=== PATIENT | female | born 1970 | race Caucasian/White ===

== ENCOUNTER 2019-07-29 10:07 | Emergency (ER) | payer SELFPAY ==
[2019-07-29 10:13] VITALS: BP 176/106; PULSE 79; RESP 22; TEMP 36.3; O2SAT 100
--- NOTE | 2019-07-29 10:34 | ED.GENADUL_ITS ---
Discharge Plan Disposition Patient Disposition: HOME Condition: Stable Discharge Details Chief Complaint: Nausea/Vomit/Diar Clinical Impression: Gastroenteritis, Proctitis, Colitis Primary Care Provider: Prisca Gutierrez ED Provider: Rahel Carlisle Home Meds and New Rx's Prescriptions: New hydrochlorothiazide 12.5 mg tablet 12.5 mg PO DAILY 30 Days Qty: 30 RF: 0 ondansetron HCl [Zofran] 4 mg tablet 4 mg PO Q8H PRN (Reason: nausea and vomiting) Qty: 7 RF: 0 Discontinued chlorthalidone 25 mg Tablet 25 mg PO DAILY RF: 0 lisinopril 10 mg Tablet 10 mg PO DAILY RF: 0 Discharge Instructions Instructions: Proctitis (ED), Gastroenteritis (ED), Colitis (ED) Additional Instructions: You may have a viral gastrointestinal infection which can be self-limited and lasts for the next few days which is commonly referred to as gastroenteritis. Your CAT scan also noted inflammation in your small intestine and a sending colon which is consistent with colitis. There was also a significant amount of inflammation noted in your rectal wall which can be referred to as proctitis. You were evaluated by general surgeon Dr. Fajardo in the emergency department today. She recommends that you follow-up in the general surgery office within the next 1 to 2 weeks for reevaluation and for scheduling a colonoscopy. Take the Zofran as needed and directed for nausea and vomiting. Drink plenty of fluids. Follow a bland diet of bananas, rice, applesauce, toast. Stop taking your lisinopril and chlorthalidone. Once your current illness resolves and if your blood pressure remains high, you can start taking the hydrochlorothiazide. Follow-up with your primary care doctor within the next 2 weeks for reevaluation. Return to the emergency department if you develop any worsening or concerning symptoms such as fever, worsening pain or vomiting. Referrals: Tonja Fajardo DO [OSTEOPATHIC DOCTOR] - Discharge Data Discharge Physician: Rahel Carlisle Medical Decision Making 1020 -- 49-year-old female with history of hypertension and obesity presents with vomiting, diarrhea and abdominal pain since last night. She states she saw her PCP a few days ago for her hypertension and she started lisinopril a few days ago and chlorthalidone last night. She also states she recently changed her diet to try to lose weight due to her hypertension and that she ate a burger and lunch meat sandwich yesterday. She denies recent antibiotics or travel. She denies fever or urinary symptoms. Skin to the buttocks appears consistent with a local inflammation irritation, likely from sitting on the toilet from frequent bouts of diarrhea, versus contac t dermatitis, versus tinea corporis vs early cellulitis. Patient appears uncomfortable, mainly due to her nausea and is noted to be sitting up and belching and hyperventilating. She has tenderness to palpation across her lower abdomen, worse in right lower quadrant. Differential diagnosis includes gastroenteritis, medication reaction, food poisoning, appendicitis, colitis, UTI. Will place an IV, bolus IV fluids, screening labs, urinalysis, urine test as well as CT abdomen and pelvis. Will give a dose of Zofran and reassess. 1115 --patient reassessed -after no relief with Zofran she was given a dose of Compazine. She feels better now. 1200 --patient reassessed - c/o pain. Will give a dose of morphine. Labs reviewed. WBC 15. Lipase, electrolytes within normal limits. Urinalysis notes 3-5 WBCs but appears contaminated. 1245 --CT reviewed with radiologist and notes severe rectal wall thickening which could be consistent with a severe proctitis or possibly a rectal carcinoma and recommends colonoscopy or sigmoidoscopy. Results discussed with general surgery Dr. Fajardo who will come to evaluate patient in the ED. patient is requesting to go home as she is uncomfortable in the bed here. She states she feels better and would rather be at home. She is agreeable to stay to wait for surgery. 1400 --discussed with Dr. Fajardo -evaluated patient at bedside and recommends patient follow-up in the surgery office within the next 1 to 2 weeks for reevaluation and colonoscopy. Leukocytosis may be due to gastroenteritis at this time. Patient feels much better and appears much more comfortable. We will send with Zofran and she is advised to drink plenty of fluids and a bland diet. Also discussed with Dr. Gutierrez patient's primary care doctor regarding patient's hypertension and agrees with stopping the lisinopril and chlorthalidone at this time. Will start hydrochlorothiazide once current illness resolves. Patient advised to follow-up with the primary care doctor and surgery and to return here with any concerns. Medical Records Medical records reviewed: Yes I reviewed the patient's medical records. Imaging Data Radiologic Study: Radiologist's impression: CT ABDOMEN PELVIS W CLINICAL HISTORY: lower abd pain, worse RLQ, r/o appendicitis TECHNIQUE: CT examination of the abdomen and pelvis was performed with bolus infusion of 100 cc of Omnipaque 350. COMPARISON: RENAL COLIC WO CONTRAST from 05/17/2017 UPPER ABD WITH CONTRAST (P) from 01/08/2018 FINDINGS: Images obtained through the lung bases are unremarkable. Liver, spleen and pancreas appear normal. Gallbladder and bile ducts are CT normal. 23 millimeter left adrenal mass again noted, grossly unchanged in comparison with prior CT of 05/17/2017. Adrenals and kidneys are otherwise unremarkable. No significant abdominal wall hernia seen. No significant abdominal or pelvic adenopathy. Abdominal aorta is of normal diameter and no major vascular abnormality is seen. Appendix appears normal. Colon and most of the small bowel is collapsed which makes evaluation of wall thickness uncertain but there is a question of wall thickening of the terminal ileum and ascending colon. There is marked wall thickening and apparent edema of the rectum and the distal sigmoid with very prominent increased attenuation in the perirectal fat as well as some free fluid. The increased attenuation in perirectal fat has a somewhat nodular appearance. No gross free air identified. [place] structures appear intact. IMPRESSION: Very abnormal appearance of the rectum, severe acute inflammatory or infectious process is probably most likely but the possibility of neoplastic disease would have to be raised. Correlation with colonoscopy recommended. Additionally there is questionable wall thickening of terminal ileum and ascending colon raising the possibility of colitis. Apparently stable left adrenal lesion, 23 millimeters. Lab Data Lab results reviewed: Yes I reviewed the patient's lab results. Labs: Laboratory Tests Range/Units 07/29/19 07/29/19 07/29/19 10:20 10:20 11:05 WBC (4.4-10.8) k/cumm 15.52 H RBC (4.00-5.20) m/cumm 5.26 H Hgb (12.0-15.5) g/dL 15.6 H Hct (36.0-46.0) % 47.6 H MCV (80-95) fL 90.5 MCH (27.0-33.0) pg 29.7 MCHC (32.0-36.0) g/dL 32.8 RDW (11.7-14.6) % 13.3 Plt Count (130-400) x1000/uL 575 H MPV (8.0-11.0) fL 9.5 Immature Gran % 0.2 Neutrophils % 88.1 Lymphocytes % 8.4 Monocytes % 3.1 Eosinophils % 0.1 Basophils % 0.1 Absolute Neutrophils (1.2-6.7) k/cumm 13.67 H Absolute Lymphocytes (1.2-3.4) k/cumm 1.30 Absolute Monocytes (0.11-0.7) k/cumm 0.48 Absolute Eosinophils (0.0-0.7) k/cumm 0.02 Absolute Basophils (0.0-0.2) k/cumm 0.02 Sodium (136-145) mmol/L 134 L Potassium (3.5-5.1) mmol/L 4.2 Chloride (98-107) mmol/L 98 Carbon Dioxide (21.0-32.0) mmol/L 21.4 Anion Gap (3-11) mmol/L 14.6 H BUN (7-18) mg/dL 14 Creatinine (0.55-1.02) mg/dL 1.10 H Estimated GFR/1.73 m2 (mL/min/1.73m2) 53.01 Glucose (70-100) mg/dL 163 H Calcium (8.5-10.1) mg/dL 9.4 Total Bilirubin (0.2-1.0) mg/dL 0.9 AST (15-37) U/L 21 ALT (14-59) U/L 39 Alkaline Phosphatase (46-116) U/L 113 Total Protein (6.4-8.2) g/dL 8.7 H Albumin (3.4-5.0) g/dL 3.9 Lipase (73-393) U/L 90 Urine Color (Yellow) Sofi Urine Clarity (Clear) Cloudy Urine pH (5-8) 6.0 Ur Specific [place] (1.005-1.025) 1.025 Urine Protein (Negative) mg/dL 100 H Urine Ketones (Negative) mg/dL 80 H Urine Blood (Negative) Trace-lysed H Urine Nitrite (Negative) Negative Urine Bilirubin (Negative) Small H Urine Urobilinogen (Up TO 0.2) EU/dL 0.2 Ur Leukocyte Esterase (Negative) Negative Urine RBC (0-2) 0-2 Urine WBC (0-5) HPF 3-5 Ur Epithelial Cells (Negative) HPF Many Urine Crystals (Negative) HPF Negative Urine Bacteria (Negative) HPF Many Urine Casts (Negative) LPF Negative Urine Mucus (Negative) Heavy Urine Other (Negative) Few yeast Ur Culture Indicated? No/sq. contamination Urine Glucose (Negative) mg/dL Negative HPI General Mode of arrival: ambulatory . Date/Time Provider Initiated Documentation: 07/29/19 10:07 . Limitations to Documentation: no limitations . Information obtained by: patient . History of Present Illness described as moderate, with intensity rated at 5. Quality is described as aching, and is localized to the abdomen. Patient reports no radiation. Patient started experiencing this day(s) and it has been constant. other things that improve symptom(s), (nausea improved with belching) Movement worsens symptoms (nausea worse with movement/supine) . Patient notes nausea/vomiting (5 episodes, mainly bile ) and other (5+ episodes of diarrhea, small formed mixed with water, brown, no blood); denies confusion, chest pain, cough, diaphoresis, fever/chills, headaches, loss of appetite, malaise, rash, seizure, shortness of breath, syncope and weakness. Patient did receive the following treatments prior to arrival, none Related Data Home Medications Medication Instructions Recorded Confirmed hydrochlorothiazide 12.5 mg PO DAILY 30 Days #30 tab 07/29/19 ondansetron HCl [Zofran] 4 mg PO Q8H PRN #7 tab 07/29/19 Previous Rx's Medication Instructions Recorded hydrochlorothiazide 12.5 mg PO DAILY 30 Days #30 tab 07/29/19 ondansetron HCl [Zofran] 4 mg PO Q8H PRN #7 tab 07/29/19 Allergies Allergy/AdvReac Type Severity Reaction Status Date / Time Penicillins Allergy Mild Skin Rash Unverified 07/29/19 10:19 lisinopril AdvReac Unverified 07/29/19 10:19 General Stated Complaint: Nausea/Vomit/Diar PHUONG: 3 Review of Systems All systems reviewed & are unremarkable except as noted in HPI and below Constitutional Constitutional: Reports as per HPI, Denies chills and Denies fever(s) Eyes Eyes: Denies blurry vision ENT Ears, Nose, Mouth, and Throat: Denies dizziness, Denies sore throat and Denies throat swelling Cardiovascular Cardiovascular: Denies chest pain and Denies dyspnea Respiratory Respiratory: Denies cough and Denies dyspnea Gastrointestinal Gastrointestinal: Reports abdominal pain, Reports diarrhea and Reports vomiting Genitourinary Genitourinary: Denies hematuria and Denies dysuria Musculoskeletal Musculoskeletal: Denies back pain and Denies numbness Integumentary/Breasts Skin/Breast: Denies lesions and Denies rash Neurologic Neurologic: Denies dizziness, Denies focal weakness and Denies numbness Allergic/Immunologic Allergic/Immunologic: Denies throat swelling [facility] Medical History History of cervical dysplasia HTN (hypertension) Impaired fasting glucose Lumbar back pain Obesity Sciatica of right side Situational, disturbance, acute Tobacco abuse Surgical History Melanoma (Acute) Family History Mother Breast cancer Other Asthma Social History Smoking/Tobacco Use Status: Current every day Alcohol Intake: current Alcohol Intake frequency: a few times a month Drug use: Never Substance use type: does not use Do you feel safe at home: Yes Do you feel safe in your relationship?: Yes Exam Const General: cooperative, uncomfortable and no acute distress Orientation: alert and awake HENMT Head: normal to inspection Face and sinus: normal facial exam Eyes General: appearance normal, both eyes and all related structures EOM: EOM intact bilaterally Neck Neck: normal visual inspection and No submandibular swelling Lymphatic: no lymphadenopathy noted Chest Chest: normal inspection of the chest and no tenderness Resp Effort & Inspection: normal respiratory effort and able to speak in complete sentences Auscultation: clear to auscultation bilaterally Cardio Rate: regular rate Rhythm: regular rhythm GI Inspection: normal to inspection Palpation: soft, not firm, not rigid and tender (across lower abdomen, worse in RLQ) Auscultation: normal bowel sounds Back/Spine/Pelvis Back/spine/pelvis image: 1. Erythematous tender blanching erythema with intermittent small papules with some areas of central clearing and slight hyperpigmentation of border. Skin General skin exam: no rashes or lesions noted Neuro General: alert, awake and oriented x3 Cognition: normal cognition Speech: speech normal Motor: muscle tone normal throughout Sensory Exam: no sensory deficits noted Extrem General: normal to inspection, full ROM, normal capillary refill, no calf t enderness bilaterally and no edema Psych Appearance: grossly normal Mental Status: mental status grossly normal Speech and Movement: speech and movement normal Affect: normal affect Course Vital Signs Vital signs: Vital Signs Temperature 97.3 F L 07/29/19 10:13 Pulse 79 07/29/19 10:13 Respiratory Rate 22 07/29/19 10:13 Blood Pressure 176/106 H 07/29/19 10:13 Pulse Oximetry 100 07/29/19 10:13 Temperature 97.3 F L 07/29/19 10:13 Pulse 79 07/29/19 10:13 Respiratory Rate 22 07/29/19 10:13 Respiratory Effort Non-Labored 07/29/19 10:17 Blood Pressure 176/106 H 07/29/19 10:13 Blood Pressure Position Sitting 07/29/19 10:13 Pulse Oximetry 100 07/29/19 10:13 Oxygen Delivery Method Room Air 07/29/19 10:13 Oxygen Flow Rate 0 07/29/19 10:13 Pain Level 8 07/29/19 10:13
[2019-07-29] MEDS: Normal Saline 1,000 ML 1000 ML IV ×2 (10:35→12:20)
--- NOTE | 2019-07-29 10:35 | DI.CT_ITS ---
EXAM: CT ABDOMEN PELVIS W CLINICAL HISTORY: lower abd pain, worse RLQ, r/o appendicitis TECHNIQUE: CT examination of the abdomen and pelvis was performed with bolus infusion of 100 cc of O mnipaque 350. COMPARISON: RENAL COLIC WO CONTRAST from 05/17/2017 UPPER ABD WITH CONTRAST (P) from 01/08/2018 FINDINGS: Images obtained through the lung bases are unremarkable. Liver, spleen and pancreas appear normal. Gallbladder and bile ducts are CT normal. 23 millimeter left adrenal mass again noted, grossly unch anged in comparison with prior CT of 05/17/2017. Adrenals and kidneys are otherwise unremarkable. No significant abdominal wall hernia seen. No significant abdominal or pelvic adenopathy. Abdominal aorta is of normal diameter and no major vascular abnormality is seen. Appendix appears normal. Colon and most of the small bowel is collapsed which makes evaluation of wa ll thickness uncertain but there is a question of wall thickening of the terminal ileum and ascending colon. There is marked wall thickening and apparent edema of the rectum and the distal sigmoid with very prominent increased attenuation in the perirectal fat as well as some free fluid. The increase d attenuation in perirectal fat has a somewhat nodular appearance. No gross free air identified. Gy n structures appear intact. IMPRESSION: Very abnormal appearance of the rectum, severe acute inflammatory or infectious process is probably m ost likely but the possibility of neoplastic disease would have to be raised. Correlation with colon oscopy recommended. Additionally there is questionable wall thickening of terminal ileum and ascending colon raising the possibility of colitis. Apparently stable left adrenal lesion, 23 millimeters.
[2019-07-29] MEDS: Ondansetron 4 MG/2 ML VIAL IVP (10:45)
[2019-07-29 10:49] LABS: Abs Immature Grans 0.03 k/cumm (0.0-0.09); Absolute Basophil Count 0.02 k/cumm (0.0-0.2); Absolute Eosinophil Count 0.02 k/cumm (0.0-0.7); Absolute Monocyte Count 0.48 k/cumm (0.11-0.7); Absolute Neutrophil Count 13.67 k/cumm (1.2-6.7); Basophils % 0.1; Eosinophils % 0.1; HCT 47.6 % (36.0-46.0); HGB 15.6 g/dL (12.0-15.5); Immature Grans % 0.2; Lymphocytes % 8.4; Mean Corp. HGB Concentration 32.8 g/dL (32.0-36.0); Mean Corpuscular Hemoglobin 29.7 pg (27.0-33.0); Mean Corpuscular Volume 90.5 fL (80-95); Mean Platelet Volume 9.5 fL (8.0-11.0); Monocytes % 3.1; Neutrophils % 88.1; Platelet Count 575 x1000/uL (130-400); RBC 5.26 m/cumm (4.00-5.20); RBC Distribution Width 13.3 % (11.7-14.6); White Blood Cell Count 15.52 k/cumm (4.4-10.8)
[2019-07-29 10:59] LABS: ALT 39 U/L (14-59); AST 21 U/L (15-37); Albumin 3.9 g/dL (3.4-5.0); Alkaline Phosphatase 113 U/L (46-116); Anion Gap 14.6 mmol/L (3-11); BUN 14 mg/dL (7-18); Bilirubin, Total 0.9 mg/dL (0.2-1.0); CO2 21.4 mmol/L (21.0-32.0); Calcium 9.4 mg/dL (8.5-10.1); Chloride 98 mmol/L (98-107); Estimated GFR 53.01 (mL/min/1.73m2); Glucose 163 mg/dL (70-100); Lipase 90 U/L (73-393); Potassium 4.2 mmol/L (3.5-5.1); Sodium 134 mmol/L (136-145); Total Protein 8.7 g/dL (6.4-8.2)
[2019-07-29] MEDS: Prochlorperazine 10 MG/2 ML VIAL (11:04)
[2019-07-29] MEDS: Normal Saline Flush 10 ML SYR IVP (11:13)
[2019-07-29 11:20] LABS: Bilirubin Small (Negative); Blood Trace-lysed (Negative); Clarity Cloudy (Clear); Glucose Negative (Negative); Ketones 80 mg/dL (Negative); Leukocyte Esterase Negative (Negative); Nitrite Negative (Negative); Specific Gravity 1.025 (1.005-1.025); Urobilinogen 0.2 EU/dL (Up TO 0.2)
[2019-07-29 11:37] LABS: Bacteria Many HPF (Negative); C & S Indicated? No/Sq. Contamination; Casts Negative LPF (Negative); Crystals Negative HPF (Negative); Epithelial Cells Many HPF (Negative); Mucus Heavy (Negative); Other Cells Few Yeast (Negative); RBC 0-2 (0-2)
[2019-07-29 11:42] VITALS: BP 119/63; PULSE 86; O2SAT 96
[2019-07-29] MEDS: Omnipaque 350 MG/ML 100 ML BTL IV (12:11)
[2019-07-29] MEDS: LORazepam 2 MG/ML VIAL (13:13)
[2019-07-29 13:42] VITALS: BP 181/81; PULSE 97; O2SAT 96
--- NOTE | 2019-07-29 13:46 | SCONE_ITS ---
Assessment and Plan Assessment and plan (1) Diarrhea: Status: Acute Assessment and plan: favor viral G-E vs food poisoning and supportive care From her history- this does not sound like an acute episode of IBD that would require steriods. She has no recent abx use or hospital exposure and C. diff is low. She should f/u in 2-4 wks and schedule for CE given the signif findings on CT scan (2) Abnormal CT scan, colon: Status: Acute History of Present Illness History of Present Illness Chief Complaint: p Narrative: pt has badominal pain in the lower segments and in rectal area. Started last pm. Recently started taking the HCTZ. started about 4-6 hrs after she took. Might have eaten some bad food. + vomting. pain was first. than fecal urgency adn diarrhea and than vomting. +chills. no prior hx. no one else at home is sick. no new pets. no camping or travel out of the state. Swelling showed up w/ taking new medication. no family hx of IBD. GPa had MM. no new rashes or joint pain. Review of Systems All systems reviewed & are unremarkable except as noted in HPI and below [facility] Medical History (Updated 08/03/19 @ 16:08 by Tonja Fajardo DO) Abnormal CT scan, colon (Acute) Diarrhea (Acute) History of cervical dysplasia HTN (hypertension) Impaired fasting glucose Lumbar back pain Obesity Sciatica of right side Situational, disturbance, acute Tobacco abuse Surgical History Melanoma (Acute) Family History Mother Breast cancer Other Asthma Social History Smoking/Tobacco Use Status: Current every day Alcohol Intake: current Alcohol Intake frequency: a few times a month Drug use: Never Substance use type: does not use Do you feel safe at home: Yes Do you feel safe in your relationship?: Yes Exam Const General: cooperative, healthy appearing, comfortable, no acute distress, well developed and well groomed Nutritional Appearance: average body habitus and well nourished Orientation: alert, awake and oriented x3 HENMT Head: normal to inspection, normocephalic and atraumatic Ears: hearing grossly normal bilaterally and external ears normal General nose exam: external nose normal Face and sinus: normal facial exam and sinuses nontender Mouth: oral mucosae normal, lip normal, tongue normal and moist mucous membranes Teeth and gingiva: dentition normal Eyes General: appearance normal, both eyes and all related structures Conjunctivae: conjunctivae normal Sclera: sclerae normal Pupils: PERRL Neck Neck: normal visual inspection and full ROM Chest Chest: normal inspection of the chest Resp Effort & Inspection: normal respiratory effort, able to speak in complete sentences, no cough, no nasal flaring, not tachypneic and no use of accessory muscles Auscultation: clear to auscultation bilaterally, no rales, no rhonchi and no wheezes Cardio Jugular venous pressure: no JVD Rate: regular rate Rhythm: regular rhythm GI Inspection: normal to inspection, no edema and non-distended Palpation: soft, no masses, nontender and No ascites Auscultation: normal bowel sounds Skin General skin exam: no rashes or lesions noted Trauma: no lacerations or abrasions Other: skin on buttocks is nl. Qi-anal area shows mild excoriation from wiping. no bleeding. no masses Neuro General: alert, oriented x3, oriented, gait normal, moves all extremities, no focal motor deficits and CN's II-XI intact bilaterally Cognition: normal cognition Speech: speech normal Gait: normal gait Motor: muscle tone normal throughout Extrem General: normal to inspection, full ROM and no clubbing, cyanosis or edema Psych Appearance: grossly normal and well kempt Mental Status: mental status grossly normal Speech and Movement: speech and movement normal Affect: normal affect Results Last Vital Signs Temp 36.3 C L 07/29/19 10:13 Pulse 97 H 07/29/19 13:42 Resp 22 07/29/19 10:13 BP 181/81 H 07/29/19 13:42 Pulse Ox 96 07/29/19 13:42 Labs Result diagrams: 07/29/19 10:20 07/29/19 10:20 Labs: Laboratory Results - last 24 hr 07/29/19 07/29/19 07/29/19 10:20 10:20 11:05 WBC 15.52 H RBC 5.26 H Hgb 15.6 H Hct 47.6 H MCV 90.5 MCH 29.7 MCHC 32.8 RDW 13.3 Plt Count 575 H MPV 9.5 Immature Gran % 0.2 Neutrophils % 88.1 Lymphocytes % 8.4 Monocytes % 3.1 Eosinophils % 0.1 Basophils % 0.1 Absolute Neutrophils 13.67 H Absolute Lymphocytes 1.30 Absolute Monocytes 0.48 Absolute Eosinophils 0.02 Absolute Basophils 0.02 Sodium 134 L Potassium 4.2 Chloride 98 Carbon Dioxide 21.4 Anion Gap 14.6 H BUN 14 Creatinine 1.10 H Estimated GFR/1.73 m2 53.01 Glucose 163 H Calcium 9.4 Total Bilirubin 0.9 AST 21 ALT 39 Alkaline Phosphatase 113 Total Protein 8.7 H Albumin 3.9 Lipase 90 Urine Color Sofi Urine Clarity Cloudy Urine pH 6.0 Ur Specific [place] 1.025 Urine Protein 100 H Urine Ketones 80 H Urine Blood Trace-lysed H Urine Nitrite Negative Urine Bilirubin Small H Urine Urobilinogen 0.2 Ur Leukocyte Esterase Negative Urine RBC 0-2 Urine WBC 3-5 Ur Epithelial Cells Many Urine Crystals Negative Urine Bacteria Many Urine Casts Negative Urine Mucus Heavy Urine Other Few yeast Ur Culture Indicated? No/sq. contamination Urine Glucose Negative
[2019-07-29] MEDS: Ondansetron O.D.T. 4 MG TABEF, 3 TABS/BTL PO (14:25)
[2019-08-04 23:10] LABS: Saccharomyces cerevisiae IgA 10.2 U; Saccharomyces cervisiae IgG 14.1 U
== END 2019-07-29 14:20 | disposition home or self-care (01) ==
PROVIDERS: Surgery; Emergency Provider Physician Assistant; PCP Family Medicine
DX: K52.9 Noninfective gastroenteritis and colitis, unspecified (principal); K62.89 Other specified diseases of anus and rectum; I10 Essential (primary) hypertension
CPT/HCPCS: 36415; 80053; 83690; 96361; 96374; 99252; 99285; 74177; 81003; 81015; 85025; 86255; 86671; 99284; J0780; J2060; J2405; J3490

== ENCOUNTER 2019-08-28 07:06 | Emergency (ER) | payer SELFPAY ==
[2019-08-28 07:09] VITALS: BP 139/95; PULSE 80; RESP 18; TEMP 36.4; O2SAT 97
[2019-08-28] MEDS: Clindamycin 300 MG CAP 600 MG PO (08:23)
--- NOTE | 2019-08-28 08:23 | W.ED.GENAD ---
Discharge Plan Disposition Patient Disposition: HOME Condition: Good Discharge Details Chief Complaint: DentalOral Clinical Impression: Contusion of face, Lip injury Primary Care Provider: Prisca Gutierrez ED Provider: Marleni Sanz Home Meds and New Rx's Prescriptions: New clindamycin HCl 300 mg capsule 300 mg PO TID Qty: 30 RF: 0 No Action ondansetron HCl [Zofran] 4 mg tablet 4 mg PO Q8H PRN (Reason: nausea and vomiting) Qty: 7 RF: 0 hydrochlorothiazide 25 mg Tablet 25 mg PO DAILY RF: 0 Discharge Instructions Instructions: Contusion in Adults (ED) Additional Instructions: Ice to area of swelling. Keep head of bed elevated. Use antibiotic as prescribed. Observe for any increased swelling, pain or discomfort. Return for any worsening, concerns or alarming symptoms sooner if needed. Recheck with primary care doctor if not improving the next 3 to 5 days. Return if needed. Medical Decision Making 49-year-old very pleasant woman presents to the emergency room after being struck in the face with an electrical cord yesterday. Patient presents due to persistent and increasing swelling to her upper lip and cheeks. Patient is concerned with persistent discomfort and swelling. Patient denies dental injury or obvious trauma. No shifting of teeth or dental pain. Patient is concerned with the possibility of infection. We did discuss conservative treatments including icing anti-inflammatory and elevating head which she has reportedly done in the last 24 hours. Discussed antibiotic treatment versus close observation. Patient's preference is antibiotic treatment at this time. Patient is noted to have a penicillin allergy therefore clindamycin will be prescribed. Ice, anti-inflammatory and elevation of head were re-encouraged. Patient reports her understanding. Alarming symptoms for which she should have return were encouraged. The patient was stable and requested discharge. Prior to discharge, my usual and customary return precautions were reviewed with the patient - this included follow-up instructions and reasons to return to the Emergency Department if conditions worsens, does not improve as expected, or other new concerns arise. HPI General Date/Time Provider Initiated Documentation: 08/28/19 08:07. HPI Narrative: Is a very pleasant 49-year-old man who presents to the emergency room after facial trauma. Patient reports she was at work yesterday pulling along extension cord and it snapped back striking her in the upper lip of the face. Patient reports persistent and increasing swelling of her lip and face. Patient has tried icing as well as anti-inflammatory and elevating her head without relief. Patient is concerned with the persistence of swelling. Swelling now extending toward the cheeks. Patient denies dental pain. Denies any obvious shifting of her teeth. No loose teeth. Patient denies any vision changes. No nasal involvement. No other concerns or complaints at this time. Eating and drinking without difficulty. Related Data Home Medications Medication Instructions Recorded Confirmed ondansetron HCl [Zofran] 4 mg PO Q8H PRN #7 tab 07/29/19 clindamycin HCl 300 mg PO TID #30 cap 08/28/19 hydrochlorothiazide 25 mg PO DAILY 08/28/19 08/28/19 Previous Rx's Medication Instructions Recorded ondansetron HCl [Zofran] 4 mg PO Q8H PRN #7 tab 07/29/19 clindamycin HCl 300 mg PO TID #30 cap 08/28/19 Allergies Allergy/AdvReac Type Severity Reaction Status Date / Time Penicillins Allergy Mild Skin Rash Unverified 08/28/19 07:13 lisinopril AdvReac Unverified 08/28/19 07:13 General Stated Complaint: DentalOral PHUONG: 4 Review of Systems All systems reviewed & are unremarkable except as noted in HPI and below Constitutional Constitutional: Denies chills, Denies fever(s) and Denies headache(s) ENT Ears, Nose, Mouth, and Throat: Denies bleeding gums, Denies dental pain and Denies headache(s) Integumentary/Breasts Skin/Breast: Reports skin swelling Neurologic Neurologic: Denies headache(s) [facility] Medical History Abnormal CT scan, colon (Acute) Diarrhea (Acute) History of cervical dysplasia HTN (hypertension) Impaired fasting glucose Lumbar back pain Obesity Sciatica of right side Situational, disturbance, acute Tobacco abuse Surgical History Melanoma (Acute) Social History Smoking/Tobacco Use Status: Current every day Alcohol Intake: current Alcohol Intake frequency: a few times a month Drug use: Never Substance use type: does not use Do you feel safe at home: Yes Do you feel safe in your relationship?: Yes Exam Narrative Exam Narrative: CONST: Healthy appearing patient, in no acute distress. Well hydrated. Alert and alert. HENMT: Head nomocephalic, normal to inspection. Atraumatic. Hearing grossly normal. Patient with obvious upper lip swelling which is approximately double the size of her lower lip, cheeks bilaterally with mild edema. Obvious area of ecchymosis noted to the upper right side of the lip. No obvious loose teeth. No dental tenderness with palpation. TMs appear normal bilaterally. Pharynx is mildly erythematous without exudate EYES: General normal appearance. Alignment normal. Eyelids normal. Conjunctiva normal. NECK: Normal visual inspection. FROM. Trachea midline. No Midline tenderness. CHEST: Normal insepection of the chest. RESP: Normal respiratory effort. Speaking full sentences. No cough. No audible wheezing. No retractions. CARDIO: No JVD. SKIN: Normal. Dry. No rashes. Course Vital Signs Vital signs: Vital Signs Temperature 36.4 C L 08/28/19 07:09 Pulse 80 08/28/19 07:09 Respiratory Rate 18 08/28/19 07:09 Blood Pressure 139/95 H 08/28/19 07:09 Pulse Oximetry 97 08/28/19 07:09 Temperature 36.4 C L 08/28/19 07:09 Temperature Source Skin 08/28/19 07:09 Pulse 80 08/28/19 07:09 Respiratory Rate 18 08/28/19 07:09 Respiratory Effort 08/28/19 07:14 Blood Pressure 139/95 H 08/28/19 07:09 Blood Pressure Position Sitting 08/28/19 07:09 Pulse Oximetry 97 08/28/19 07:09 Oxygen Delivery Method Room Air 08/28/19 07:09 Oxygen Flow Rate 0 08/28/19 07:09 Pain Level 5 08/28/19 07:09
== END 2019-08-28 08:28 | disposition home or self-care (01) ==
LOC: ER 08:32
PROVIDERS: Emergency Provider Physician Assistant; PCP Family Medicine
DX: S09.93XA Unspecified injury of face, initial encounter (principal); S00.83XA Contusion of other part of head, initial encounter; R22.0 Localized swelling, mass and lump, head; W20.8XXA Other cause of strike by thrown, projected or falling object, initial encounter; Y99.0 Civilian activity done for income or pay; I10 Essential (primary) hypertension
CPT/HCPCS: 99283

== ENCOUNTER 2020-01-29 13:00 | Outpatient (REF) | payer BC, SELFPAY ==
[2020-02-01 15:51] LABS: COVID-19 RT-PCR UVMMC Result Negative (Negative)
== END 2020-01-29 13:20 ==
LOC: NCHCN 13:00
PROVIDERS: PCP Family Medicine; Visit Provider Family Medicine
DX: J02.9 Acute pharyngitis, unspecified (principal); Z03.818 Encounter for observation for suspected exposure to other biological agents ruled out
CPT/HCPCS: U0003

== ENCOUNTER 2020-05-06 02:21 | Outpatient (CLI) | payer BC, SELFPAY ==
--- NOTE | 2020-05-06 | DI.MAMMO_ITS ---
EXAM: MG MAMMO SCREENING CLINICAL HISTORY: SCREENING, [facility],Z00.00 TECHNIQUE: Bilateral full field digital CC and MLO mammographic images were obtained with 3D tomosyn thesis and utilizing computer aided detection (CAD). COMPARISON: Available for comparison. FINDINGS: Masses/Architectural Distortion: There is increased prominence of a focal asymmetric area in the medi al right breast on the craniocaudad view. Microcalcifications: No suspicious pleomorphic-type are seen. Skin Thickening/Nipple Retraction: None. IMPRESSION: 1. Increased prominence of a focal asymmetric density in the medial right breast on the craniocaudad view. 2. Spot CC view and ultrasound are requested for further evaluation. BI-RADS Category 0 - Assessment Incomplete: Need additional imaging evaluation Breast Density - Category B - Scattered areas of fibroglandular density A negative radiographic report should not delay biopsy if a dominant or clinically suspicious mass is present. Up to ten percent of cancers are not identified on mammography. A negative report may reinforce clinical impression. Adenosis and dense breasts may obscure an underlying neoplasm. False positive reports average 6 to 10%. Patient will receive a letter notifying them of these results.
== END 2020-05-06 02:41 ==
PROVIDERS: PCP Family Medicine; Visit Provider Family Medicine
DX: Z12.31 Encounter for screening mammogram for malignant neoplasm of breast (principal)
CPT/HCPCS: 77063; 77067

== ENCOUNTER 2020-05-11 01:41 | Outpatient (CLI) | payer BC, SELFPAY ==
--- NOTE | 2020-05-11 | DI.US_ITS ---
EXAM: MG MAMMO SCREEN CALL BACK UNI CLINICAL HISTORY: F/U MAMMO, INCREASED ASYMMETRIC DENSITY ON CC VIEWE TECHNIQUE: Spot compression views including C- View and tomographic imaging were performed. COMPARISON: 06 May 2020 and exams from 2011 and 2016. FINDINGS: Cc and MLO spot compression views were performed of the medial and central right breast. There is a small area persistent nodularity. Right breast ultrasound shows an ovoid fluid collection in the upper inner quadrant 6 centimeters fro m the nipple measuring 9 x 5 x 5 millimeters. There is a small central hilum, likely representing a lymph node. In the upper outer quadrant, 7 cm from the nipple there is a normal appearing lymph node which is also seen on mammograms. A 4 millimeters cyst is seen in the 12 o'clock position 2 cm from the nipple. An 11 millimeter cyst is seen in the 11 o'clock position, 1 cm from the nipple. IMPRESSION: Right breast: BI-RADS Category 3 - 6 month - Probably Benign Finding: Recommend follow-up mammography in 6 months. Recommend follow-up ultrasound in 6 months. Breast Density Category B, scattered fibroglandular densities.
== END 2020-05-11 02:01 ==
PROVIDERS: PCP Family Medicine; Visit Provider Family Medicine
DX: Z12.39 Encounter for other screening for malignant neoplasm of breast (principal); R92.8 Other abnormal and inconclusive findings on diagnostic imaging of breast; R92.2 Inconclusive mammogram
CPT/HCPCS: 76642; 77063; 77067

== ENCOUNTER → 2020-10-06 03:26 | Outpatient (CLI) | payer BC, SELFPAY ==
[2020-10-06 08:33] LABS: HCT 46.1 % (36.0-46.0); HGB 15.2 g/dL (11.2-15.7); MCH 30.6 pg (27.0-33.0); MCV 92.8 fL (80-95); MPV 9.2 fL (8.0-11.0); Platelet Count 428 10^3/uL (130-400); RBC 4.97 10^6/uL (3.93-5.22); RDW 12.8 % (11.7-14.6); RDW-SD 44.1 fL; WBC 11.08 10^3/uL (4.4-10.8)
[2020-10-06 08:44] LABS: Hemoglobin A1C 6.1 % (<5.7)
[2020-10-06 09:34] LABS: Anion Gap 10.7 mmol/L (3-11); BUN 12 mg/dL (7-18); CO2 26.3 mmol/L (21.0-32.0); CREATININE 0.82 mg/dL (0.55-1.02); Calcium 8.9 mg/dL (8.5-10.1); Calculated LDL 118 mg/dL (<100); Chloride 101 mmol/L (98-107); Cholesterol 199 mg/dL (<200); Glucose 135 mg/dL (74-106); HDL Cholesterol 43 mg/dL (40-60); Potassium 4.2 mmol/L (3.5-5.1); Sodium 138 mmol/L (136-145); TSH (W/Ref FT4) 3.93 uIU/mL (0.36-3.74); Triglyceride 190 mg/dL (<150)
[2020-10-11 14:19] LABS: Renin Activity, Plasma 4.1 ng/mL/h
== END ==
PROVIDERS: PCP Family Medicine; Visit Provider Family Medicine
DX: I10 Essential (primary) hypertension (principal); R73.03 Prediabetes; E27.9 Disorder of adrenal gland, unspecified
CPT/HCPCS: 36415; 80048; 80061; 85027; 82088; 83036; 84244; 84439; 84443

== ENCOUNTER 2021-02-07 03:17 | Outpatient (CLI) | payer BC, SELFPAY ==
[2021-02-07 09:37] LABS: Abs Immature Grans 0.06 10^3/uL (0.0-0.06); Absolute Basophil Count 0.11 10^3/uL (0.0-0.2); Absolute Eosinophil Count 0.27 10^3/uL (0.0-0.7); Absolute Lymphocyte Count 2.05 10^3/uL (1.2-3.4); Absolute Monocyte Count 0.83 10^3/uL (0.1-0.8); Basophils % 0.9; Eosinophils % 2.2; HCT 47.1 % (36.0-46.0); HGB 15.4 g/dL (11.2-15.7); Immature Grans % 0.5; MCH 30.5 pg (27.0-33.0); MCHC 32.7 % (32.0-36.0); MCV 93.3 fL (80-95); MPV 9.3 fL (8.0-11.0); Monocytes % 6.9; Neutrophils % 72.5; Nucleated RBC 0 %; Platelet Count 394 10^3/uL (130-400); RBC 5.05 10^6/uL (3.93-5.22); RDW 13.2 % (11.7-14.6); RDW-SD 44.9 fL; WBC 12.05 10^3/uL (4.4-10.8)
[2021-02-07 09:40] LABS: Absolute Neutrophil Count 8.74 10^3/uL (1.2-6.7)
[2021-02-08 15:53] LABS: Erythropoietin 6.5 mIU/mL (2.6 - 18.5)
[2021-02-14 13:46] LABS: JAK2 Sequencing Result see interpretation
[2021-02-16 14:50] LABS: Indication for Study See Comments; Specimen Type Peripheral blood
[2021-02-16 14:51] LABS: BCR-ABL1 p210 FusionTranscript See Comments
[2021-02-16 14:52] LABS: BCR-ABL1 Interpretation See Comments; Limitations and Disclaimers See Comments
== END 2021-02-07 03:18 | disposition home or self-care (01) ==
LOC: LBO 03:17
PROVIDERS: PCP Family Medicine; Visit Provider Internal Medicine Hematology & Oncology
DX: D72.9 Disorder of white blood cells, unspecified (principal)
CPT/HCPCS: 0027U; 36415; 81206; 82668; 85025

== ENCOUNTER 2021-02-14 01:42 | Outpatient (CLI) | payer BC, SELFPAY ==
--- NOTE | 2021-02-14 14:35 | DI.MAMMO_ITS ---
Exam(s) MG MAMMO DIAGNOSTIC BI EXAM: MG MAMMO DIAGNOSTIC BI CLINICAL HISTORY: [facility] MAMMO F/U R92.8 TECHNIQUE: Mammograms were interpreted according to the usual protocol including computer analysis w ith CAD system, tomosynthesis and C-view imaging. Additional CC and MLO spot-compression views were performed of the medial and central portions of the right breast. COMPARISON: MG SCREENING JARRET MAMMO W/CAD DIGI from 10/25/2011 MG SCREENING JARRET MAMMO W/CAD DIGI from 10/25/2011 MG Screening Bilat Mammo from 07/10/2017 MG MG MAMMO SCREENING from 05/06/2020 MG MG MAMMO SCREENING from 05/06/2020 MG MG MAMMO SCREEN CALL BACK UNI from 05/11/2020 FINDINGS: The breasts are composed of scattered fibroglandular densities, Breast Density category B. The exam is is a six-month follow-up of the right breast and annual follow-up of the left breast. The previously questioned asymmetric density medially in the right breast is no longer present. Lymp h node is again noted in the upper outer quadrant. No suspicious masses or suspicious microcalcifica tions are seen in either breast.. No skin thickening or abnormal axillary lymph nodes are seen. IMPRESSION: BI-RADS Category 1, Negative mammogram Yearly screening mammography is recommended. Breast Density - Category B, scattered fibroglandular densities. A negative radiographic report should not delay biopsy if a dominant or clinically suspicious mass is present. Up to ten percent of cancers are not identified on mammography. A negative report may reinforce clinical impression. Adenosis and dense breasts may obscure an underlying neoplasm. False positive reports average 6 to 10%. Patient will receive a letter notifying them of these results.
== END 2021-02-14 02:02 ==
PROVIDERS: PCP Family Medicine; Visit Provider Family Medicine
DX: Z12.31 Encounter for screening mammogram for malignant neoplasm of breast (principal); R92.8 Other abnormal and inconclusive findings on diagnostic imaging of breast; N64.59 Other signs and symptoms in breast
CPT/HCPCS: 77062; 77066; G0279

== ENCOUNTER 2021-07-19 10:21 | Outpatient (REF) | payer BC, SELFPAY ==
[2021-07-19 15:00] LABS: Anion Gap 9.6 mmol/L (3-11); BUN 10 mg/dL (7-18); CO2 29.4 mmol/L (21.0-32.0); CREATININE 0.7 mg/dL (0.55-1.02); Calcium 9.6 mg/dL (8.5-10.1); Chloride 99 mmol/L (98-107); Glucose 115 mg/dL (74-106); Potassium 4.1 mmol/L (3.5-5.1); Sodium 138 mmol/L (136-145)
[2021-07-19 15:09] LABS: Hemoglobin A1C 6.2 % (<5.7)
== END 2021-07-19 10:22 | disposition home or self-care (01) ==
LOC: NCHCN 10:21
PROVIDERS: PCP Family Medicine; Visit Provider Family Medicine
DX: I10 Essential (primary) hypertension (principal); R73.03 Prediabetes
CPT/HCPCS: 80048; 83036

== ENCOUNTER 2021-10-12 05:07 | Emergency (ER) | payer BC, SELFPAY ==
[2021-10-12] VITALS (17 sets, daily range): BP systolic 133–143; BP diastolic 79–93; PULSE 73–86; RESP 13–20; TEMP 36.4; O2SAT 94–98
--- NOTE | 2021-10-12 05:09 | ED.GENADUL_ITS ---
Discharge Plan Disposition Patient Disposition: HOME Condition: Improving Discharge Details Clinical Impression: Angioedema Primary Care Provider: Prisca Gutierrez ED Provider: Storm Navarro Harpster Meds and New Rx's Prescriptions: New prednisone 20 mg tablet 40 mg PO HS Qty: 8 RF: 0 Continued hydrochlorothiazide 25 mg Tablet 25 mg PO DAILY RF: 0 amlodipine 10 mg tablet 10 mg PO DAILY RF: 0 Discharge Instructions Instructions: Angioedema (ED) Additional Instructions: Please take Benadryl 50 mg every 6-8 hours for the next couple of days. Start prednisone tonight and take as directed. Follow-up with primary care next week as scheduled. Return to the ED if increasing swelling, difficulty breathing, difficulty swallowing, fever. Referrals: Prisac Gutierrez MD [Primary Care Provider] - Medical Decision Making Patient presents with angioedema which she has had a couple of times previously but very mild. This has developed over a few hours. In the past responded to Benadryl so seems likely that this is histamine related or idiopathic and not bradykinin related. She is not on MAURICE inhibitor. She has had no new medications or exposures. Airway at this time is protected. I do not think this is infection related. She is not febrile and feels well otherwise. No pruritis or rash, no wheezing. Will place IV, check labs, give IV Benadryl and Solu-Medrol and reevaluate. Patient with fairly rapid and marked improvement with IV Benadryl and Solu- Medrol. At time of discharge still some mild tongue edema present but much much improved. We will continue Benadryl and prednisone orally at home. C4 comp lement lab pending but other laboratory studies unremarkable. She has an appointment with primary care next week already scheduled. Return to ED if increased swelling, difficulty breathing, difficulty swallowing, fever. Medical Records Medical records reviewed: Yes I reviewed the patient's medical records. Lab Data Lab results reviewed: Yes I reviewed the patient's lab results. HPI General Mode of arrival: ambulatory . Date/Time Provider Initiated Documentation: 10/12/21 05:09 . Limitations to Documentation: no limitations . Information obtained by: patient, RN notes reviewed and old records reviewed . HPI Narrative: Patient presents to ED with tongue swelling, difficulty swallowing, difficulty speaking. She has some pain and discomfort associated with. She went to bed last night feeling fine. She has not been ill. Woke up around midnight and noticed some mild swelling for which she took Benadryl. She was able to fall back asleep and woke up. This morning with more swelling. She took another Benadryl and then presented to the ED. She reports that this has happened once or twice in the past but did not to this extent. It responded to Benadryl. She has no new medications. She has allergy listed of lisinopril the patient does not aware of what the reaction was. She denies any pruritus or rash. She denies difficulty breathing. She denies any abdominal pain or vomiting. Related Data Home Medications Medication Instructions Recorded Confirmed hydrochlorothiazide 25 mg PO DAILY 08/28/19 10/12/21 amlodipine 10 mg PO DAILY 10/12/21 10/12/21 prednisone 40 mg PO HS #8 tab 10/12/21 Previous Rx's Medication Instructions Recorded prednisone 40 mg PO HS #8 tab 10/12/21 Allergies Allergy/AdvReac Type Severity Reaction Status Date / Time Penicillins Allergy Mild Skin Rash Unverified 10/12/21 05:35 lisinopril AdvReac Unverified 10/12/21 05:35 General PHUONG: 4 Review of Systems Narrative: 07/06 Review of Systems completed and is negative except as stated above in HPI (Systems reviewed: Const, Eyes, ENT, Resp, CV, GI, , MSK, Skin, Neuro) PFSH All Active Problems (Updated 10/12/21 @ 06:51 by Storm Navarro MD) Angioedema (Acute) Abnormal CT scan, colon (Acute) Diarrhea (Acute) Medical History History of cervical dysplasia HTN (hypertension) Impaired fasting glucose Obesity Ovarian cyst Proctitis Sacroiliac joint dysfunction Saphenous vein thrombophlebitis Sciatica Tobacco abuse Surgical History Melanoma Family History Mother Breast cancer Other Asthma Social History Smoking/Tobacco Use Status: Current every day Tobacco Type: cigarettes Smoking risk assessment performed?: Yes Alcohol Intake: current Alcohol Intake frequency: a few times a month Drug use: Never Substance use type: does not use Do you feel safe at home: Yes Do you feel safe in your relationship?: Yes Exam Narrative Exam Narrative: Const: Obese female in NAD. HEENT: NC/AT. Normal facial exam. Some mild swelling of lips but marked swelling of tongue L > R. Appears to have some edema to uvula but difficult to completely visualize. Eyes: Normal conjunctiva and sclera. Normal lids. Neck: Supple. Trachea midline. No stridor. Lungs: Normal respiratory effort. Lungs are clear. Cor: RRR without murmur/gallop. GI: Soft. NT/ND. Neuro: A+O x 3. Normal speech except for difficulty with phonation. Normal mentation, gait. Cranial nerves II - XII grossly intact. No gross motor or sensory deficit. Ext: No C/C/E. Skin: Warm and dry without rash.
[2021-10-12] MEDS: methylPREDNISolone SUCC 125 MG VIAL IVP (05:43)
[2021-10-12 05:45] LABS: Abs Immature Grans 0.03 10^3/uL (0.0-0.06); Absolute Basophil Count 0.09 10^3/uL (0.0-0.2); Absolute Eosinophil Count 0.33 10^3/uL (0.0-0.7); Absolute Lymphocyte Count 1.94 10^3/uL (1.2-3.4); Absolute Monocyte Count 0.78 10^3/uL (0.1-0.8); Absolute Neutrophil Count 7.73 10^3/uL (1.2-6.7); Basophils % 0.8; HCT 46.1 % (36.0-46.0); HGB 15.2 g/dL (11.2-15.7); Immature Grans % 0.3; Lymphocytes % 17.8; MCH 30.3 pg (27.0-33.0); Monocytes % 7.2; Neutrophils % 70.9; Nucleated RBC 0 %; Platelet Count 469 10^3/uL (130-400); RBC 5.01 10^6/uL (3.93-5.22); RDW-SD 44.4 fL
[2021-10-12] MEDS: diphenhydrAMINE 50 MG/ML VIAL IVP (05:45)
[2021-10-12 05:47] LABS: ESR 27 mm/hr (0-20)
[2021-10-12 05:58] LABS: ALT 35 U/L (14-59); AST 21 U/L (15-37); Albumin 3.5 g/dL (3.4-5.0); Alkaline Phosphatase 113 U/L (46-116); Anion Gap 7.2 mmol/L (3-11); BUN 12 mg/dL (7-18); Bilirubin, Total 0.6 mg/dL (0.2-1.0); CO2 29.8 mmol/L (21.0-32.0); CREATININE 0.8 mg/dL (0.55-1.02); Calcium 8.8 mg/dL (8.5-10.1); Chloride 101 mmol/L (98-107); Glucose 125 mg/dL (74-106); Potassium 3.1 mmol/L (3.5-5.1); Sodium 138 mmol/L (136-145)
[2021-10-12 06:07] LABS: C-Reactive Protein 0.75 mg/dL (0.0-0.3)
[2021-10-13 11:39] LABS: C4 Complement 37 mg/dL (13-39)
== END 2021-10-12 07:06 | disposition home or self-care (01) ==
PROVIDERS: Emergency Provider Emergency Medicine; PCP Family Medicine
DX: T78.3XXA Angioneurotic edema, initial encounter (principal)
CPT/HCPCS: 36415; 80053; 85652; 96374; 96375; 99284; 85025; 86140; 86160; 99283; J1200; J2930

== ENCOUNTER 2021-11-21 08:32 | Emergency (ER) | payer BC, SELFPAY ==
[2021-11-21] VITALS (12 sets, daily range): BP systolic 120–165; BP diastolic 75–108; PULSE 68–88; RESP 14–20; TEMP 37; O2SAT 96–98
--- NOTE | 2021-11-21 09:14 | ED.GENADUL_ITS ---
Discharge Plan Disposition Patient Disposition: HOME Condition: Stable Discharge Details Clinical Impression: Vomiting, Acute hypokalemia Primary Care Provider: Prisca Gutierrez ED Provider: Loan Artis Home Meds and New Rx's Prescriptions: New metoclopramide HCl [Reglan] 10 mg tablet 10 mg PO Q6H PRNQty: 10 0RF potassium chloride 20 mEq tablet extended release 20 meq PO DAILY Qty: 10 0RF Continued hydrochlorothiazide 25 mg Tablet 25 mg PO DAILY 0RF amlodipine 10 mg tablet 10 mg PO DAILY 0RF Label Comments: Take 1 tablet by mouth once a day Discharge Instructions Instructions: Hypokalemia (ED) Additional Instructions: Please follow-up with your primary care physician and have your potassium rechecked, get 1 to 2 days of your hydrochlorothiazide Take the potassium as prescribed Clear liquid diet as tolerated followed by bland diet Reglan as needed for nausea and vomiting Please return immediately should you have new or worsening complaints including persistent vomiting, weakness, dizziness Referrals: Prisca Gutierrez MD [Primary Care Provider] - Medical Decision Making Patient appears well She is feeling symptomatically improved and able to tolerate p.o. Her potassium was supplemented and she was discharged with outpatient p.o. potassium. She feels comfortable taking She will get 2 doses of her hydrochlorothiazide and reassess this medication with her PCP She is otherwise stable at time of discharge home and able to tolerate p.o. Given the threshold to return should she have new or worsening complaints home She has a nontender abdominal exam and no indication for CT imaging at the time of my Repeat potassium in 48 hours p.o. recommended HPI General Date/Time Provider Initiated Documentation: 11/21/21 08:47 . HPI Narrative: This 51-year-old female presents with report of nausea, vomiting, abdominal cramping. Denies any fever or diarrhea. No chest pain or shortness of breath. States she feels lightheaded. Denies any weakness. Denies any rashes or lesions. Patient states that she ate possible spoiled food approximately 6 to 7 hours prior to onset of symptoms. She denies any blood in vomitus. Related Data Home Medications Medication Instructions Recorded Confirmed hydrochlorothiazide 25 mg tablet 25 mg PO DAILY 08/28/19 11/21/21 amlodipine 10 mg tablet 10 mg PO DAILY 10/12/21 11/21/21 metoclopramide HCl 10 mg tablet 10 mg PO Q6H PRN #10 tab 11/21/21 (Reglan) potassium chloride 20 mEq 20 meq PO DAILY #10 tab 11/21/21 tablet,extended release Previous Rx's Medication Instructions Recorded metoclopramide HCl 10 mg tablet 10 mg PO Q6H PRN #10 tab 11/21/21 (Reglan) potassium chloride 20 mEq 20 meq PO DAILY #10 tab 11/21/21 tablet,extended release Allergies Allergy/AdvReac Type Severity Reaction Status Date / Time Penicillins Allergy Mild Skin Rash Unverified 11/21/21 08:45 lisinopril AdvReac Unverified 11/21/21 08:45 General Stated Complaint: Nausea/Vomit/Diar PHUONG: 2 Review of Systems All systems reviewed & are unremarkable except as noted in HPI and below PFSH All Active Problems (Updated 11/21/21 @ 11:31 by MIESHA Crain) Vomiting (Acute) Acute hypokalemia (Acute) Abnormal CT scan, colon (Acute) Diarrhea (Acute) Medical History History of cervical dysplasia HTN (hypertension) Impaired fasting glucose Obesity Ovarian cyst Proctitis Sacroiliac joint dysfunction Saphenous vein thrombophlebitis Sciatica Tobacco abuse Surgical History Melanoma Family History Mother Breast cancer Other Asthma Social History Smoking/Tobacco Use Status: Current every day Tobacco Type: cigarettes Smoking risk assessment performed?: Yes Alcohol Intake: current Alcohol Intake frequency: a few times a month Drug use: Never Substance use type: does not use Do you feel safe at home: Yes Do you feel safe in your relationship?: Yes Exam Const General: cooperative, comfortable and no acute distress HENMT Other: Moist mucous membranes Eyes Pupils: PERRL Resp Effort & Inspection: normal respiratory effort Auscultation: clear to auscultation bilaterally Cardio Rate: regular rate Rhythm: regular rhythm GI Inspection: normal to inspection Auscultation: normal bowel sounds Other: Nontender abdominal Skin General skin exam: no rashes or lesions noted Neuro General: patient alert and patient oriented x3 Course Vital Signs Vital signs: Vital Signs Temperature 37 C 11/21/21 08:41 Pulse 88 11/21/21 08:41 Respiratory Rate 16 11/21/21 08:41 Blood Pressure 144/93 H 11/21/21 08:41 Pulse Oximetry 98 11/21/21 08:41 Temperature 37 C 11/21/21 08:41 Temperature Source Skin 11/21/21 08:41 Pulse 88 11/21/21 08:41 Respiratory Rate 16 11/21/21 08:41 Respiratory Effort 11/21/21 08:41 Blood Pressure 144/93 H 11/21/21 08:41 Blood Pressure Position Sitting 11/21/21 08:41 Pulse Oximetry 98 11/21/21 08:41 Oxygen Delivery Method Room Air 11/21/21 08:41 Oxygen Flow Rate 0 11/21/21 08:41 Pain Level 5 11/21/21 08:41 Critical Care Time Critical Care Time Attestation: 40 min secondary to EKG, telemetry monitoring, IV potassium, p.o. potassium administration, fluid resuscitation
[2021-11-21 09:43] LABS: Abs Immature Grans 0.05 10^3/uL (0.0-0.06); Absolute Basophil Count 0.04 10^3/uL (0.0-0.2); Absolute Neutrophil Count 9.63 10^3/uL (1.2-6.7); Basophils % 0.3; Eosinophils % 0.2; HCT 45.9 % (36.0-46.0); HGB 15.4 g/dL (11.2-15.7); Immature Grans % 0.4; Lymphocytes % 15.7; MCH 29.7 pg (27.0-33.0); MCHC 33.6 % (32.0-36.0); MCV 88.6 fL (80-95); MPV 9.3 fL (8.0-11.0); Monocytes % 7.8; Neutrophils % 75.6; Nucleated RBC 0 %; Platelet Count 479 10^3/uL (130-400); RBC 5.18 10^6/uL (3.93-5.22); RDW 12.8 % (11.7-14.6); WBC 12.74 10^3/uL (4.4-10.8)
[2021-11-21 09:45] LABS: Absolute Eosinophil Count 0.03 10^3/uL (0.0-0.7); Absolute Monocyte Count 0.99 10^3/uL (0.1-0.8)
[2021-11-21] MEDS: Ondansetron 4 MG/2 ML VIAL IVP (09:48)
[2021-11-21] MEDS: Lactated Ringers 1,000 ML 1000 ML IV (09:48)
[2021-11-21 09:53] LABS: Bilirubin Negative (Negative); Blood Trace-intact (Negative); Clarity Sl Cloudy (Clear); Glucose Negative (Negative); Ketones Negative (Negative); Leukocyte Esterase Negative (Negative); Nitrite Negative (Negative); Specific Gravity 1.015 (1.005-1.025); Urobilinogen 0.2 EU/dL (Up TO 0.2)
[2021-11-21 09:57] LABS: ALT 20 U/L (14-59); AST 19 U/L (15-37); Albumin 3.8 g/dL (3.4-5.0); Alkaline Phosphatase 100 U/L (46-116); Anion Gap 9.4 mmol/L (3-11); BUN 8 mg/dL (7-18); Bilirubin, Total 0.7 mg/dL (0.2-1.0); CO2 29.6 mmol/L (21.0-32.0); CREATININE 0.7 mg/dL (0.55-1.02); Calcium 9.4 mg/dL (8.5-10.1); Chloride 97 mmol/L (98-107); Glucose 142 mg/dL (74-106); Lipase 118 U/L (73-393); Magnesium 2.2 mg/dL (1.8-2.4); Sodium 136 mmol/L (136-145); Total Protein 8.4 g/dL (6.4-8.2)
[2021-11-21 10:00] LABS: Potassium 2.7 mmol/L (3.5-5.1)
--- NOTE | 2021-11-21 10:00 | RT.EKG_ITS ---
APPROVED REPORT Exam: Resting ECG Reason for Exam: hypokalemia Patient Location: E HR:72 bpm ECG Measurements Heart Rate 72 AXIS [place] 196 P 15 QRSd 88 QRS -13 QT 434 T 1 QTc 476 Conclusion Sinus rhythm...normal P axis, V-rate 60- 99 Low voltage, precordial leads...precordial leads <1.0mV sinus rhythm, left axis, non ischemic
[2021-11-21 10:06] LABS: Bacteria Rare HPF (Negative); C & S Indicated? No; Casts Negative LPF (Negative); Crystals Negative HPF (Negative); Epithelial Cells Moderate HPF (Negative); Mucus Trace (Negative); WBC 0-2 HPF (0-5)
[2021-11-21] MEDS: Potassium Chloride 20 MEQ TABCR 40 MEQ PO (10:27)
[2021-11-21] MEDS: POTASSIUM CHLORIDE/0.9% NACL 1,000 ML 500 MEQ IV (10:28)
[2021-11-21] MEDS: Metoclopramide 10 MG/2 ML VIAL IVP (11:22)
== END 2021-11-21 12:52 | disposition home or self-care (01) ==
PROVIDERS: Emergency Provider Physician Assistant; PCP Family Medicine
DX: R11.10 Vomiting, unspecified (principal); R42 Dizziness and giddiness; E87.6 Hypokalemia
CPT/HCPCS: 36415; 80053; 81025; 83690; 93005; 96361; 96365; 96366; 96375; 99284; 81003; 81015; 83735; 85025; 93010; J2405; J2765

== ENCOUNTER 2021-11-24 12:34 | Outpatient (REF) | payer BC, SELFPAY ==
--- OUTSIDE RECORDS SUMMARY | 2021-11-24 12:36 | XMS_ITS ---
:1970 Author Care Team Providers Name Role Phone MARIBEL RAMIREZ Primary Care Provider [phone] Allergies Code Code System Name Reaction Severity Status Onset Penicillins ? ? Active ? Medications Name Status Start Date Stop Date ? ? amlodipine 10 mg tablet Active ? Not avai lable Take 2 tablets every day by oral route. hydrochlorothiazide 25 mg tablet Active ? Not available Take 1 tablet every day by oral route. nicotine 14 mg/24 hr daily transdermal patch Active ? Not available Apply 1 patch every day by transdermal route. nicotine 21 mg/24 hr daily transdermal patch Active ? Not available Apply 1 patch every day by transdermal route. nicotine 7 mg/24 hr daily transdermal patch Active ? Not available Apply 1 patch every day by transdermal route. Problems Name Status Onset Date Source ? Thrombocytosis Active 03/06/2021 ? 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 Obesity Active 03/06/2021 ? Tobacco User Active 03/06/2021 ? Reactive Depression (Situational) Active 03/06/2021 ? Hypertensive Disorder Active 03/06/2021 ? Superficial Thrombophlebitis Active 03/06/2021 ? Proctitis Active 03/06/2021 ? Psoriasis Active 03/06/2021 ? Snoring Active 03/06/2021 ? Prediabetes Active 03/06/2021 ? History of Dysplasia of Cervix Active 03/06/2021 ? Cyst of Right Ovary Active 03/06/2021 ? Procedures Date Name Performed by ? 10/31/2021 Home Sleep Study Information not avai lable Results Lab Results None recorded. Past Encounters 10/31/2021 Snoring Charlene Motta [employer]: [address] [place] [phone], Ph. Social History Tobacco Smoking Status Current Every Day Smoker Notes: 8 ciggs a day Vaccine List None recorded. Plan of Care Reminders Provider Appointments None ? ? recorded. Lab None ? ? recorded. Referral None ? ? recorded. Procedures None ? ? recorded. Surgeries None ? ? recorded. Imaging None ? ? recorded. Vitals Height Weight BMI 168.91 cm 104.33 kg 36.6 kg/m2
--- OUTSIDE RECORDS SUMMARY | 2021-11-24 12:36 | XMS_ITS | Encounter Summary ---
:1970 Author Care Team Providers Name Role Phone Prisca Gutierrez Primary Care Provider [phone] Reason for Visit Telehealth - Video/Zoom Assessment and Plan 1. Snoring Dean has snoring and nocturia as well as HTN and she may have SENAIT based on these symptoms. She was having fatigue previously when the referral was made but now is feeling better rested and park mccollum feels she sleeps well. Her Ridgeway score is only 1-2/3 because she is not sure of details about her snoring. She has HTN which may be caused or worse marilee by untreated SENAIT. I discussed the pathophysiology of SENAIT and the potential consequences of untreated SENAIT including how it relates to her symptoms and comorbid ities. I ordered a HST and discussed wha t will take place the night of the sleep study. She is made awra that if the study is inconclusive a PSG would be recommended given a HST can miss a mild case of SENAIT. She is not sure at this point if sh e would want to pursue a PSG and will make that decision when/if the time comes. I will see her back to review the results as soon as they are available. ? home sleep study Discussion Note: None recorded.Patient educational handouts: No information available. Plan of Care Reminders Provider Appointments Office 30 01/16/2022 Eddie Motta, 12:30PM [employer] [facility] Lab None ? ? recorded. Referral None ? ? recorded. Procedures None ? ? recorded. Surgeries None ? ? recorded. Imaging Home Sleep 10/31/2021 ? Study Medications Name Start Date ? ? amlodipine 10 mg tablet ? Take 2 tablets every day by oral route. hydrochlorothiazide 25 mg tablet ? Take 1 tablet every day by oral route. nicotine 14 mg/24 hr daily transdermal patch ? Apply 1 patch every day by transdermal route. nicotine 21 mg/24 hr daily transdermal patch ? Apply 1 patch every day by transdermal route. nicotine 7 mg/24 hr daily transdermal patch ? Apply 1 patch every day by transdermal route. Medications Administered None recorded. Vitals Height Weight BMI 5 ft 6.5 in 230 lbs 36.6 kg/m2 Results Lab Results None recorded. Allergies Code Code System Name Reaction Severity Onset Penicillins ? ? ? Problems Name Status Onset Date Source ? [...] Home Sleep Study Information not avai lable Vaccine List None recorded. Social History Tobacco Smoking Status Current Every Day Smoker Notes: 8 ciggs a day What is your level of alcohol None consumption? Live alone or with others? with others Do you or have you ever used N any other forms of tobacco or nicotine? What is your level of caffeine Occasional Notes: 1-2 c coffee a consumption? day no coffee on the weekend Are you currently employed? Y Do you use any illicit or N recreational drugs? Functional Status Unknown. Past Encounters 10/31/2021 Snoring Charlene Motta TOBACCO WETTER: [address] [place] [phone], Ph. History of Present Illness Note: <div>Dean Velázqueznzel has a Zoom consultation at the request of Prisca Gutierrez MD for evaluationof snoring and fatigue. She has given consent to have a telehealth visit. Patient is at home, provider is in the office.</div><div>
</div><div>Dean has a medical history to include adrenal mass, HTN, obesity, prediabetes, psoriasis, depression, superficial thombophlebi tis, and nicotine dependence.</div><div>
</div><div>{{Patient Dean#}} feels {{his her*}} biggest problem with sleep is {{snoring* waking up a lot not feeling rested}}.{{He She*}} typically goes to bed at {{9 8-9#}}pm. It takes {{5 5-10#}} minutes to fall asleep. {{He She*}} wakes up {{1 2 3 1-2#}} times a night to {{unknown reason pain bathroom to urinate#}} and it takes {{ a few#}} minutes to get back to sleep. {{He She*}} gets up at {{5 6* 7 8}}am to start {{his her*}} day. {{He She*}} does not take naps. {{He She*}} has occasional disturbances to {{his her*}} sleep to include having {{TV lights noise children pets*}} in the bedroom at night. {{He She*}} has nev er had a sleep study. {{He She*}} sleeps {{alone with someone*}} in a bed.</div><div>
</div><div>SLEEP QUALITY: Feels quality of sleep most nights is {{good* okay poor}}.</div><div>
</div><div>
</div><div>DAYTIME MARANDA RTNESS: Reports level of alertness most days to be {{alert low energy sleepy very sleepy alert to low energy#}}.</div><div>
</div><div>
</div><div>PSYCH SYMPTOMS: {{Has Has not*}} noted worsening memory {{and or*}} concentration. {{Does have Denies current problems with*}} irritability, depression, {{and or*}} anxiety. {{Has Has not*}} noted difficulty with calculations.</div><div>
</div><div>INSOMNIA SYMPTOMS: {{Does have Does not have*}} an active mind at night when trying to sleep. {{Does have Does not have*}}stressful thoughts interfering with sleep. {{Does Does not*}} watch the clock throughout the night. {{Does Does not*}} worry about getting a good night's sleep. </div><div>
</div><div>BREATHING SYMPTOMS: {{Does have* Does not have}} snoring. {{Does have Does not have*}} witnessed apnea. {{Does have Does not have*}} nocturnal choking/gasping/dyspnea.{{Does have Does not have might be a #}} mouth breathing. {{Does have Does not have*}} nasal congestion at night.</div><div>
</div><div>
</div><div>MOVEMENT SYMPTOMS: {{Does have Does not have*}} tossing & turning. {{Does have Does not have*}} messy sheets in the morning. {{Does have Does not have*}} leg or arm jerks, kicks or twitches in sleep or prior to falling asleep. {{Does Does not*}} have an aching, restless or crawling feeling in legs at night. {{Does Does not*}} have a hard time keeping legs still when trying to sleep. {{Does Does not*}} hav e muscle cramps or Angel horses. {{Does Does not*}} have sleep walking or talking.</div><div>
</div><div>
</div><div>DREAM SYMPTOMS: {{Does have Does not have*}} nightmares often that affect ability to sleep. {{Does have Does not have*}} dreams of suffocating/drowning. {{Does Does not*}} dream shortly after falling asleep. {{Does Does not*}} see dreams in the room even when awake.{{Does Does not*}} see or hear things in the room when falling asleep that aren't really there. {{Does Does not*}} see things in the road when driving that aren't really there. {{Has Has not*}} had someone see then act our their dreams. {{Has Has not*}} accidentally injured themselves while sleeping due to own movements/behaviors.</div><div>
</div><div>CATAPLEXY SYMPTOMS: {{Does have Does not have*}} feel limp, lose strength, or fall asleep when very angry, surprised or laughing. {{Does have Doesnot have*}} leg, arm or face weakness when upset. {{Has Has not*}} had episodes of being unable to move when waking up which is often frightening.</div><div>
</div><div>DRIVING: {{Has Has not*}} fallen asleep or nearly fallen asleep driving. {{Has had Has not had*}} an accident related to drowsy driving or not paying attention. {{Does Does not*}} forget the last few miles or minutes while driving. {{Has Has not*}} driven out of [place] and crossed center line or gone onto shoulder when driving. {{Has Has not*}} had a passenger tell them they look sleepy when driving.&lt ;/div><div>
</div><div>ESS today 11/16</div><div>Ridgeway Questionnaire Score 1- 2/3 (she is not sure how loud or often she snores)</div><div>
</div><div>This visit was performed virtually using synchronous audio-visual connection via Zoom. As such, the physical examination is necessarily limited. The risks and benefits of the useof this alternative platform were discussed with the patient and or guardian and verbal consent was obtained. My assessment and plans are based on such examination. Further evaluation, including in-person examination, may be needed depending on the response to management or today's recommendation. </div><div>
</div><div>The patient has been positively identified and has consented to a video visit.</div>Review of Systems: ROS as noted in the HPI Review of Systems ? Notes: <div>wakes with dry lips, no cturia 1-2/night, </div><div>She denies having any night sweats, nocturnal hear tburn, and morning headaches. </div> Physical Exam ? Notes: <div>N/A</div>
[2021-11-24 16:37] LABS: Anion Gap 9.5 mmol/L (3-11); BUN 13 mg/dL (7-18); CO2 28.5 mmol/L (21.0-32.0); CREATININE 0.8 mg/dL (0.55-1.02); Calcium 9.5 mg/dL (8.5-10.1); Chloride 98 mmol/L (98-107); Glucose 111 mg/dL (74-106); Potassium 3.3 mmol/L (3.5-5.1); Sodium 136 mmol/L (136-145)
== END 2021-11-24 12:35 | disposition home or self-care (01) ==
LOC: NCHCN 12:34
PROVIDERS: PCP Family Medicine; Visit Provider Family Medicine
DX: E87.6 Hypokalemia (principal)
CPT/HCPCS: 80048

== ENCOUNTER 2021-12-06 16:34 | Outpatient (REF) | payer BC, SELFPAY ==
[2021-12-06 14:54] LABS: Anion Gap 7.2 mmol/L (3-11); BUN 14 mg/dL (7-18); CO2 25.8 mmol/L (21.0-32.0); CREATININE 0.7 mg/dL (0.55-1.02); Calcium 9.6 mg/dL (8.5-10.1); Chloride 107 mmol/L (98-107); Glucose 110 mg/dL (74-106); Potassium 4.5 mmol/L (3.5-5.1); Sodium 140 mmol/L (136-145)
[2021-12-06 15:49] LABS: Hemoglobin A1C 6.3 % (<5.7)
[2021-12-07 09:42] LABS: Hepatitis C Ab w Rflx HCV PCR Negative (Negative)
[2021-12-07 09:55] LABS: HIV-1/2 Ag & Ab Screen Negative (Negative)
== END 2021-12-06 16:35 | disposition home or self-care (01) ==
LOC: NCHCN 16:34
PROVIDERS: PCP Family Medicine; Visit Provider Family Medicine
DX: I10 Essential (primary) hypertension (principal); R73.03 Prediabetes; Z00.00 Encounter for general adult medical examination without abnormal findings; Z11.4 Encounter for screening for human immunodeficiency virus [HIV]; Z11.59 Encounter for screening for other viral diseases
CPT/HCPCS: 80048; 86803; 87389; 83036

== ENCOUNTER 2021-12-31 02:47 | Emergency (ER) | payer BC, SELFPAY ==
[2021-12-31] VITALS (53 sets, daily range): BP systolic 121–141; BP diastolic 63–90; PULSE 79–98; RESP 12–27; TEMP 36.2–36.8; O2SAT 89–100
[2021-12-31] MEDS: methylPREDNISolone SUCC 125 MG VIAL IVP (03:07)
[2021-12-31] MEDS: EPINEPHrine 0.3 MG KIT 0.5 MG IM (03:08)
--- NOTE | 2021-12-31 03:09 | ED.GENADUL_ITS ---
Discharge Plan Disposition Patient Disposition: HOME Condition: Good Discharge Details Clinical Impression: Angioedema Primary Care Provider: Prisca Gutierrez ED Provider: Александр Tovar Home Meds and New Rx's Prescriptions: New epinephrine [EpiPen 2-Jose] 0.3 MG/0.3 ML auto-injector 0.3 mg IJ PRN PRNQty: 2 5RF prednisone 50 MG tablet 50 mg PO DAILY Qty: 5 0RF Continued hydrochlorothiazide 25 mg Tablet 25 mg PO DAILY 0RF amlodipine 10 mg tablet 10 mg PO DAILY 0RF Label Comments: Take 1 tablet by mouth once a day metoclopramide HCl [Reglan] 10 mg tablet 10 mg PO Q6H PRNQty: 10 0RF potassium chloride 20 mEq tablet extended release 20 meq PO DAILY Qty: 10 0RF Discharge Instructions Instructions: Angioedema (ED) Additional Instructions: At this time your angioedema has resolved. While I do not think the EpiPen is a solution if this recurs, it may slightly temporize your symptoms until you come into the ER for reassessment. If you have any return of swelling for your tongue, or throat return immediately for reassessment and reevaluation. Please follow-up closely with your primary care provider for allergy and antigen testing. Please take the steroid as directed. You can take 10 mg of loratadine every 24 hours. This is an [id number] medication. If you does not have loratadine you can take 25 mg of Benadryl every 6 hours. Please do this for the next 2 to 3 days. If you notice any worsening of your symptoms, or any new symptoms such as vomiting, diarrhea, fever, chills, shortness of breath, chest pain, numbness, weakness, or fainting , please return immediately to the emergency department for reevaluation. Please follow up with your primary care provider as soon as possible for reassessment and reevaluation. As always, it was a pleasure participating in your medical care today. Referrals: Prisca Gutierrez MD [Primary Care Provider] - Medical Decision Making 51-year-old female with a past medical history of hypertension, not on an MAURICE or an ARB, as well as a past medical history of mild angioedema in the past, presents today for swelling of the tongue and throat and neck. Patient states that this evening at around 8 PM she noticed swelling of her tongue and neck, from 8 PM until now which was 7 hours she has taken 12 tablets of 25 mg Benadryl. In spite of this she has had no improvement of her symptoms. She ate at [employer] for lunch, and had pulled pork for dinner, all of which were not new occurrences. She states that the angioedema that she has had in the past always responded quickly to Benadryl. She denies any other allergies or family history of allergies. She denies ever having throat swelling or neck swelling like this before. She denies any other complaints at this time. No chest pain, no shortness of breath. No vomiting or diarrhea. She does admit to difficulty controlling her swallowing, but denies any fever chills or dental pain. No new medications. Physical exam demonstrate swollen neck, but no stridor. Notably swollen tongue, I am unable to see the posterior oropharynx. Lips are normal. Patient is able to control her secretions though. Diagnosis is certainly concerning for angioedema, in the past she is notably responded to Benadryl, including on her last visit here, however clearly not the case today as she has taken a notable amount of Benadryl at home already. With the lack of response to Benadryl, I do feel that her differential does need to be broadened. Due to the notable nature of her swelling we will prepare for potential intubation, we will give TXA, FFP 2 units, steroids, and 0.5 mg subcutaneous epinephrine. Will monitor closely prepare for potential intubation and reassess. 3:31 AM Patient has been reassessed. She is certainly not worse. Infection does appear slightly improved. Swelling in her neck is improved, and the tongue seems to have diminished in size by about 10 to 15%. Medication has been administered so far is IM epinephrine, steroids, TXA. At this time we willhold off on intubation for the time being, but respiratory therapy is available still at bedside. We will continue to monitor closely and frequently reassess. 4 AM On reassessment patient now appears to have improved by about 20% for her tongue size. She still feels subjectively improved. We will continue to monitor closely. We will hold off on intubation. 4:41 AM Patient's EKG demonstrates normal intervals. Otherwise unremarkable and stable. Even though the patient did have a notable amount of Benadryl over the last few hours, there is no signs of toxic effect of Benadryl. QRS is normal. On reassessment patient is doing much better, she has had a 45% improvement in her symptomatology. We will continue to monitor. 8 AM On reassessment the patient has complete resolution of her angioedema. Her tongue is normal size, lips are normal, neck is normal. Patient feels well and would like to go home. She does not want to be admitted at this time. She has complete resolution of her symptoms. With the total resolution of her sy mptomatology, I do feel this is reasonable, however we have had a long discussion about reasons for which to immediately return. We will give steroids for home use, as well as recommendations for loratadine or Benadryl at home. Will recommend outpatient testing for potential allergy agents. I have extensively reviewed the treatment plan and discharge instructions with the patient. I have addressed all patient concerns at this time. The patient was made aware of what symptoms to monitor for that would warrant a return to the emergency department. Discussed the plan with the patient, they demonstrate verbal understanding and agreement with our assessment and plan at this time. The documentation in this chart was dictated using [employer] dictation software. Please excuse any dictation errors. HPI General Date/Time Provider Initiated Documentation: 12/31/21 02:55 . HPI Narrative: 51-year-old female with a past medical history of hypertension, not on an MAURICE or an ARB, as well as a past medical history of mild angioedema in the past, presents today for swelling of the tongue and throat and neck. Patient states that this evening at around 8 PM she noticed swelling of her tongue and neck, from 8 PM until now which was 7 hours she has taken 12 tablets of 25 mg Benadryl. In spite of this she has had no improvement of her symptoms. She ate at [employer] for lunch, and had pulled pork for dinner, all of which were not new occurrences. She states that the angioedema that she has had in the past always responded quickly to Benadryl. She denies any other allergies or family history of allergies. She denies ever having throat swelling or neck swelling like this before. She denies any other complaints at this time. No chest pain, no shortness of breath. No vomiting or diarrhea. She does admit to difficulty controlling her swallowing, but denies any fever chills or dental pain. No new medications. Related Data Home Medications Medication Instructions Recorded Confirmed hydrochlorothiazide 25 mg tablet 25 mg PO DAILY 08/28/19 11/21/21 amlodipine 10 mg tablet 10 mg PO DAILY 10/12/21 12/31/21 metoclopramide HCl 10 mg tablet 10 mg PO Q6H PRN #10 tab 11/21/21 (Reglan) potassium chloride 20 mEq 20 meq PO DAILY #10 tab 11/21/21 tablet,extended release epinephrine 0.3 mg/0.3 mL 0.3 mg (0.3 mL) IJ PRN PRN #2 ea 12/31/21 injection, auto-injector (EpiPen 2-Jose) prednisone 50 mg tablet 50 mg PO DAILY #5 tab 12/31/21 Previous Rx's Medication Instructions Recorded metoclopramide HCl 10 mg tablet 10 mg PO Q6H PRN #10 tab 11/21/21 (Reglan) potassium chloride 20 mEq 20 meq PO DAILY #10 tab 11/21/21 tablet,extended release epinephrine 0.3 mg/0.3 mL 0.3 mg (0.3 mL) IJ PRN PRN #2 ea 12/31/21 injection, auto-injector (EpiPen 2-Jose) prednisone 50 mg tablet 50 mg PO DAILY #5 tab 12/31/21 Allergies Allergy/AdvReac Type Severity Reaction Status Date / Time Penicillins Allergy Mild Skin Rash Unverified 12/31/21 02:56 lisinopril AdvReac Unverified 12/31/21 02:56 General Stated Complaint: Allergic PHUONG: 2 Review of Systems All systems reviewed & are unremarkable except as noted in HPI and below PFSH All Active Problems (Updated 12/31/21 @ 04:46 by Александр Tovar DO) Angioedema (Acute) Abnormal CT scan, colon (Acute) Diarrhea (Acute) Medical History History of cervical dysplasia HTN (hypertension) Impaired fasting glucose Obesity Ovarian cyst Proctitis Sacroiliac joint dysfunction Saphenous vein thrombophlebitis Sciatica Tobacco abuse Surgical History Melanoma Family History Mother Breast cancer Other Asthma Social History Smoking/Tobacco Use Status: Former Tobacco Use Quit Date: 10/24/21 Smoking risk assessment performed?: Yes Alcohol Intake: current Alcohol Intake frequency: a few times a month Drug use: Never Substance use type: does not use Do you feel safe at home: Yes Do you feel safe in your relationship?: Yes Exam Narrative Exam Narrative: 1.Const: Well-nourished, Well-developed, appearing stated age 2.Eyes: PERRL, no conjunctival injection, and symmetrical lids. 3.ENT: Atraumatic external nose and ears. Moist MM. Neck: Symmetric, neck is enlarged. Notable edema of the neck. Tongue is notably enlarged, lips are normal in size. Patient does have minimal increase in secretions, but she is able to swallow. No stridor. No evidence of periapical abscess or dental infection. 4.CVS: +S1/S2, No murmurs or gallops. Peripheral pulses 2+ and equal in all extremities. Brisk capillary refill in all extremities. 5.RESP: Unlabored respiratory effort. Clear to auscultation bilaterally. No whe ezes rales or rhonchi 6.GI: Soft, Nontender/Nondistended, No hepatosplenomegaly. No guarding or rebound. 7.MSK: Normocephalic/Atraumatic, Extremities w/o deformity or ttp No cyanosis or clubbing, Normal movement of all extremities 8.Skin: Warm, Dry. No rashes or lesions. 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 Sensation grossly intact, no focal neurologic deficits. 10.Psych: (AAO) x3. Appropriate mood and affect Course Vital Signs Vital signs: Vital Signs Temperature 36.8 C 12/31/21 02:51 Pulse 88 12/31/21 02:51 Respiratory Rate 19 12/31/21 02:51 Blood Pressure 133/87 12/31/21 02:51 Temperature 36.8 C 12/31/21 02:51 Pulse 88 12/31/21 02:51 Respiratory Rate 19 12/31/21 02:51 Respiratory Effort Short of Breath 12/31/21 02:57 Respiratory Pattern Normal 12/31/21 02:57 Blood Pressure 133/87 12/31/21 02:51 Pain Level 2 12/31/21 02:51 Critical Care Time Critical Care Time Critical Care Time: Yes Total Critical Care Time: 45 Attestation: Upon my evaluation, this patient had a high probability of imminent or life- threatening deterioration, which required my direct attention, intervention, and personal management. I have personally provided 45 minutes of critical care time exclusive of time spent on separately billable procedures. Time includes review of laboratory data, radiology results, discussion with consultants, and monitoring for potential decompensation. Interventions were performed as documented.
[2021-12-31 03:12] LABS: Abs Immature Grans 0.02 10^3/uL (0.0-0.06); Absolute Basophil Count 0.05 10^3/uL (0.0-0.2); Absolute Eosinophil Count 0.23 10^3/uL (0.0-0.7); Absolute Lymphocyte Count 1.96 10^3/uL (1.2-3.4); Absolute Monocyte Count 1.07 10^3/uL (0.1-0.8); Absolute Neutrophil Count 7.95 10^3/uL (1.2-6.7); Basophils % 0.4; HCT 41.9 % (36.0-46.0); HGB 13.6 g/dL (11.2-15.7); Immature Grans % 0.2; Lymphocytes % 17.4; MCH 29.9 pg (27.0-33.0); MCHC 32.5 % (32.0-36.0); MCV 92.1 fL (80-95); MPV 9.4 fL (8.0-11.0); Monocytes % 9.5; Neutrophils % 70.5; Nucleated RBC 0 %; Platelet Count 428 10^3/uL (130-400); RBC 4.55 10^6/uL (3.93-5.22); RDW 12.2 % (11.7-14.6); RDW-SD 41.7 fL; WBC 11.28 10^3/uL (4.4-10.8)
[2021-12-31] MEDS: Normal Saline 100 ML (03:26)
[2021-12-31 03:29] LABS: ALT 25 U/L (14-59); AST 15 U/L (15-37); Albumin 3.5 g/dL (3.4-5.0); Alkaline Phosphatase 113 U/L (46-116); Anion Gap 6.7 mmol/L (3-11); BUN 14 mg/dL (7-18); Bilirubin, Total 0.4 mg/dL (0.2-1.0); CO2 26.3 mmol/L (21.0-32.0); CREATININE 0.8 mg/dL (0.55-1.02); Chloride 104 mmol/L (98-107); Glucose 126 mg/dL (74-106); Potassium 4.3 mmol/L (3.5-5.1); Sodium 137 mmol/L (136-145); Total Protein 7.5 g/dL (6.4-8.2)
--- NOTE | 2021-12-31 03:45 | RT.EKG_ITS ---
APPROVED REPORT Exam: Resting ECG Reason for Exam: benadryl use Patient Location: E HR:89 bpm ECG Measurements Heart Rate 89 AXIS DE 209 P 33 QRSd 86 QRS -10 QT 392 T 0 QTc 478 Conclusion Sinus rhythm...normal P axis, V-rate 60- 99 Borderline prolonged DE interval...DE >202, V-rate 50- 90 Low voltage, precordial leads...precordial leads <1.0mV Consider anterior infarct...Q >30mS in V2-V5 Physician: inverted t wve in lead 3v unchanged, intervals unremarkable
--- NOTE | 2021-12-31 03:48 | NUR.NOTE ---
Nursing Note: 1st unit FFP initiated; [id number]; unit verified by this RN and Lenka Wyatt Consent obtained from pt
[2021-12-31 03:55] LABS: PTT Activated 25.7 sec (21.0-27.5); Prothrombin Time 10.1 sec (9.3-11.0)
--- NOTE | 2021-12-31 07:44 | RESPIRATORY ---
therapist assist 0300. Pt stable awake, and alert on room air (99%.)
[2021-12-31] MEDS: EPINEPHrine 0.3 MG KIT IM (08:13)
== END 2021-12-31 08:35 | disposition home or self-care (01) ==
PROVIDERS: Emergency Provider Student in an Organized Health Care Education/Training Program; PCP Family Medicine
DX: T78.3XXA Angioneurotic edema, initial encounter (principal)
CPT/HCPCS: 80053; 86850; 86900; 86901; 93005; 96365; 96366; 96372; 96375; 99291; 85025; 85610; 85730; 93010; J0171; J2930; P9059

== ENCOUNTER → 2022-02-16 00:33 | Outpatient (CLI) | payer BC, SELFPAY ==
--- OUTSIDE RECORDS SUMMARY | 2022-02-16 00:35 | XMS_ITS ---
:1970 Author Care Team Providers Name Role Phone MARIBEL RAMIREZ Primary Care Provider [phone] Allergies Code Code System Name Reaction Severity [...] recorded. Past Encounters 10/31/2021 Snoring Charlene Motta [employer] SU[employer] SPECIALIST: [address] [place] [phone], Ph. Social History Tobacco Smoking Status Current Every Day Smoker Notes: 8 c iggs a day Vaccine List None recorded. Plan of Care Reminders Provider Appointments None recorded. ? ? Lab None recorded. ? ? Referral None recorded. ? ? Procedures None recorded. ? ? Surgeries None recorded. ? ? Imaging None recorded. ? ? Vitals Height Weight BMI 168.91 cm 104.33 kg 36.6 kg/m2
--- NOTE | 2022-02-16 15:33 | DI.MAMMO_ITS ---
Exam(s) MAMMO SCREENING EXAM: MAMMO SCREENING CLINICAL HISTORY: SCREENING, Z12.31, FAMILY H/O BREAST CA, Z80.3 TECHNIQUE: Mammograms were interpreted according to the usual protocol including computer analysis w [employer] CAD system, tomosynthesis and C-view imaging. COMPARISON: 2016 through 2020 FINDINGS: The breasts are composed of scattered fibroglandular densities, Breast Density category B. No suspicious masses or suspicious microcalcifications are seen. No skin thickening or abnormal axillary lymph nodes are seen. There has been no significant change from prior exams. IMPRESSION: BI-RADS Category 1, Negative mammogram Yearly screening mammography is recommended. Breast Density - Category B, scattered fibroglandular densities. A negative radiographic report should not delay biopsy if a dominant or clinically suspicious mass is present. Up to ten percent of cancers are not identified on mammography. A negative report may reinforce clinical impression. Adenosis and dense breasts may obscure an underlying neoplasm. False positive reports average 6 to 10%. Patient will receive a letter notifying them of these results.
== END ==
PROVIDERS: PCP Family Medicine; Visit Provider Family Medicine
DX: Z12.31 Encounter for screening mammogram for malignant neoplasm of breast (principal); Z80.3 Family history of malignant neoplasm of breast
CPT/HCPCS: 77063; 77067

== ENCOUNTER 2022-11-26 07:42 | Emergency (ER) | payer BC, SELFPAY ==
[2022-11-26 07:51] VITALS: BP 143/80; PULSE 81; RESP 18; TEMP 36.7; O2SAT 99
--- NOTE | 2022-11-26 08:03 | ED.GENADUL_ITS ---
Discharge Plan Disposition Patient Disposition: Home Discharge Details Clinical Impression: Calcific tendinitis of right shoulder region Primary Care Provider: Prisca Gutierrez ED Provider: Jose Araujo Home Meds and New Rx's Prescriptions: New prednisone 50 mg tablet 50 mg PO DAILY Qty: 5 0RF Continued hydrochlorothiazide 25 mg Tablet 25 mg PO DAILY amlodipine 10 mg tablet 10 mg PO DAILY Patient Comments: Take 1 tablet by mouth once a day metoclopramide HCl [Reglan] 10 mg tablet 10 mg PO Q6H PRNQty: 10 0RF potassium chloride 20 mEq tablet extended release 20 meq PO DAILY Qty: 10 0RF epinephrine [EpiPen 2-Jose] 0.3 MG/0.3 ML auto-injector 0.3 mg IJ PRN PRNQty: 2 5RF prednisone 50 MG tablet 50 mg PO DAILY Qty: 5 0RF Discharge Instructions Instructions: Tendinitis (ED) Additional Instructions: Please read all of the information that accompanies these instructions. You were seen in the emergency department for your sore shoulder. You are diagnosed with adhesive capsulitis which is inflammation in your shoulder. Please use the stretching activities we discussed. Please schedule an appointment with your primary care provider later this week. Please return to the emergency department if if you cannot move your right hand or if you develop any fevers. Please take these steroids as directed. For your pain please take medications as follows: 1. Take acetaminophen (Tylenol), 1,000 mg (two 500 mg tabs) every 6 hours Discharge Data Discharge Date/Time-TO BE ENTERED AT DEPARTURE: 11/26/22 09:20 Medical Decision Making This is an overall very well-appearing normothermic and not tachycardic [id number] 52-year-old female with atraumatic left shoulder pain for the past 3 days. On exam she does not have signs of dislocation. Based on her lack of history of malignancy my suspicion is low for pathological fracture. No pain out of proportion to suggest necrotizing soft tissue infection. Hand is warm and well-perfused so I am not concerned for vascular injury. No skin baldwin ges to suggest cellulitis. No fluctuance to suggest abscess. It is certainly possible that the patient has ligamentous or muscular damage along her biceps. Adhesive capsulitis is most likely possibility. We will also treat with oral steroids if x-ray is unremarkable. I am not concerned for thoracic outlet syndrome given lack of known cervical rib. No history of malignancy to suggest Pancoast tumor. No chest pain suggest ACS. No cough or shortness of breath to suggest pneumonia. No warmth of shoulder to suggest septic joint. 9:05 AM Radiograph showed calcific tendinosis for which I will provide the patient with short course of oral steroids and outpatient PMD follow-up. I instructed her on pendulum stretches and avoiding immobilization. Health deputy united states marshal Yudelka will help to arrange outpatient PCP follow-up later this week and physical therapy referral. I have given patient return indications including any numbness in her right hand and any tumors or worsening pain. I sent her with a short course of oral steroids. HPI General Date/Time Provider Initiated Documentation: 11/26/22 08:03 . HPI Narrative: This is a [id number] 52-year-old female with a history of hypertension arriving to the emergency department in the setting of pain in her right shoulder and bicep for the past 3 days. 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 She says that she was picking up skis on Saturday. Saturday evening she noticed that she had pain in her right shoulder overlying her deltoid. She has been taking acetaminophen and she last took this at approximately 5 AM. She reports that she has never had any surgeries in the past to this right shoulder. She said that she has had to sleep in a recliner as she has had worsening pain at night. She denies any numbness or tingling in her hand on the right. She denies any fevers chest pain or shortness of breath. Related Data Home Medications Medication Instructions Recorded Confirmed hydrochlorothiazide 25 mg tablet 25 mg PO DAILY 08/28/19 11/21/21 amlodipine 10 mg tablet 10 mg PO DAILY 10/12/21 11/26/22 metoclopramide HCl 10 mg tablet 10 mg PO Q6H PRN #10 tabs 11/21/21 (Reglan) potassium chloride 20 mEq 20 meq PO DAILY #10 tabs 11/21/21 tablet,extended release epinephrine 0.3 mg/0.3 mL 0.3 mg (0.3 mL) IJ PRN PRN #2 ea 12/31/21 11/26/22 injection, auto-injector (EpiPen 2-Jose) prednisone 50 mg tablet 50 mg PO DAILY #5 tabs 12/31/21 prednisone 50 mg tablet 50 mg PO DAILY #5 tabs 11/26/22 Previous Rx's Medication Instructions Recorded metoclopramide HCl 10 mg tablet 10 mg PO Q6H PRN #10 tabs 11/21/21 (Reglan) potassium chloride 20 mEq 20 meq PO DAILY #10 tabs 11/21/21 tablet,extended release epinephrine 0.3 mg/0.3 mL 0.3 mg (0.3 mL) IJ PRN PRN #2 ea 12/31/21 injection, auto-injector (EpiPen 2-Jose) prednisone 50 mg tablet 50 mg PO DAILY #5 tabs 12/31/21 prednisone 50 mg tablet 50 mg PO DAILY #5 tabs 11/26/22 Allergies Allergy/AdvReac Type Severity Reaction Status Date / Time Penicillins Allergy Mild Skin Rash Unverified 11/26/22 07:53 lisinopril AdvReac Unverified 11/26/22 07:53 General Stated Complaint: Orthopedic PHUONG: 4 PFSH All Active Problems (Updated 11/26/22 @ 09:10 by Jose Araujo MD) Calcific tendinitis of right shoulder region (Acute) Abnormal CT scan, colon (Acute) Diarrhea (Acute) Medical History History of cervical dysplasia HTN (hypertension) Impaired fasting glucose Obesity Ovarian cyst Proctitis Sacroiliac joint dysfunction Saphenous vein thrombophlebitis Sciatica Tobacco abuse Surgical History Melanoma Family History Mother Breast cancer Other Asthma Social History Smoking/Tobacco Use Status: Former Tobacco Use Quit Date: 10/24/21 Smoking risk assessment performed?: Yes Alcohol Intake: current Alcohol Intake frequency: a few times a month Drug use: Never Substance use type: does not use Do you feel safe at home: Yes Do you feel safe in your relationship?: Yes Exam Narrative Exam Narrative: General: Well-appearing in no acute distress speaking in complete sentences. Head: Normocephalic, atraumatic Ear, nose, mouth, throat: Grossly normal inspection. Normal voice, handling secretions normally. Neck: Trachea midline. Cardiovascular: Well-perfused distal extremities. Respiratory: Nonlabored respiration. Gastrointestinal: Nondistended abdomen. Musculoskeletal: Right upper extremity held in full abduction at the shoulder. Patient is only able to abduct her right shoulder approximately 5 degrees. She can flex her right shoulder approximately 10 degrees. She can extend her right shoulder approximately 5 degrees. No limitations in range of motion in right elbow. Full range of motion on pronation and supination of the right forearm. Right hand warm and well-perfused with 2+ right radial pulse. Cap refill less than 2 seconds in the right hand. Sensation motor function intact in the right hand across the radial, median, and ulnar nerves. No erythema warmth to entire right arm. Patient has tenderness primarily over the lateral aspect of her distal deltoid. Skin: Normal for age and race, grossly normal temperature and turgor. No acute rash. Neurologic: Alert and appropriate, no apparent acute deficits. Psychiatric: Mood and manner are appropriate. Grooming and personal hygiene are appropriate. Course Vital Signs Vital signs: Vital Signs Temperature 36.7 C 11/26/22 07:51 Pulse 81 11/26/22 07:51 Respiratory Rate 18 11/26/22 07:51 Blood Pressure 143/80 H 11/26/22 07:51 Pulse Oximetry 99 11/26/22 07:51 Temperature 36.7 C 11/26/22 07:51 Temperature Source Oral 11/26/22 07:51 Pulse 81 11/26/22 07:51 Respiratory Rate 18 11/26/22 07:51 Respiratory Effort Normal, Non-Labored 11/26/22 07:52 Blood Pressure 143/80 H 11/26/22 07:51 Pulse Oximetry 99 11/26/22 07:51 Oxygen Delivery Method Room Air 11/26/22 07:51 Oxygen Flow Rate 0 11/26/22 07:51 POCUS Exam (ED) Limited Soft Tissue Exam DATE OF EXAM: 11/26/22 TIME OF EXAM: 08:51 IS THIS A REPEAT EXAM DURING THIS ENCOUNTER: No LOCATION OF EXAM: Upper extremity/right REASON FOR EXAM: Pain Exam Complete DIFFERENTIAL DIAGNOSES: No signs of cobblestoning nor abscess. PAWSS Have you Been Recently Intoxicated or Drunk Within the Last 30 days?: No Have you Ever Experienced Previous Episodes of Alcohol Withdrawal?: No Have you ever Experienced Withdrawal Seizures?: No Have you ever Experienced Delirium Tremens(DT)s?: No Have you ever undergone Alcohol Rehabilitation Treatment (i.e, inpt ot outpatient treatment programs)?: No Have you ever Experienced Blackouts?: No Have you ever Combined Alcohol with other Downers within the last 90 days?: No Have you ever Combined Alcohol with any other Substance of Abuse during the last 90 days?: No Positive Blood Alcohol level on Presentation? [PCS.BAL]: No Evidence of Increased Autonomic Activity (i.e. HR>120, tremor, sweating, agitation, nausea)?: No Result: 0
[2022-11-26] MEDS: diazePAM 5 MG TAB PO (08:24)
--- NOTE | 2022-11-26 08:45 | DI.RAD_ITS ---
Exam(s) XR SHOULDER RT COMPLETE 2+V EXAM: XR SHOULDER RT COMPLETE 2+V CLINICAL HISTORY: Right shoulder pain. TECHNIQUE: 2D digital imaging was performed. Five views. COMPARISON: CR CHEST 2 VIEWS PA,LAT from 12/29/2012 FINDINGS: BONES: No acute fracture is present. No bony destructive lesion is seen. JOINTS: No dislocation present. AC joint not widened. There is mild spurring at the AC joint. Dege nerative changes at the glenoid. SOFT TISSUE: Calcifications adjacent to the humeral head consistent with calcific tendinosis. IMPRESSION: Degenerative changes and calcific tendinosis. No acute abnormality. DATA REPOSITORY: RADIATION DOSE DELIVERED:
--- NOTE | 2022-11-26 09:15 | NUR.NOTE ---
Nursing Note: Referral faxed to PCP for right shoulder pain, adhesive capsulitis, PT, reassessment/ later this week.
[2022-11-26] MEDS: predniSONE 20 MG TAB 60 MG PO (09:18)
[2022-11-26 09:19] VITALS: BP 118/74; PULSE 71; RESP 18; O2SAT 97
== END 2022-11-26 09:20 | disposition home or self-care (01) ==
PROVIDERS: Emergency Provider Emergency Medicine; PCP Family Medicine
DX: M75.31 Calcific tendinitis of right shoulder (principal)
CPT/HCPCS: 76882; 99283; 99284; 73030; J7512

== ENCOUNTER 2022-11-30 15:38 | Emergency (ER) | payer BC, SELFPAY ==
[2022-11-30] VITALS (15 sets, daily range): BP systolic 161–180; BP diastolic 92–97; PULSE 73–87; RESP 13–27; TEMP 36.8; O2SAT 96
--- NOTE | 2022-11-30 15:53 | ED.GENADUL_ITS ---
Discharge Plan Disposition Patient Disposition: Home Discharge Details Clinical Impression: Nausea & vomiting Primary Care Provider: Prisca Gutierrez ED Provider: Deepa Balderrama Home Meds and New Rx's Prescriptions: New ondansetron 4 mg tablet,disintegrating 4 mg PO Q6H PRNQty: 10 0RF Continued hydrochlorothiazide 25 mg Tablet 25 mg PO DAILY Patient Comments: Pt Stated not taking this med amlodipine 10 mg tablet 10 mg PO DAILY metoclopramide HCl [Reglan] 10 mg tablet 10 mg PO Q6H PRNQty: 10 0RF Patient Comments: Pt Stated not taking this med potassium chloride 20 mEq tablet extended release 20 meq PO DAILY Qty: 10 0RF Patient Comments: Pt Stated not taking this med epinephrine [EpiPen 2-Jose] 0.3 MG/0.3 ML auto-injector 0.3 mg IJ PRN PRNQty: 2 5RF prednisone 50 MG tablet 50 mg PO DAILY Qty: 5 0RF cyclobenzaprine 10 mg Tablet 10 mg PO TID PRN Patient Comments: Pt Stated not taking this med cetirizine 10 mg Tablet 10 mg PO QDAY prednisone 50 mg tablet 50 mg PO DAILY Qty: 5 0RF Discharge Instructions Instructions: Acute Nausea and Vomiting (ED) Additional Instructions: Advance diet slowly starting with clear liquids push fluids to drink 6 to 8 glasses of water daily to stay well-hydrated Take medications as prescribed Return for worsening symptoms fever or concerns unable to take oral Your labs showed no evidence of low potassium or magnesium and no kidney injury or significant dehydration. You have been given 1 L of normal saline and should continue symptom management as needed Referrals: Prisca Gutierrez MD [Primary Care Provider] - (As needed) Medical Decision Making Patient with nausea vomiting and diarrhea since yesterday suspect viral gastroenteritis. Will establish IV give 1 L of normal saline and 4 mg of Zofran for symptom management send routine labs to evaluate kidney function and electrolytes anticipate hypokalemia hypomagnesemia. We send stool for culture. Abdominal exam is benign doubt any acute perforation diverticulitis bowel obstruction. Will hold off on imaging at this time. Labs are reviewed and no dehydration hypokalemia or hypomagnesemia evident. Physical exam remains benign vital signs stable. She is unable to produce stool. She reports her symptoms have improved since receiving the liter of fluid and the IV Zofran and she is ready for discharge to home. I have reexamined her abdomen and it is soft she reports tenderness generalized on p alpation that she reports as muscular and attributes it to retching. She has no guarding no rebound no masses and remains soft She will be discharged to home with no services with prescription for on dansetron for home use if ongoing nausea and vomiting. Lab Data Lab results reviewed: Yes I reviewed the patient's lab results. Lab results narrative: Laboratory Results - last 24 hr 11/30/22 11/30/22 11/30/22 15:50 16:15 16:15 WBC 7.97 RBC 4.88 Hgb 14.4 Hct 42.5 MCV 87 MCH 29.5 MCHC 33.9 RDW 13.2 Plt Count 464 H MPV 9.1 Immature Gran % 0.3 Neutrophils % 86.9 Lymphocytes % 8.2 Monocytes % 4.4 Eosinophils % 0.1 Basophils % 0.1 Nucleated RBC % 0.0 Absolute Neutrophils 6.93 H Absolute Lymphocytes 0.65 L Absolute Monocytes 0.35 Absolute Eosinophils 0.01 Absolute Basophils 0.01 Sodium 137 Potassium 3.5 Chloride 98 Carbon Dioxide 27.4 Anion Gap 11.6 H BUN 13 Creatinine 0.9 Est GFR (CKD-EPI 2020) 77.40 Glucose 156 H Calcium 9.5 Magnesium 2.2 Total Bilirubin 0.7 AST 16 ALT 32 Alkaline Phosphatase 100 Total Protein 8.4 H Albumin 3.8 COVID-19 Source Nasopharynx SARS-CoV-2 (PCR) Negative Influenza Type A (PCR) Negative Influenza Type B (PCR) Negative RSV (PCR) Negative HPI General Date/Time Provider Initiated Documentation: 11/30/22 15:39 . Limitations to Documentation: no limitations . Information obtained by: patient . HPI Narrative: This is a 52-year-old female patient who states she was in her usual state of health until yesterday when she developed nausea vomiting and diarrhea air. She reports generalized abdominal discomfort but no specific abdominal pain. She reports that she has retched at least 10 times. She states that she has had a similar history in the past which she states was reported to hypokalemia. She has no documented fever. She states that she has had close contact with recent sick people but unable to tell me what their illness was. She denies any bloody vomit or stool. She states she has been unable to keep any oral fluids down Related Data Home Medications Medication Instructions Recorded Confirmed hydrochlorothiazide 25 mg tablet 25 mg PO DAILY 08/28/19 11/21/21 amlodipine 10 mg tablet 10 mg PO DAILY 10/12/21 11/30/22 metoclopramide HCl 10 mg tablet 10 mg PO Q6H PRN #10 tabs 11/21/21 (Reglan) potassium chloride 20 mEq 20 meq PO DAILY #10 tabs 11/21/21 tablet,extended release epinephrine 0.3 mg/0.3 mL 0.3 mg (0.3 mL) IJ PRN PRN #2 ea 12/31/21 11/30/22 injection, auto-injector (EpiPen 2-Jose) prednisone 50 mg tablet 50 mg PO DAILY #5 tabs 12/31/21 11/30/22 prednisone 50 mg tablet 50 mg PO DAILY #5 tabs 11/26/22 11/30/22 cetirizine 10 mg tablet 10 mg PO QDAY 11/30/22 11/30/22 cyclobenzaprine 10 mg tablet 10 mg PO TID PRN 11/30/22 ondansetron 4 mg disintegrating 4 mg PO Q6H PRN #10 tabs 11/30/22 tablet Previous Rx's Medication Instructions Recorded metoclopramide HCl 10 mg tablet 10 mg PO Q6H PRN #10 tabs 11/21/21 (Reglan) potassium chloride 20 mEq 20 meq PO DAILY #10 tabs 11/21/21 tablet,extended release epinephrine 0.3 mg/0.3 mL 0.3 mg (0.3 mL) IJ PRN PRN #2 ea 12/31/21 injection, auto-injector (EpiPen 2-Jose) prednisone 50 mg tablet 50 mg PO DAILY #5 tabs 12/31/21 prednisone 50 mg tablet 50 mg PO DAILY #5 tabs 11/26/22 ondansetron 4 mg disintegrating 4 mg PO Q6H PRN #10 tabs 11/30/22 tablet Allergies Allergy/AdvReac Type Severity Reaction Status Date / Time Penicillins Allergy Mild Skin Rash Unverified 11/30/22 16:41 lisinopril AdvReac Unverified 11/30/22 16:41 General Stated Complaint: Nausea/Vomit/Diar PHUONG: 3 Review of Systems All systems reviewed & are unremarkable except as noted in HPI and below Constitutional Constitutional: Denies fever(s), Denies headache(s) and Reports malaise Eyes Eyes: Denies other visual disturbances ENT Ears, Nose, Mouth, and Throat: Denies vertigo, Denies headache(s) and Denies odynophagia Cardiovascular Cardiovascular: Denies chest pain, Denies edema and Denies dyspnea Respiratory Respiratory: Denies cough and Denies dyspnea Gastrointestinal Gastrointestinal: Reports abdominal pain, Denies hematochezia, Denies coffee ground emesis, Reports diarrhea, Reports nausea, Denies odynophagia, Reports vomiting and Denies hematemesis Genitourinary Genitourinary: Denies dysuria, Denies urinary hesitancy and Denies urinary urgency Musculoskeletal Musculoskeletal: Denies back pain and Reports myalgias Neurologic Neurologic: Denies confusion, Denies vertigo and Denies headache(s) Psychiatric Psychiatric: Denies confusion PFSH All Active Problems (Updated 11/30/22 @ 17:33 by Deepa Balderrama NP) Calcific tendinitis of right shoulder region (Acute) Nausea & vomiting (Acute) Abnormal CT scan, colon (Acute) Diarrhea (Acute) Medical History History of cervical dysplasia HTN (hypertension) Impaired fasting glucose Obesity Ovarian cyst Proctitis Sacroiliac joint dysfunction Saphenous vein thrombophlebitis Sciatica Tobacco abuse Surgical History Melanoma Family History Mother Breast cancer Other Asthma Social History Smoking/Tobacco Use Status: Former Tobacco Use Quit Date: 10/24/21 Smoking risk assessment performed?: Yes Alcohol Intake: current Alcohol Intake frequency: a few times a month Drug use: Never Substance use type: does not use Do you feel safe at home: Yes Do you feel safe in your relationship?: Yes Exam Const General: cooperative, no acute distress and ill appearing (mildly) acutely Nutritional Appearance: overweight HENMT Head: normal to inspection Neck Neck: full ROM Chest Chest: normal inspection of the chest Resp Effort & Inspection: normal respiratory effort Cardio Rate: regular rate Rhythm: regular rhythm GI Inspection: normal to inspection Palpation: soft, not firm, no guarding and no masses Skin General skin exam: no rashes or lesions noted Neuro General: patient alert, patient awake and patient oriented x3 Extrem General: normal to inspection, full ROM and no pedal edema Course Vital Signs Vital signs: Vital Signs Temperature 36.8 C 11/30/22 15:42 Pulse 87 11/30/22 15:42 Respiratory Rate 20 11/30/22 15:42 Blood Pressure 161/94 H 11/30/22 15:42 Pulse Oximetry 96 11/30/22 15:42 Temperature 36.8 C 11/30/22 15:42 Pulse 87 11/30/22 15:42 Respiratory Rate 20 11/30/22 15:42 Blood Pressure 161/94 H 11/30/22 15:42 Blood Pressure Position Sitting 11/30/22 15:42 Pulse Oximetry 96 11/30/22 15:42 Oxygen Delivery Method Room Air 11/30/22 15:42 Oxygen Flow Rate 0 11/30/22 15:42 Pain Level 8 11/30/22 15:42
--- NOTE | 2022-11-30 16:00 | RT.EKG_ITS ---
APPROVED REPORT Exam: Resting ECG Reason for Exam: Abdominal pain Patient Location: E HR:76 bpm ECG Measurements Heart Rate 76 AXIS LA 190 P 26 QRSd 86 QRS -8 QT 409 T 7 QTc 461 Conclusion Sinus rhythm...normal P axis, V-rate 60- 99 Inferior infarct, old...Q >35mS, II III aVF
[2022-11-30] MEDS: Normal Saline 1,000 ML 1000 ML IV (16:15)
[2022-11-30] MEDS: Ondansetron 4 MG/2 ML VIAL IVP (16:20)
[2022-11-30 16:27] LABS: Abs Immature Grans 0.02 10^3/uL (0.0-0.06); Absolute Basophil Count 0.01 10^3/uL (0.0-0.2); Absolute Eosinophil Count 0.01 10^3/uL (0.0-0.7); Absolute Lymphocyte Count 0.65 10^3/uL (1.2-3.4); Absolute Monocyte Count 0.35 10^3/uL (0.1-0.8); Absolute Neutrophil Count 6.93 10^3/uL (1.2-6.7); Basophils % 0.1; Eosinophils % 0.1; HCT 42.5 % (36.0-46.0); HGB 14.4 g/dL (11.2-15.7); Immature Grans % 0.3; Lymphocytes % 8.2; MCH 29.5 pg (27.0-33.0); MCHC 33.9 % (32.0-36.0); MCV 87 fL (80-95); MPV 9.1 fL (8.0-11.0); Monocytes % 4.4; Neutrophils % 86.9; Platelet Count 464 10^3/uL (130-400); RBC 4.88 10^6/uL (3.93-5.22); RDW 13.2 % (11.7-14.6); RDW-SD 42.3 fL; WBC 7.97 10^3/uL (4.4-10.8)
[2022-11-30 16:36] LABS: ALT 32 U/L (14-59); AST 16 U/L (15-37); Albumin 3.8 g/dL (3.4-5.0); Alkaline Phosphatase 100 U/L (46-116); Anion Gap 11.6 mmol/L (3-11); BUN 13 mg/dL (7-18); Bilirubin, Total 0.7 mg/dL (0.2-1.0); CO2 27.4 mmol/L (21.0-32.0); CREATININE 0.9 mg/dL (0.55-1.02); Calcium 9.5 mg/dL (8.5-10.1); Chloride 98 mmol/L (98-107); Glucose 156 mg/dL (74-106); Magnesium 2.2 mg/dL (1.8-2.4); Potassium 3.5 mmol/L (3.5-5.1); Sodium 137 mmol/L (136-145); Total Protein 8.4 g/dL (6.4-8.2)
[2022-11-30 16:57] LABS: COVID-19 PCR Negative (Negative); Influenza A PCR Negative (Negative); Influenza B PCR Negative (Negative); RSV PCR Negative (Negative)
[2022-11-30 17:00] LABS: Source Nasopharynx
[2022-11-30] MEDS: Ketorolac 30 MG/ML VIAL IVP (17:07)
[2022-11-30 17:36] LABS: Magnesium 2.2 mg/dL (1.8-2.4)
== END 2022-11-30 17:54 | disposition home or self-care (01) ==
PROVIDERS: Emergency Provider Nurse Practitioner Acute Care; PCP Family Medicine
DX: R11.2 Nausea with vomiting, unspecified; R19.7 Diarrhea, unspecified; R10.9 Unspecified abdominal pain; Z20.822 Contact with and (suspected) exposure to COVID-19
CPT/HCPCS: 36415; 80053; 87637; 93005; 96361; 96374; 96375; 99284; 83735; 85025; 93010; J1885; J2405

== ENCOUNTER 2022-12-21 11:39 | Outpatient (REF) | payer BC, SELFPAY ==
--- NOTE | 2022-12-21 08:55 | PAPFT_PTH ---
PATIENT: Dean Conn LOC: [facility]#:[id number] AGE/SX: 52/F ROOM: RE12/21/[address]: Prisca Gutierrez : 1970 BED: DIS: 12/21/2022 SPEC #: [id number] RECD: 12/23/22 07:39 STATUS: DONALD REAlexandra #: [id number] SWAPNIL: 12/21/22 08:[address]: Prisca Gutierrez DEPT: [facility] Cytology RECD BY: Barbara Lamas Tissues: 1 - CX/ENDOCX FOR PAP SMEARS Procedures: PAP THIN PREP/UVM Screening HPV DNA PROBE Comments: [id number]
[2022-12-21 18:53] LABS: TSH (W/Ref FT4) 1.44 uIU/mL (0.36-3.74)
[2022-12-21 18:54] LABS: Hemoglobin A1C 6.3 % (<5.7)
== END 2022-12-21 11:40 | disposition home or self-care (01) ==
LOC: NCHCN 11:39
PROVIDERS: PCP Family Medicine; Visit Provider Family Medicine
DX: R73.03 Prediabetes (principal); E66.9 Obesity, unspecified; Z12.4 Encounter for screening for malignant neoplasm of cervix; I10 Essential (primary) hypertension; Z11.51 Encounter for screening for human papillomavirus (HPV)
CPT/HCPCS: 88142; 83036; 84443; 87624

== ENCOUNTER 2023-03-25 01:25 | Outpatient (CLI) | payer BC, SELFPAY ==
--- NOTE | 2023-03-25 | DI.MAMMO_ITS ---
Exam(s) MAMMO SCREENING EXAM: MAMMO SCREENING CLINICAL HISTORY: SCREENING, Z12.31, FAMILY HX BREAST CANCER, Z80.3 TECHNIQUE: Mammograms were interpreted according to the usual protocol including computer analysis w [employer] CAD system, tomosynthesis and C-view imaging. COMPARISON: 2016 through 2021 FINDINGS: The breasts are composed of scattered fibroglandular densities, Breast Density category B. No suspicious masses or suspicious microcalcifications are seen. No skin thickening or abnormal axillary lymph nodes are seen. There has been no significant change from prior exams. IMPRESSION: BI-RADS Category 1, Negative mammogram Yearly screening mammography is recommended. Breast Density - Category B, scattered fibroglandular densities. A negative radiographic report should not delay biopsy if a dominant or clinically suspicious mass is present. Up to ten percent of cancers are not identified on mammography. A negative report may reinforce clinical impression. Adenosis and dense breasts may obscure an underlying neoplasm. False positive reports average 6 to 10%. Patient will receive a letter notifying them of these results.
== END 2023-03-25 01:45 ==
LOC: DI 01:25
PROVIDERS: PCP Family Medicine; Visit Provider Family Medicine
DX: Z12.31 Encounter for screening mammogram for malignant neoplasm of breast (principal); Z80.3 Family history of malignant neoplasm of breast
CPT/HCPCS: 77063; 77067

== ENCOUNTER 2023-05-31 16:06 | Outpatient (REF) | payer BC, SELFPAY ==
[2023-05-31 18:45] LABS: HCT 43.5 % (36.0-46.0); HGB 14.3 g/dL (11.2-15.7); MCH 30.2 pg (27.0-33.0); MCHC 32.9 % (32.0-36.0); MCV 92 fL (80-95); MPV 9.7 fL (8.0-11.0); Platelet Count 476 10^3/uL (130-400); RBC 4.74 10^6/uL (3.93-5.22); RDW 13.2 % (11.7-14.6); RDW-SD 44.7 fL; WBC 10.46 10^3/uL (4.4-10.8)
[2023-05-31 19:09] LABS: ALT 40 U/L (14-59); AST 26 U/L (15-37); Albumin 3.6 g/dL (3.4-5.0); Alkaline Phosphatase 102 U/L (46-116); Anion Gap 8.9 mmol/L (3-11); BUN 13 mg/dL (7-18); Bilirubin, Total 0.3 mg/dL (0.2-1.0); CO2 26.1 mmol/L (21.0-32.0); CREATININE 0.8 mg/dL (0.55-1.02); Calcium 9.2 mg/dL (8.5-10.1); Chloride 102 mmol/L (98-107); Glucose 116 mg/dL (74-106); Potassium 4.3 mmol/L (3.5-5.1); Sodium 137 mmol/L (136-145); Total Protein 7.4 g/dL (6.4-8.2)
== END 2023-05-31 16:07 | disposition home or self-care (01) ==
LOC: NCHCN 16:06
PROVIDERS: PCP Family Medicine; Visit Provider Family Medicine
DX: Z51.81 Encounter for therapeutic drug level monitoring (principal)
CPT/HCPCS: 80053; 85027

== ENCOUNTER 2023-07-05 18:38 | Outpatient (REF) | payer BC, SELFPAY ==
[2023-07-05 15:15] LABS: HCT 45.7 % (36.0-46.0); HGB 14.4 g/dL (11.2-15.7); MCHC 31.5 % (32.0-36.0); MCV 95 fL (80-95); MPV 9.6 fL (8.0-11.0); Platelet Count 475 10^3/uL (130-400); RDW 13.3 % (11.7-14.6); RDW-SD 46.9 fL; WBC 9.05 10^3/uL (4.4-10.8)
[2023-07-05 15:24] LABS: ALT 41 U/L (14-59); AST 22 U/L (15-37); Albumin 3.5 g/dL (3.4-5.0); Alkaline Phosphatase 111 U/L (46-116); Anion Gap 7.5 mmol/L (3-11); BUN 10 mg/dL (7-18); Bilirubin, Total 0.5 mg/dL (0.2-1.0); CO2 29.5 mmol/L (21.0-32.0); CREATININE 0.8 mg/dL (0.55-1.02); Calcium 9.6 mg/dL (8.5-10.1); Chloride 104 mmol/L (98-107); Glucose 130 mg/dL (74-106); Potassium 4.5 mmol/L (3.5-5.1); Sodium 141 mmol/L (136-145); Total Protein 7.6 g/dL (6.4-8.2)
== END 2023-07-05 18:39 | disposition home or self-care (01) ==
LOC: NCHCN 18:38
PROVIDERS: PCP Family Medicine; Visit Provider Family Medicine
DX: I10 Essential (primary) hypertension (principal); R73.03 Prediabetes; Z51.81 Encounter for therapeutic drug level monitoring
CPT/HCPCS: 80053; 85027

== ENCOUNTER 2024-05-04 23:45 | Outpatient (REF) | payer BC, SELFPAY ==
[2024-05-04 19:51] LABS: HCT 47.2 % (36.0-46.0); HGB 15.3 g/dL (11.2-15.7); MCH 30.3 pg (27.0-33.0); MCHC 32.4 % (32.0-36.0); MCV 94 fL (80-95); MPV 9.8 fL (8.0-11.0); Platelet Count 437 10^3/uL (130-400); RBC 5.05 10^6/uL (3.93-5.22); RDW 13.3 % (11.7-14.6); RDW-SD 45.9 fL; WBC 10.04 10^3/uL (4.4-10.8)
[2024-05-04 20:06] LABS: ALT 49 U/L (14-59); AST 32 U/L (15-37); Albumin 3.7 g/dL (3.4-5.0); Alkaline Phosphatase 118 U/L (46-116); BUN 14 mg/dL (7-18); Bilirubin, Total 0.47 mg/dL (0.2-1.0); CREATININE 0.8 mg/dL (0.55-1.02); Calcium 10.2 mg/dL (8.5-10.1); Chloride 101 mmol/L (98-107); Glucose 108 mg/dL (74-106); Potassium 4.3 mmol/L (3.5-5.1); Sodium 140 mmol/L (136-145); Total Protein 7.9 g/dL (6.4-8.2)
--- OUTSIDE RECORDS SUMMARY | 2024-05-04 23:48 | XMS_ITS | Encounter Summary ---
[place] [address] Care Team Providers Care Business Mgr Name Role Phone Prisca Gutierrez MD Primary Care Provider [phone] Reason for Visit * Reason Comments Medication Refill Encounter Details Date Type Department Care Team (Late st Contact Info) Description 06/28/2023 Refill Derm[facility]ology at [place] [address] [place] [id number] Ronnie Marroquin MD [address], [place] [address] Social History Tobacco Use Types Packs/Day Years Used Date Smoking Tobacco: Former Cigarettes 0.5 10 Smokeless Tobacco: Former Quit: 10/12/2021 Sex and Gender Information Value Date Recorded Sex Assigned at Not on file Gender Identity Not on file Sexual Orientation Not on file documented as of this encounter Plan of Treatment Not on file documented as of this encounter Visit Diagnoses Not on filedocumented in this encounter Care Teams Business Mgr Relationship Specialty Start Date End Date Prisca Gutierrez MD [address] [place] [address] PCP - General Family Medicine 01/30/18 documented as of this encounter
--- OUTSIDE RECORDS SUMMARY | 2024-05-04 23:48 | XMS_ITS | Encounter Summary ---
Author Organization [facility] Address [address] [place] [address] Care Team Providers Care Bindery Machine Tender Name Role Phone Sher Lisa MD Primary Care Provider Unavailab le Encounter Details Date Type Department Care Team (Late st Contact Info) Description 10/12/2021 Lab Requisition [facility] - [address] [address] Outr Resulting Lab, Provider Social History Tobacco Use Types Packs/Day Years Used Date Smoking Tobacco: Never Assessed Sex and Gender Information Value Date Recorded Sex Assigned at Not on file Gender Identity Not on file Sexual Orientation Not on file documented as of this encounter Plan of Treatment Not on file documented as of this encounter Procedures Procedure Name Priority Date/Time Associated Diagnosis Comments C4 COMPLEMENT Routine 10/12/2021 5:30 EST documented in this encounter Results * C4 COMPLEMENT (10/12/2021 5:30 EST) C4 Complement 37 13 - 39 mg/dL 10/13/2021 11:34 EST [facility] Blood VENOUS BLOOD / Unknown 10/12/2021 5:30 EST 10/12/2021 16:46 EST Provider Outr Resulting Lab CHEMISTRY & BLOOD GAS ORDERABLES [facility] [address] [place] [address] documented in this encounter Visit Diagnoses Not on filedocumented in this encounter Care Teams Bindery Machine Tender Relationship Specialty Start Date End Date Sher Lisa MD PCP - General 08/02/15 documented as of this encounter
--- OUTSIDE RECORDS SUMMARY | 2024-05-04 23:48 | XMS_ITS | Encounter Summary ---
[facility] [place] [address] Care Team Providers Care Jack Spinner Name Role Phone Prisca Gutierrez MD Primary Care Provider [phone] Encounter Details Date Type Department Care Team (Late st Contact Info) Description 12/20/2021 Refill Dermatology at [address] [place] [address] Jane Cardenas LPN Social History Tobacco Use Types Packs/Day Years Used Date Smoking Tobacco: Every Day Cigarettes 0.5 10 Smokeless Tobacco: Never Sex and Gender Information Value Date Recorded Sex Assigned at Not on file Gender Identity Not on file Sexual Orientation Not on file documented as of this encounter Miscellaneous Notes * Telephone Encounter - Jane Cardenas LPN - 12/20/2021 2:48 PM EDT Patient last seen 02/28/21 psoriasis, psoriasiform dermatitis right and left medical feet Patient requesting refill for halobetasol ointment. Applies as needed. Prescription sent to [facility] per pt request. documented in this encounter Plan of Treatment Not on file documented as of this encounter Visit Diagnoses Not on filedocumented in this encounter Care Teams Jack Spinner Relationship Specialty Start Date End Date Prisca Gutierrez MD [address] [place] [address] [address] [place] [address] PCP - General Family Medicine 5/10/18 documented as of this encounter
--- OUTSIDE RECORDS SUMMARY | 2024-05-04 23:48 | XMS_ITS | Encounter Summary ---
[place] [address] Care Team Providers Care Dye Range Operator Cloth Name Role Phone Prisca Gutierrez MD Primary Care Provider [phone] Reason for Referral * Allergy Testing (Routine) - Closed Specialty Diagnoses / Procedures Referred By Quentin zaragoza Referred To Contact Allergy Diagnoses Hx of allergic reaction Angioneurotic edema, subsequent encounter Prisca Gutierrez MD [address] [place] [address] [facility] Allergy [address] [place] [address] Referral ID Status Reason Start Date Expiration Date V isits Requested Visits Authorized [id number] Closed Consult, Test & Treat PCP Updated and/or Approved 01/19/2022 01/19/2023 6 6 Encounter Details Date Type Department Care Team (Latest Contact Info) Description 01/19/2022 Transcribe Orders eDH Incoming Referrals [phone] Prisca Gutierrez MD [address] [place] [address] Hx of allergic reaction; Angioneurotic edema, subsequent encounter Social History Tobacco Use Types Packs/Day Years Used Date Smoking Tobacco: Every Day Cigarettes 0.5 10 Smokeless Tobacco: Never Sex and Gender Information Value Date Recorded Sex Assigned at Not on file Gender Identity Not on file Sexual Orientation Not on file documented as of this encounter Plan of Treatment Scheduled Referrals Name Type Priority Associated Diagnoses Orde r Schedule Referral to Allergy Outpatient Referral Routine Hx of allergic reaction Angioneurotic edema, subsequent encounter Ordered: 01/19/2022 documented as of this encounter Visit Diagnoses Diagnosis Hx of allergic reaction Other allergy, other than to medicinal agents Angioneurotic edema, subsequent encounter documented in this encounter Care Teams Dye Range Operator Cloth Relationship Specialty Start Date End Date Prisca Gutierrez MD [facility] [address] [address] [place] [address] PCP - General Family Medicine 01/30/18 documented as of this encounter
--- OUTSIDE RECORDS SUMMARY | 2024-05-04 23:48 | XMS_ITS | Encounter Summary ---
Author Organization [facility] [place] [address] Care Team Providers Care Prosthetics Lab Technician Name Role Phone Prisca Gutierrez MD Primary Care Provider [phone] Encounter Details Date Type Department Care Team (Late st Contact Info) Description 03/19/2022 Refill Dermatology at [address] [place] [address] Jane Cardenas LPN Social History Tobacco Use Types Packs/Day Years Used Date Smoking Tobacco: Former Cigarettes 0.5 10 Smokeless Tobacco: Former Quit: 10/12/2021 Sex and Gender Information Value Date Recorded Sex Assigned at Not on file Gender Identity Not on file Sexual Orientation Not on file documented as of this encounter Miscellaneous Notes * Telephone Encounter - Jane Cardenas LPN - 03/19/2022 8:20 AM EDT Pt requesting refill on Halobetasol ointment for psoriasis. Approval by Dr. Marroquin. Order sent to [facility] per patient request. documented in this encounter Plan of Treatment Not on file documented as of this encounter Visit Diagnoses Not on filedocumented in this encounter Care Teams Prosthetics Lab Technician Relationship Specialty Start Date End Date Prisca Gutierrez MD [address] [place] [address] PCP - General Family Medicine 01/30/18 documented as of this encounter
--- OUTSIDE RECORDS SUMMARY | 2024-05-04 23:48 | XMS_ITS | Encounter Summary ---
Author Organization [facility] Address [address] [place] [address] Care Team Providers Care Civil Transportation Engineer Name Role Phone Unavailable Primary Care Provider Unavailabl e Encounter Details Date Type Department Care Team (Late st Contact Info) Description 10/17/[address] [facility] [address] [place], [place] [address] Prisca Ramirez MD [address] [address] Social History Tobacco Use Types Packs/Day Years Used Date Smoking Tobacco: Never Assessed Sex and Gender Information Value Date Recorded Sex Assigned at Not on file Gender Identity Not on file Sexual Orientation Not on file documented as of this encounter Plan of Treatment Not on file documented as of this encounter Procedures Procedure Name Priority Date/Time Associated Diagnosis Comments PAP TEST- RESULT ONLY Routine 10/17/2011 0:00 EST documented in this encounter Results * PAP TEST- RESULT ONLY (10/17/2011 0:00 EST) Pathology Report: CYTOPATHOLOGY REPORT Reports generated via electronic interface contain original data; however they are lacking the format of the original report. Caution should be taken when reading/interpreti ng unformatted reports. Name: ? MEHREEN MICHAEL ? Accession #: ? [id number] ? : ? 1970 (Age: 41) ??F ?Collect Date: ? 10/17/2011 ? Location: ? [facility] ? Receive Date: ? 10/18/2011 ? Provider: PRISCA RAMIREZ MD Copy to: ? Final Report SPECIMEN ADEQUACY ? Satisfactory for Evaluation - transformation zone component present GENERAL CATEGORIZATION ? Negative for Intraepithelial Lesion or Malignancy ?? Last Menstural Period: 10/12/11 Treatment History: Cone biopsy: IN Other: Additional clinical information: HX ABN PAPS Specimen/Source: ??Pap Test, Cervix/Endocervix, ThinPrep Imaging System with manual evaluation Document reviewed and electronically signed by: ? JOHN Hensley(ASCP) ? Report ??Date: 10/22/2011 15:27 HPV with Pap Test ? Date Ordered: ? 10/22/2011 ? Status: ?? Signed Out ?Date Complete: ? 10/24/2011 ? By: ??System Interface ? Date Reported: ? 10/24/2011 ? Interpretation RESULT: Negative for HPV types 16, 18, 31, 33, 35, 39, 45, 51, 52, 56, 58, 59, and 68. Comments Document reviewed and electronically signed by: ? System Interface ? Report date: 10/24/2011 By the signature above, the attending physician certifies that he/she has personally conducted a gross and/or microscopic examination of the described specimens and rendered or confirmed the above diagnosis. End of Report [facility] 10/17/2011 10/18/2011 Prisca Ramirez MD PATHOLOGY ORDERABLES Performing Organization Address City/State/[facility] Co de Phone Number [facility] [address] [place] [address] documented in this encounter Visit Diagnoses Not on filedocumented in this encounter
--- OUTSIDE RECORDS SUMMARY | 2024-05-04 23:48 | XMS_ITS | Encounter Summary ---
Author Organization [facility] [place] [address] Care Team Providers Care Credentialing Coordinator Name Role Phone Prisca Gutierrez MD Primary Care Provider [phone] Reason for Visit * Allergy Testing (Routine) - Closed Specialty Diagnoses / Procedures Referred By Quentin t Referred To Contact Allergy Diagnoses Hx of allergic reaction Angioneurotic edema, subsequent encounter Prisca Gutierrez MD [address] [place] [address] [address] [facility] Allergy [address] [place] [phone] Referral ID Status Reason Start Date Expiration Date V isits Requested Visits Authorized [id number] Closed Consult, Test & Treat PCP Updated and/or Approved 01/19/2022 01/19/2023 6 6 Encounter Details Date Type Department Care Team (Late st Contact Info) Description 01/30/2022 8:30 AM EDT [place] [address] Yudelka Aguiar MD [facility] [place] [address] Angioedema, initial encounter Social History Tobacco Use Types Packs/Day Years Used Date Smoking Tobacco: Former Cigarettes 0.5 10 Smokeless Tobacco: Former Quit: 10/12/2021 Sex and Gender Information Value Date Recorded Sex Assigned at Not on file Gender Identity Not on file Sexual Orientation Not on file documented as of this encounter Last Filed Vital Signs Vital Sign Reading Time Taken Comments Blood Pressure 116/80 01/30/2022 8:39 AM EDT Pulse 80 01/30/2022 8:39 AM EDT Temperature - - Respiratory Rate - - Oxygen Saturation 98% 01/30/2022 8:39 AM EDT Inhaled Oxygen Concentration - - Weight - - Height - - Body Mass Index - - documented in this encounter Patient Instructions * Patient Instructions* Yudelka Aguiar MD - 01/30/2022 8:55 AM EDT Cetirizine 10 mg twice a day documented in this encounter Progress Notes * Yudelka Aguiar MD - 01/30/2022 8:30 AM EDT Images from the original note were not included. [facility] Section of Allergy and Clinical Immunology Date of Service: 01/30/22 Primary Care Provider: Prisca Gutierrez MD Patient Age: 51 y.o. 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 This morning she took Benedryl 25 mg, and was a bit better. She recalls she took Aleve 2 weeks ago, she had another episode, but not sure timing. Work is typically from [employer]. She had COVID-19 about 1 month ago, angioedema started before then. Outpatient Medications Marked as Taking for the 01/30/22 encounter (Office Visit) with Yudelka Aguiar MD Medication Sig Dispense Refill ??? cetirizine (ZyrTEC) 10 mg Tablet Take 10 mg by mouth daily. ??? amLODIPine (Norvasc) 10 mg Tablet Daily. ??? halobetasol (ULTRAVATE) 0.05 % Ointment Apply twice daily to psoriasis, as needed 45 g 2 ??? [DISCONTINUED] amLODIPine (Norvasc) 5 mg Tablet Take 5 mg by mouth daily. Allergies Allergen Reactions ??? Lisinopril ??? Penicillins Other reaction(s): Skin Rash No family history on file. Social History Tobacco Use ??? Smoking status: Former Smoker Packs/day: 0.50 Years: 10.00 Pack years: 5.00 Types: Cigarettes ??? Smokeless tobacco: Former User Quit date: 10/12/2021 Vaping Use ??? Vaping Use: Never used Status: . Review of Systems: General: denies any fever, fatigue, chills, unintentional weight gain, night sweats. Eyes: denies any itchy, red eyes. Denies any ocular discharge, blurriness, dryness. Ears: denies any pain, pressure, fullness, pruritus, tinnitus Nose: denies nasal congestion, post nasal drip, sneezing, snoring. Denies a history of nasal polyps, loss of smell Mouth/throat: denies loss of taste, mouth sores, bad breath, itchy mouth, itchy throat, difficulty swallowing. GI: denies any heartburn or reflux, food regurgitation, nausea/vomiting, diarrhea, abdominal pain, constipation. Respiratory: denies any cough, wheezing, shortness of breath, trouble with exercise, snoring, hemoptysis. Cardiovascular: denies any chest pain, arrhythmia. : denies any difficulty with urination, dysuria, hematuria, kidney stones. Skin: denies any history of eczema, hives and angioedema MSK: denies any muscle aches, joint pains, bone pain. Neurologic: denies any headaches, numbness, weakness, stroke or LOS. Psychiatric: denies any anxiety or depression. Endocrine: Denies any heat or cold intolerance, excessive thirst or urination. Hematologic: denies easy bruising Environmental History: Pets in the home: dogs (1). Objective: BP 116/80 Pulse 80 SpO2 98% No flowsheet data found. Wt Readings from Last 3 Encounters: 01/26/21 108.9 kg (240 lb) Gen: awake, alert, no acute distress Head: normocephalic, atraumatic EYES: Conjunctiva not injected or icteric. No discharge. No eyelid edema. ENT: Nasal passages show normal mucosa, edematous turbinates bilaterally, no lesions. OP mucosa well hydrated, clear without erythema. No lesions or exudates. No visible OP edema. +Left tongue swelling NECK: supple, symmetric, no masses, trachea midline LYMPH: no submandibular, cervical, or supraclavicular LAD CVS: RRR LUNGS: CTAB, no wheezing or crackles, breathing unlabored ABD: non-distended, bowel sounds present SKIN: no rashes, normal color, no mottling EXTREMITIES: warm and well-perfused, normal bulk, symmetric ROM. NEURO: EOMI, no dysarthria PSYCH: normal grooming, appropriate mood and affect, normal volume/quantity/tone of speech, normal thought process and content Review of Medical Records: I reviewed referral record and [facility] records. 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 Plan to check complement levels, baseline tryptase, thyroid function. I recommend trial of cetirizine 10 mg twice daily, may be sedating. I have asked her to monitor NSIAD dose. All questions were answered, and patient expressed understanding of the plan. Thank you for the opportunity to participate in the care of your patient. Ongoing follow-up with the patient's primary care physician is recommended and encouraged. If I can provide any further assistance, please do not hesitate to contact me. Next visit (studies planned): return to follow-up in 4-6 weeks, sooner if needed, telehealth [place] Yudelka Akhtar MD [employer], [place] [address] [email or web address] documented in this encounter Plan of Treatment Not on file documented as of this encounter Procedures Procedure Name Priority Date/Time Associated Diagnosis Comments HC VENIPUNCTURE Routine 01/30/2022 9:32 AM EDT Angioedema, initial encounter HC THYROID STIMULATING HORMONE, SERUM Routine 01/30/2022 9:32 AM EDT Angioedema, initial encounter HC TRYPTASE Routine 01/30/2022 9:32 AM EDT Angioedema, initial encounter HC COMPLEMENT,C3 SERUM Routine 9:32 AM EDT Angioedema, initial encounter HC COMPLEMENT C4, PLASMA Routine 01/30/2022 9:32 AM EDT Angioedema, initial encounter HC SERUM PROT. ELECTROPHORESIS Routine 01/30/2022 9:32 AM EDT Angioedema, initial encounter documented in this encounter Results * (ABNORMAL) C1q Complement (01/30/2022 9:32 AM EDT) Complement C1Q (JANUARY) 23(H) 12 - 22 mg/dL [facility] Comment: ADDITIONAL INFORMATION This test was developed and its performance characteristics determined by [facility] in a manner consistent with CLIA requirements. This test has not been cleared or approved by the U.S. Food and Drug Administration. Test Performed by: [facility] [id number] Manufacturing Manager: Satya Newell M.D. Ph.D.; CLIA# [id number] Blood 01/30/2022 9:32 AM EDT 01/30/2022 3:47 PM EDT Narrative Resulting Agency Comment Spec In Lab Yudelka Akhtar MD LAB SEND OUT SONA ELMORE [facility] [place] [address] * TSH [place] (01/30/2022 9:32 AM EDT) [facility] Signature Thyroid Stimulating Hormone 2.52 0.27 - 4.20 mcIU/mL [facility] Comment: Reference Interval (mcIU/mL): Females: ??First Trimester: 0.23-3.88 ??Second Trimester: 0.22-3.90 ??Third Trimester: 0.44-4.66 Blood 01/30/2022 9:32 AM EDT 01/30/2022 9:45 AM EDT Narrative Resulting Agency Comment Spec In Lab Yudelka Akhtar MD CHEMISTRY ORDERAB LES Performing Organization Address City/[facility] Co de Phone Number [facility] [place] [address] * Protein Electrophoresis, serum (01/30/2022 9:32 AM EDT) Total Prot Electrophoresis 7.2 6.1 - 8.0 g/dL [facility] Albumin Electrophoresis 4.33 3.60 - 6.00 g/dL [facility] Alpha 1 Globulin 0.18 0.10 - 0.30 g/dL [facility] Alpha 2 Globulin 0.73 0.40 - 0.90 g/dL [facility] Beta Globulin 0.95 0.50 - 1.00 g/dL [facility] Gamma Globulin 1.01 0.50 - 1.30 g/dL [facility] M1 Band None Detected None Detected [facility] Blood 01/30/2022 9:32 AM EDT 01/30/2022 9:45 AM EDT Narrative Resulting Agency Comment Spec In Lab Yudelka Akhtar MD CHEMISTRY ORDERAB LES Performing Organization Address [facility] Co de Phone Number [facility] [place] [address] * Tryptase (01/30/2022 9:32 AM EDT) Tryptase 4.1 <=8.4 ng/mL [facility] Comment: Total tryptase concentrations that are persistently greater than 20 ng/mL may be consistent with systemic mastocytosis. Blood 01/30/2022 9:32 AM EDT 01/30/2022 11:30 AM EDT Narrative Resulting Agency Comment Spec In Lab Yudelka Akhtar MD CHEMISTRY ORDERAB LES Performing Organization Address City/[facility]/ZIP Co de Phone Number [facility] [place] [address] * C3 Complement (01/30/2022 9:32 AM EDT) Complement C3 148 90 - 180 mg/dL [facility] Blood 01/30/2022 9:32 AM EDT 01/30/2022 9:45 AM EDT Narrative Resulting Agency Comment Spec In Lab Yudelka Akhtar MD CHEMISTRY ORDERAB LES Performing Organization Address City/[facility] Co de Phone Number [facility] [place] [address] * C4 Complement (01/30/2022 9:32 AM EDT) Complement C4 33 10 - 40 mg/dL [facility] Blood 01/30/2022 9:32 AM EDT 01/30/2022 9:45 AM EDT Narrative Resulting Agency Comment Spec In Lab Yudelka Akhtar MD CHEMISTRY ORDERAB LES Performing Organization Address City/[facility] Co de Phone Number [facility] [place] [address] documented in this encounter Visit Diagnoses Diagnosis Angioedema, initial encounter documented in this encounter Care Teams Credentialing Coordinator Relationship Specialty Start Date End Date Prisca Gutierrez MD [address] [place] [address] PCP - General Family Medicine 01/30/18 documented as of this encounter
--- OUTSIDE RECORDS SUMMARY | 2024-05-04 23:48 | XMS_ITS | Referral Summary ---
Author Organization [facility] Address [address] [place] [address] Care Team Providers Care Corner Cutter Machine Operator Name Role Phone Sher Lisa MD Primary Care Provider Unavailab le Social History Tobacco Use Types Packs/Day Years Used Date Smoking Tobacco: Never Assessed Sex and Gender Information Value Date Recorded Sex Assigned at Not on file Gender Identity Not on file Sexual Orientation Not on file Plan of Treatment Not on file Procedures Procedure Name Priority Date/Time Associated Diagnosis Comments HEPATITIS C AB W REFLEX TO HCV RNA BY PCR Routine 12/06/2021 8:25 EDT from Last 3 Months or Most Recently Relevant to Health Maintenance Results * HEPATITIS C AB W REFLEX TO HCV RNA BY PCR (12/06/2021 8:25 EDT) Hep C Antibody Negative Negative 12/07/2021 9:38 EDT [facility] Blood VENOUS BLOOD / Unknown 12/06/2021 8:25 EDT 12/06/2021 21:26 EDT Provider Outr Resulting Lab CHEMISTRY & BLOOD GAS ORDERABLES [facility] [address] [place] [address] from Last 3 Months or Most Recently Relevant to Health Maintenance Care Teams Corner Cutter Machine Operator Relationship Specialty Start Date End Date Sher Lisa MD PCP - General 08/02/15
--- OUTSIDE RECORDS SUMMARY | 2024-05-04 23:48 | XMS_ITS | Encounter Summary ---
[place] [address] Care Team Providers Care Dementia Program Director Name Role Phone Ashlyn Mahoney APRN Primary Care Provider [phone] Reason for Visit * Reason Comments Rosacea Encounter Details Date Type Department Care Team (Late st Contact Info) Description 02/20/2013 9:00 AM EDT Office Visit Dermatology [address] [place] [address] Ronnie Marroquin MD [address], [place] [address] History of malignant melanoma (Primary Dx); Rosacea Social History Tobacco Use Types Packs/Day Years Used Date Smoking Tobacco: Unknown Sex and Gender Information Value Date Recorded Sex Assigned at Not on file Gender Identity Not on file Sexual Orientation Not on file documented as of this encounter Progress Notes * Ronnie Marroquin MD - 02/20/2013 9:40 AM EDT Problem is: 1. Skin check. 2. Rosacea. 3. History of malignant melanoma, right medial breast, excised by Dr. Mea in [place] 2001. 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 She was diagnosed with melanoma, and this was excised, and she has done well since. She did not require sentinel lymph node biopsy or interferon. She had regular followups while she was in [place] but no evidence of new areas of melanoma nor recurrence at the old site. She also is concerned about worsening rosacea and wonders what can be done for this. She gets a little bit of sun and tans a little bit; it is minimally apparent. It becomes more apparent during a [place] winter. She was given MetroGel to try for this twice daily but used it only for a week and then stopped it waiting for today's appointment. Physical examination reveals a pleasant 42-year-old who is blue eyed, blonde haired, and has a somewhat fish-mouthed but well-healed scar on the right medial breast at the site of her melanoma excision. There is no recurrent pigmentation. She has mild telangiectatic rosacea of the cheeks. She has no papular involvement. She also has some telangiectasias of the upper V of her neck. Careful examination of the head and the neck, the chest, the back, hands, arms, forearms, thighs, and calves is otherwise unremarkable. The patient has no other dermatologic concerns and is cooperative in no acute distress. Assessment and Plan: 1. History of malignant melanoma 2001, [place]. a. Patient reassured about benign examination today. b. Continue sun avoidance precautions. c. Would recommend yearly skin checkups, and we will initiate that here through my office. Return to clinic reminder one year. 2. Rosacea. a. Would recommend that she indeed start using the MetroGel 0.75% on a b.i.d. basis for about a month to observe for improvement. If none is forthcoming, would try sodium sulfacetamide 10%/sulfur 5% lotion, applying on a b.i.d. basis. c. Discussed the option of oral antibiotics, which neither of us would be eager to advance to, given also the difficulty of treating telangiectatic rosacea. I discussed then really using coverup makeup as she is doing now to try to mask this. Return to clinic here one year for repeat check. COPY: Ashlyn Mahoney A.P.R.N. Note: One-half hour was spent with the patient, more than half of which was spent in counseling. documented in this encounter Plan of Treatment Not on file documented as of this encounter Visit Diagnoses Diagnosis History of malignant melanoma- Primary Personal history of malignant melanoma of skin Rosacea documented in this encounter Care Teams Dementia Program Director Relationship Specialty Start Date End Date Ashlyn Mahoney APRN PCP - General 08/15/10 11/18/16 documented as of this encounter
--- OUTSIDE RECORDS SUMMARY | 2024-05-04 23:48 | XMS_ITS | Encounter Summary ---
Author Organization [facility] Address [address] [place] [address] Care Team Providers Care Feed Mill Tender Name Role Phone Sher Lisa MD Primary Care Provider Unavailab le Encounter Details Date Type Department Care Team (Late st Contact Info) Description 12/06/2021 Lab Requisition [facility] Pathology & Laboratory Medicine - [address] [address] Outr Resulting Lab, Provider Social History Tobacco [...] RNA BY PCR Routine 12/06/2021 8:25 EDT documented in this encounter Results * HEPATITIS C AB W REFLEX TO HCV RNA BY PCR (12/06/2021 8:25 EDT) Hep C Antibody Negative Negative 12/07/2021 9:38 EDT [facility] Blood VENOUS BLOOD / Unknown 12/06/2021 8:25 EDT 12/06/2021 21:26 EDT Provider Outr Resulting Lab CHEMISTRY & BLOOD GAS ORDERABLES [facility] [address] [place] [address] documented in this encounter Visit Diagnoses Not on filedocumented in this encounter Care Teams Feed Mill Tender Relationship Specialty Start Date End Date Sher Lisa MD PCP - General 08/02/15 documented as of this encounter
--- OUTSIDE RECORDS SUMMARY | 2024-05-04 23:48 | XMS_ITS | Encounter Summary ---
Author Organization [facility] [place] [address] Care Team Providers Care Conservation Assistant Name Role Phone Prisca Gutierrez MD Primary Care Provider [phone] Encounter Details Date Type Department Care Team (Late st Contact Info) Description 07/01/2023 Refill Dermatology at [address] [phone] Alicia Guzman RN Social History Tobacco Use Types Packs/Day Years Used Date Smoking Tobacco: Former Cigarettes 0.5 10 Smokeless Tobacco: Former Quit: 10/12/2021 Sex and Gender Information Value Date Recorded Sex Assigned at Not on file Gender Identity Not on file Sexual Orientation Not on file documented as of this encounter Miscellaneous Notes * Telephone Encounter - Alicia Guzman RN - 07/01/2023 3:10 PM EDT Received request for refill for halobetasol Prop 0.05% ointment. Tried to contact patient on 06/28/2023 and was able to get in contact with patient today via her work number. Home and cell phone number was not correct. She stated that she needs a refill for Halobetasol Prop 0.05% ointment to apply twice daily to psoriasis as needed. Patient stated that she uses it on her foot as needed. Patient informed that her last visit was a no show on 02/08/2023 and informed her that Dr. Marroquin wanted her tofollow up. Patient last seen on 08/28/2022. Patient has no future appointments and patient stated she would have to call back to schedule an appointment because she was currently at work. Patient would like the prescription to be called in to [facility] in [place]. Prescription last filled 12/27/2022 Halobetasol propionate 0.05% Apply thin layer topically twice daily to psoriasis as needed. Dispense 45 g with 2 refills. Patient informed . documented in this encounter Plan of Treatment Not on file documented as of this encounter Visit Diagnoses Not on filedocumented in this encounter Care Teams Conservation Assistant Relationship Specialty Start Date End Date Prisca Gutierrez MD [address] [place] [address] PCP - General Family Medicine 01/30/18 documented as of this encounter
--- OUTSIDE RECORDS SUMMARY | 2024-05-04 23:48 | XMS_ITS | Encounter Summary ---
Author Organization [facility] Address [address] [place] [address] Care Team Providers Care Radiologic Technologist Name Role Phone Unavailable Primary Care Provider Unavailabl e Encounter Details Date Type Department Care Team (Late st Contact Info) Description 05/10/2010 Results Only [facility] Laboratory Services - [facility] ([facility]) [address] [place], [place] [address] Thais Anderson NP [address] [place] [address] Social History Tobacco Use Types Packs/Day Years Used Date Smoking Tobacco: Never Assessed Sex and Gender Information Value Date Recorded Sex Assigned at Not on file Gender Identity Not on file Sexual Orientation Not on file documented as of this encounter Plan of Treatment Not on file documented as of this encounter Procedures Procedure Name Priority Date/Time Associated Diagnosis Comments CYTOPATHOLOGY Routine 05/10/2010 0:00 EDT documented in this encounter Results * CYTOPATHOLOGY (05/10/2010 0:00 EDT) Pathology Report: CYTOPATHOLOGY REPORT ? Reports generated via electronic interface contain original data; ? however they are lacking the format of the original report. ? Caution should be taken when reading/interpreti ng unformatted reports. ? Name: ? MEHREEN MICHAEL ? Accession #: ? [id number] ? : ? 1970 (Age: 39) ??F ?Collect Date: ? 05/10/2010 ? Location: ? [facility] ? Receive Date: ? 05/12/2010 ? Provider: ?THAIS ANDERSON TECHNICIAN BIOLOGICAL HEALTH ? Copy to: ? Specimen/Source: ?Pap Test, Cervix/Endocervix, ThinPrep Imaging System ? with manual evaluation ? Last Menstrual Period: ? 07/28/10 ? Treatment History: ? Colposcopy: ??1995 ? Other: ? HPVA - HPV testing requested if ASC-US on the current ThinPrep Pap test. ? SPECIMEN ADEQUACY ? Satisfactory for Evaluation ? - transformation zone component present ? GENERAL CATEGORIZATION ? Negative for Intraepithelial Lesion or Malignancy ? Document reviewed and electronically signed by: ? Broderick Hall, [place](ASCP) ? Report Date: ??05/16/2010 12:15 ? End of Report ? [facility] 05/10/2010 05/12/2010 Thais Anderson NP PATHOLOGY ORDERABLES [facility] [address] [place] [address] documented in this encounter Visit Diagnoses Not on filedocumented in this encounter
--- OUTSIDE RECORDS SUMMARY | 2024-05-04 23:48 | XMS_ITS | Encounter Summary ---
Author Organization [facility] [address] Care Team Providers Care Bobbin Painter Name Role Phone Prisca Gutierrez MD Primary Care Provider [phone] Encounter Details Date Type Department Care Team (Late st Contact Info) Description 02/04/2020 8:30 AM EDT TH Visit ([facility]) Dermatology at [address] [phone] Ronnie Marroquin MD [address] [facility], [place] [address] Psoriasis Social History Tobacco Use Types Packs/Day Years Used Date Smoking Tobacco: Unknown Smokeless Tobacco: Never Sex and Gender Information Value Date Recorded Sex Assigned at Not on file Gender Identity Not on file Sexual Orientation Not on file documented as of this encounter Progress Notes * Ronnie Marroquin MD - 02/04/2020 8:30 AM EDT Problem: 1. 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 History of malignant melanoma, right medial breast, excised by Dr. Mae in [place] 2001 3. Patient lived for 10 years in [place] 4. Cigarette smoker, 1/2 pack a day [facility] Dean follows up after last seeing me in January 2018 for the psoriasiform dermatitis of her right foot, which in combination with a small patch on her right medial calf led me to suspect psoriasis. I prescribed clobetasol cream in the past, and then at the time of this January 2018 visit advance to clobetasol ointment. She sends photographs documenting that she still quite definitely has plaques of the left medial foot the right medial foot the sole of the right foot and also on the right lateral foot. She states that after she saw me last in January 2018 at [place] for time her feet cleared up pretty well. Recently however they have been flaring again and not responding to the clobetasol ointment. It helps a little bit but it seems that the areas of involvement are spreading on her feet but not above the ankle to other bodily areas. She has no palmar involvement. She no longer has the area of the dime sized plaque on the right medial calf. She is not aware of any family history of psoriasis but will ask her mother. She admits that she does smokes about half of a pack of cigarettes a day. I explained that this can exacerbate this form of psoriasis. Assessment plan: Psoriasis, right and left medial feet, right lateral foot, and sole of right foot. 1. Encourage patient to quit cigarette smoking 2. Patient is likely developed tachyphylaxis to clobetasol ointment, will switch to halobetasol ointment apply on a twice daily basis for 3 weeks and then we will schedule another telehealth telephone visit. Dispense 45 g with 1 refill. 3. If this is not successful consider the option of methotrexate which I discussed with the patienttoday. 4. I discussed the National psoriasis foundation website as an excellent source of information about psoriasis. 5. Discussed the exacerbating factors for psoriasis. 6. Return telephone visit 3 weeks CC: Prisca Gutierrez MD ?? documented in this encounter Plan of Treatment Not on file documented as of this encounter Visit Diagnoses Diagnosis Psoriasis Other psoriasis documented in this encounter Care Teams Bobbin Painter Relationship Specialty Start Date End Date Prisca Gutierrez MD [facility] [address] [place] [address] PCP - General Family Medicine 01/30/18 documented as of this encounter
--- OUTSIDE RECORDS SUMMARY | 2024-05-04 23:48 | XMS_ITS | Encounter Summary ---
[place] [address] Care Team Providers Care Ekg Technician Name Role Phone Prisca Gutierrez MD Primary Care Provider [phone] Encounter Details Date Type Department Care Team (Late st Contact Info) Description 12/27/2022 Refill Dermatology at [address] [place] [phone] Jane Cardenas, [facility] [place] Social History Tobacco Use Types Packs/Day Years [...] on filedocumented in this encounter Care Teams Ekg Technician Relationship Specialty Start Date End Date Prisca Gutierrez MD [address] [place] [address] [address] [place] [address] PCP - General Family Medicine 01/30/18 documented as of this encounter
--- OUTSIDE RECORDS SUMMARY | 2024-05-04 23:48 | XMS_ITS | Encounter Summary ---
Author Organization [facility] [place] [address] Care Team Providers Care Anodizing Line Operator Name Role Phone Prisca Gutierrez MD Primary Care Provider [phone] Encounter Details Date Type Department Care Team (Late st Contact Info) Description 12/28/2022 Telephone Dermatology at [address] [phone] Alicia Guzman RN Social History Tobacco Use Types Packs/Day Years Used Date Smoking Tobacco: Former Cigarettes 0.5 10 Smokeless Tobacco: Former Quit: 10/12/2021 Sex and Gender Information Value Date Recorded Sex Assigned at Not on file Gender Identity Not on file Sexual Orientation Not on file documented as of this encounter Miscellaneous Notes * Telephone Encounter - Alicia Guzman RN - 12/28/2022 1:18 PM EDT Patent returned our message from yesterday. Patient to start Methotrexate for her Psoriasis. Went over with the patient how to take the Folic acid, the Halobetasol and Methotrexate. Patient also informed that she will need a 1 month follow up appointment and will need to have lab work done a few days before her appointment. Patient stated she understood. Patient wants her lab orders to Be faxed to [facility]. Patient did schedulee for her 1 month follow up appointment on 02/08/2023. Patient to call office if she has any other questions or concerns documented in this encounter Plan of Treatment Not on file documented as of this encounter Visit Diagnoses Not on filedocumented in this encounter Care Teams Anodizing Line Operator Relationship Specialty Start Date End Date Prisca Gutierrez MD [facility] [address] [facility] [address] [place] [address] PCP - General Family Medicine 01/30/18 documented as of this encounter
--- OUTSIDE RECORDS SUMMARY | 2024-05-04 23:48 | XMS_ITS | Encounter Summary ---
Author Organization [facility] Address [address] [place] [address] Care Team Providers Care Sales Leader Name Role Phone Sher Lisa MD Primary Care Provider Unavailab le Encounter Details Date Type Department Care Team (Late st Contact Info) Description 12/24/2022 Lab Requisition [facility] Pathology & Laboratory Medicine - [facility] [address] [place] [address] Prisca Gutierrez MD [address] [place] [phone] Encounter for other general examination Social History Tobacco Use Types Packs/Day Years Used Date Smoking Tobacco: Never Assessed Sex and Gender Information Value Date Recorded Sex Assigned at Not on file Gender Identity Not on file Sexual Orientation Not on file documented as of this encounter Plan of Treatment Not on file documented as of this encounter Procedures Procedure Name Priority Date/Time Associated Diagnosis Comments PAP TEST Today 12/21/2022 8:55 EDT Encounter for other general examination HPV DNA DETECTION WITH GENOTYPING, PCR Today 12/21/2022 8:55 EDT Encounter for other general examination documented in this encounter Results * HUMAN PAPILLOMAVIRUS (HPV) DETECTION-HIGH RISK TYPES (12/21/2022 8:55 EDT) HPV other High Risk types, PCR Negative Negative 01/03/2023 16:03 EDT [facility] Comment:No E6 or E7 mRNA is detected from HPV types 16,18,31,33,35,39,45,51,52,56,58,59,66, and 68 by chief cloth finishing range operator mediated amplification. Papanicolaou smear specimen (specimen) CERVIX UTERI STRUCTURE / Unknown 12/21/2022 8:55 EDT 01/02/2023 11:40 EDT Prisca Gutierrez MD MICROBIOLOGY - GENER AL ORDERABLES [facility] [address] [place] [address] * PAP TEST (12/21/2022 8:55 EDT) Specimens A. Cervix and/or Endocervix , ThinPrep Imaging System with Manual Evaluation 01/03/2023 16:03 [facility] Specimen Adequacy Satisfactory for Evaluation - transformation zone component present 01/03/2023 16:03 [facility] General Categorization Negative for intraepithelial lesion or malignancy 01/03/2023 16:03 [facility] Attestation . 01/03/2023 16:03 [facility] at 1603 Clinical History See below 01/04/20 23 16:03 [facility] HPV The result for the Human Papillomavirus (HPV) Detection-High Risk Types is Negative. No E6 or E7 mRNA is detected from HPV types 16,18,31,33,35,39 ,45,51,52,56,58,5 9,66, and 68 by chief cloth finishing range operator mediated amplification.Rosa ting was performed on specimen [id number] and was resulted on 01/03/2023 1603 EDT by EDGAR, LAB INSTRUMENT RESULTS IN 01/03/2023 16:03 T [facility] Performing Lab [facility] 01/03/2023 16:03 [facility] Scanned Images 01/03/2023 16:03 [facility] Papanicolaou smear specimen (specimen) CERVIX UTERI STRUCTURE / Unknown 12/21/2022 8:55 EDT 12/24/2022 12:54 EDT Prisca Gutierrez MD PATHOLOGY ORDERABLES [facility] [address] [place] [address] documented in this encounter Visit Diagnoses Diagnosis Encounter for other general examination documented in this encounter Care Teams Sales Leader Relationship Specialty Start Date End Date Sher Lisa MD PCP - General 08/02/15 documented as of this encounter
--- OUTSIDE RECORDS SUMMARY | 2024-05-04 23:48 | XMS_ITS | Encounter Summary ---
Author Organization [facility] Address [address] [place] [address] Care Team Providers Care Senior Tax Specialist Name Role Phone Sher Lisa MD Primary Care Provider Unavailab le Encounter Details Date Type Department Care Team (Late st Contact Info) Description 01/15/2018 Results Only [facility] [phone] Prisca Ramirez MD [address] [phone] Social History Tobacco Use Types [...] Diagnosis Comments PAP TEST- RESULT ONLY Routine 01/15/2018 0:00 EDT documented in this encounter Results * PAP TEST- RESULT ONLY (01/15/2018 0:00 EDT) Pathology Report: CYTOPATHOLOGY REPORT Reports generated via electronic interface contain original data; however they are lacking the format of the original report. Caution should be taken when reading/interpreti ng unformatted reports. Name: ? MEHREEN PELAEZ ? Accession #: ? [id number] ? : ? 1970 (Age: 47) ??F ?Collect Date: ? 01/15/2018 ? Location: ? [facility] ? Receive Date: ? 01/16/2018 ? Provider: PRISCA RAMIREZ MD Copy to: ? Final Report SPECIMEN ADEQUACY ? Satisfactory for Evaluation - transformation zone component present - scant squamous epithelial component secondary to excessive blood GENERAL CATEGORIZATION ? Negative for Intraepithelial Lesion or Malignancy ?? Last Menstrual Period: 01/02/18 Specimen/Source: ??Pap Test, Cervix, ThinPrep Imaging System with manual evaluation Document reviewed and electronically signed by: ? [facility](ASCP) ? Report ??Date: 01/23/2018 10:58 HPV with Pap Test ? Date Ordered: ? 01/23/2018 ? Status: ?? Signed Out ?Date Complete: ? 01/24/2018 ? By: ??System Interface ? Date Reported: ? 01/24/2018 ? Interpretation RESULT: Negative for HPV. No E6 or E7 mRNA is detected from HPV types 16,18,31,33,35, 39,45,51,52,56,58, 59,66, and 68 by grain shipper mediated amplification. Comments Document reviewed and electronically signed by: ? System Interface ? Report date: 01/24/2018 By the signature above, the attending physician certifies that he/she has personally conducted a gross and/or microscopic examination of the described specimens and rendered or confirmed the above diagnosis. End of Report [facility] 01/15/2018 01/16/2018 Prisca Ramirez MD PATHOLOGY ORDERABLES [facility] [address] [place] [address] documented in this encounter Visit Diagnoses Not on filedocumented in this encounter Care Teams Senior Tax Specialist Relationship Specialty Start Date End Date Sher Lisa MD PCP - General 08/02/15 documented as of this encounter
--- OUTSIDE RECORDS SUMMARY | 2024-05-04 23:48 | XMS_ITS | Encounter Summary ---
Author Organization [facility] [address] Care Team Providers Care Biomedical Specialist Name Role Phone Prisca Gutierrez MD Primary Care Provider [phone] Encounter Details Date Type Department Care Team (Latest Contact Info) Description 02/07/2021 10:16 PM EDT - 02/07/2021 11:59 PM EDT [place] [phone] Discharge Disposition: Home Social History Tobacco Use Types Packs/Day Years Used Date Smoking Tobacco: Every Day Cigarettes 0.5 10 Smokeless Tobacco: Never Sex and Gender Information Value Date Recorded Sex Assigned at Not on file Gender Identity Not on file Sexual Orientation Not on file documented as of this encounter Medications at Time of Discharge Medication Sig Dispensed Refills Start Date End Date hydroCHLOROthiazide (Hydrodiuril) 25 mg Tablet Take 25 mg by mouth daily. 08/28/2022 amLODIPine (Norvasc) 5 mg Tablet Take 5 mg by mouth daily. 01/30/2022 halobetasol (ULTRAVATE) 0.05 % Ointment Apply twice daily to psoriasis 45 g 1 02/04/2020 12/20/2021 documented as of this encounter Plan of Treatment Not on file documented as of this encounter Procedures Procedure Name Priority Date/Time Associated Diagnosis Comments BCR-ABL1 (P210) BY RT-PCR, QUANTITATIVE Routine 02/07/2021 9:20 AM EDT documented in this encounter Results * BCR-ABL1 (p210) by RT-PCR, Quantitative (02/07/2021 9:20 AM EDT) BCR/ABL Report BCR-ABL1 Analysis by Quantitative RT-PCR INDICATION FOR STUDY: ??Disorder of white blood cells, Evaluate BCR-ABL1 status ANALYSIS: ??Quantitative assessment for the BCR-ABL1, p210 transcript SPECIMEN TYPE: ??Peripheral blood RESULTS: ??BCR-ABL1 p210 fusion transcript is NOT DETECTED. INTERPRETATION: The BCR-ABL1 fusion transcript is not present in this specimen or is below the limit of detection (0.002% BCR-ABL1 (IS)) for this assay. This result should be interpreted relative to any previous result(s) and in accordance with clinical findings. Continued serial monitoring with this method is appropriate if p210 BCR-ABL1 transcript was previously detected. This result does not exclude the p190 or other less common fusion transcripts; clinical correlation is recommended. METHODS: ??RNA from leukocytes is used in quantitative reverse transcriptase PCR (QuantiCX qPCR BCR-ABL IS Kit, [employer]ats) for the detection of the e13/a2 or e14/a2 major breakpoint BCR-ABL transcripts corresponding to the p210 fusion protein. This assay is validated to detect these fusion transcripts at concentrations as low as 0.002% BCR-ABL1 (IS) or a log reduction of 4.7 (MR4.7). LIMITATIONS AND DISCLAIMERS: ??This assay is designed to detect the h405-jweivhmmnm BCR-ABL1 transcripts (e13/a2 and e14/a2) only. This assay is not designed to detect p190 (e19/a2) or other less common BCR-ABL1 fusion transcripts. This test was developed and its performance characteristics determined by the [facility] at [facility]. It has not been cleared or approved by the FDA. The laboratory is regulated under CLIA as qualified to perform high-complexity testing. This test is used for clinical purposes. It should not be regarded as investigational or for research. [facility] Comment: [VERIFIED DATE]02.15.21 Verified By:Nayana PhD, Gray Nathan Molecular Pathologist (Electronic Signature) Blood Venous Draw / Unknown 02/07/2021 9:20 AM EDT 02/08/2021 7:53 AM EDT Narrative Resulting Agency Comment Spec In Lab Dr Angely Sims [place] [address] documented in this encounter Visit Diagnoses Not on filedocumented in this encounter Care Teams Biomedical Specialist Relationship Specialty Start Date End Date Prisca Gutierrez MD [address] [place] [address] PCP - General Family Medicine 01/30/18 documented as of this encounter
--- OUTSIDE RECORDS SUMMARY | 2024-05-04 23:48 | XMS_ITS | Clinical Summary ---
Author Organization Formerly [facility], 1928–1983 Address [facility] [place] [address] Care Team Providers Care Awning Craftsperson Name Role Phone Prisca Gutierrez MD Primary Care Provider [phone] Allergies Active Allergy Reactions Criticality Noted Date Comments Lisinopril 08/28/2019 Penicillins Low 08/28/2019 Other reaction(s): Skin Rash Medications Medication Sig Dispensed Refills Start Date End Date Status cetirizine (ZyrTEC) 10 mg Tablet Take 10 mg by mouth daily. 01/08/2022 Active amLODIPine (Norvasc) 10 mg Tablet Daily. Active cyclobenzaprine (Flexeril) 10 mg Tablet TAKE ONE TABLET BY MOUTH THREE TIMES A DAY NEEDED FOR MUSCLE SPASMS OF BACK 05/29/2022 Active metHOTREXate (TrexalL) 2.5 mg tablet Take six (6) tablets by mouth every week (15 mg) 30 tablet 1 12/27/2022 Active folic acid (Vitamin B9) 1 mg tablet Take one tablet by mouth every day except day of methotrexate dosing 90 tablet 3 12/27/2022 Active halobetasol (ULTRAVATE) 0.05 % Ointment Apply thin layer topically twice daily to psoriasis, as needed 45 g 2 07/01/2023 Active Active Problems Problem Noted Date Diagnosed Date History of malignant melanoma 02/20/2013 Rosacea 02/20/2013 Social History Tobacco Use Types Packs/Day Years Used Date Smoking Tobacco: Former Cigarettes 0.5 10 Smokeless Tobacco: Former Quit: 10/12/2021 Tobacco Cessation:Ready to Q uit: Yes Sex and Gender Information Value Date Recorded Sex Assigned at Not on file Gender Identity Not on file Sexual Orientation Not on file Last Filed Vital Signs Vital Sign Reading Time Taken Comments Blood Pressure 116/80 01/30/2022 8:39 AM EDT Pulse 80 01/30/2022 8:39 AM EDT Temperature 36.8 ??C (98.2 ??F) 01/26/2021 8:56 AM ED T Respiratory Rate 18 01/26/2021 8:56 AM EDT Oxygen Saturation 98% 01/30/2022 8:39 AM EDT Inhaled Oxygen Concentration - - Weight 108.9 kg (240 lb) 01/26/2021 8:56 AM EDT Height 165 cm (5' 4.96) 01/26/2021 8:56 AM EDT Body Mass Index 39.99 01/26/2021 8:56 AM EDT Plan of Treatment Health Maintenance Due Date Last Done Comments CT Colonography 1971 Colonoscopy 1971 Colorectal Cancer Screening 1971 FIT DNA 1971 FIT 1971 Sigmoidoscopy (10 year) with FIT yearly 1971 Sigmoidoscopy 1971 HIV screen 1989 Hepatitis C Screening 1989 Hepatitis B vaccine (0-59 yrs) (1) 1990 Tdap adult 1990 Tetanus vaccine 1990 HPV test 2001 PAP Smear 2001 Breast Cancer Share Decision Needed 2011 Breast Cancer screening 2011 Zoster vaccine (1 of 2) 2021 Covid-19 Vaccine (1 - 2022-24 season) 2023 Influenza (Flu) vaccine (1 o f 1 - Influenza standard series) 05/24/2024 Care Teams Awning Craftsperson Relationship Specialty Start Date End Date Prisca Gutierrez MD [address] [place] [address] PCP - General Family Medicine 01/30/18
--- OUTSIDE RECORDS SUMMARY | 2024-05-04 23:48 | XMS_ITS | Encounter Summary ---
Author Organization [facility] Address [address] [place] [address] Care Team Providers Care Yeast Culture Operator Name Role Phone Unavailable Primary Care Provider Unavailabl e Encounter Details Date Type Department Care Team (Late st Contact Info) Description 07/03/2002 Results Only [facility] [place] [address] [place] [address] Socorro Pressley MD [address] [place] [phone] Social History Tobacco Use Types Packs/Day Years Used Date Smoking Tobacco: Never Assessed Sex and Gender Information Value Date Recorded Sex Assigned at Not on file Gender Identity Not on file Sexual Orientation Not on file documented as of this encounter Plan of Treatment Not on file documented as of this encounter Procedures Procedure Name Priority Date/Time Associated Diagnosis Comments N.GONORRHOEAE PROBE Routine 07/03/2002 1 1:27 EDT CHLAMYDIA TRACHOMATIS PROBE Routine 07/03/2002 11:27 EDT documented in this encounter Results * CHLAMYDIA TRACHOMATIS PROBE (07/03/2002 11:27 EDT) Specimen Description Unknown [facility] Result No Chlamydia trachomatis DNA detected by table games dual rate supervisor mediated amplification. [facility] Report Status Final [id number] [facility] 07/03/2002 11:2 7 EDT 07/03/2002 11:27 EDT Socorro Pressley MD [facility] Performing Organization Address [facility] Co de Phone Number [facility] [address] [place] [address] * N.GONORRHOEAE PROBE (07/03/2002 11:27 EDT) Specimen Description Unknown [facility] Result No Neisseria gonorrhoeae DNA detected by table games dual rate supervisor mediated amplification. [facility] Report Status Final [id number] [facility] 07/03/2002 11:2 7 EDT 07/03/2002 11:27 EDT Socorro Pressley MD [facility] Performing Organization Address [facility] Co de Phone Number [facility] [address] [place] [address] documented in this encounter Visit Diagnoses Not on filedocumented in this encounter
--- OUTSIDE RECORDS SUMMARY | 2024-05-04 23:48 | XMS_ITS | Encounter Summary ---
Author Organization [facility] Address [address] [place] [address] Care Team Providers Care Label Cutter Name Role Phone Sher Lisa MD Primary Care Provider Unavailab le Encounter Details Date Type Department Care Team (Late st Contact Info) Description 12/06/2021 Lab Requisition [facility] Pathology & Laboratory Medicine - [address] [address] Outr Resulting Lab, Provider Social History Tobacco [...] Procedure Name Priority Date/Time Associated Diagnosis Comments HIV 1/2 ANTIGEN AND ANTIBODY, 4TH GENERATION Routine 12/06/2021 8:25 EDT documented in this encounter Results * HIV 1/2 ANTIGEN AND ANTIBODY, 4TH GENERATION (12/06/2021 8:25 EDT) HIV 1 and 2 Antibody/p24 Antigen, 4th Generation Negative Negative 12/07/2021 9:50 EDT [facility] Comment:If acute HIV-1 infec tion is suspected in a high risk patient, submit plasma specimen for HIV-1 RNA quantitation test. Blood VENOUS BLOOD / Unknown 12/06/2021 8:25 EDT 12/06/2021 21:25 EDT Narrative [facility] - 12/07/2021 9:50 EDT Fourth Generation assay performed on the Siemens Centaur XPT. Provider Outr Resulting Lab IMMUNOLOGY A ND SEROLOGY ORDERABLES [facility] [address] [place] [address] documented in this encounter Visit Diagnoses Not on filedocumented in this encounter Care Teams Label Cutter Relationship Specialty Start Date End Date Sher Lisa MD PCP - General 08/02/15 documented as of this encounter
--- OUTSIDE RECORDS SUMMARY | 2024-05-04 23:48 | XMS_ITS | Encounter Summary ---
[place] [address] Care Team Providers Care Booth Operator Name Role Phone Prisca Gutierrez MD Primary Care Provider [phone] Encounter Details Date Type Department Care Team (Late st Contact Info) Description 07/20/2022 Refill Dermatology at [address] [place] [address] Alicia Guzman, RN Social History Tobacco Use Types Packs/Day [...] on filedocumented in this encounter Care Teams Booth Operator Relationship Specialty Start Date End Date Prisca Gutierrez MD [address] [place] [address] [address] [place] [address] PCP - General Family Medicine 01/30/18 documented as of this encounter
--- OUTSIDE RECORDS SUMMARY | 2024-05-04 23:48 | XMS_ITS | Encounter Summary ---
[place] [address] Care Team Providers Care Director Of Casework Name Role Phone Prisca Gutierrez MD Primary Care Provider [phone] Encounter Details Date Type Department Care Team (Late st Contact Info) Description 02/04/2020 Refill Dermatology at [address] [place] [address] Jane Cardenas, CUSTOMER SERVICES SUPERVISOR Social History Tobacco Use Types Packs/Day Years [...] on filedocumented in this encounter Care Teams Director Of Casework Relationship Specialty Start Date End Date Prisca Gutierrez MD [facility] [address] [place] [address] PCP - General Family Medicine 01/30/18 documented as of this encounter
--- OUTSIDE RECORDS SUMMARY | 2024-05-04 23:48 | XMS_ITS | Encounter Summary ---
[place] [address] Care Team Providers Care Work Force Advisor Name Role Phone Prisca Gutierrez MD Primary Care Provider [phone] Reason for Visit * Reason Comments Follow-up Skin Check * Consultation (Routine) - Specialty Diagnoses / Procedures Referred By Contac t Referred To Contact Dermatology Diagnoses Rash and other nonspecific skin eruption Rash Procedures Consult Prisca Gutierrez MD [address] [place] [address] [address] Ronnie Marroquin MD [address] [place] [address], [facility] [place] [address] Referral ID Status Reason Start Date Expiration Date V isits Requested Visits Authorized [id number] 01/07/2018 01/07/2019 1 1 Encounter Details Date Type Department Care Team (Late st Contact Info) Description 01/30/2018 4:15 PM EDT Office Visit Dermatology at [address] [place] [address] Ronnie Marroquin MD [address] [facility], [facility] [place], [place] [id number] Psoriasis Social History Tobacco Use Types Packs/Day Years Used Date Smoking Tobacco: Unknown Smokeless Tobacco: Never Sex and Gender Information Value Date Recorded Sex Assigned at Not on file Gender Identity Not on file Sexual Orientation Not on file documented as of this encounter Progress Notes * Ronnie Marroquin MD - 01/30/2018 4:15 PM EDT Problem: 1. Right lateral foot dermatitis 2. History of malignant melanoma, right medial breast, excised by Dr. Mae in [place] 2001 3. Patient is a 10 years in [place] follows up and for about a year has had a non-itchy relatively asymptomatic dermatitis in theright lateral foot. Dr. Gutierrez prescribed clobetasol cream to patient used twice daily faithfully for about 2 months without benefit. The patient is not aware of any family history of psoriasis. She has no stigmata of psoriasis or other rash sites on her body except she does have a small patch she says on her right medial ankle above where she had a blood clot. The patient knows that this seemed to start after a bad pedicure and after injuring her foot against a prickly plant in her yard abouta year ago while wearing flip-flops Physical examination was a pleasant 47-year-old woman who has a ovoid elongated hyperkeratotic psoriatic plaque on the right lateral aspect of her foot. She has a dime size plaque of psoriasis a relatively thin plaque on the right left medial calf. She has no other stigmata of psoriasis. Assessment plan: Psoriasis, right lateral foot 1. Advance from clobetasol cream to ointment applying on a twice daily basis after for soaking the foot in water for 5-10 minutes, or as an alternative to soaking after a shower. We will call in a 30gm tube of clobetasol to her right aid in [place] with 1 refill. 2. Dry skin, then apply clobetasol and then use tape occlusion to beater engineer helper in the penetration of clobetasol into the psoriasis with a thick hyperkeratotic plaque. Once plaque has resolved then discontinue clobetasol. 3. Recommend return to clinic in 1 month for repeat check. May cancel if doing well. Cc: Prisca Gutierrez MD documented in this encounter Plan of Treatment Not on file documented as of this encounter Visit Diagnoses Diagnosis Psoriasis Other psoriasis documented in this encounter Care Teams Work Force Advisor Relationship Specialty Start Date End Date Prisca Gutierrez MD [facility] [address] [place] [address] PCP - General Family Medicine 01/30/18 documented as of this encounter
--- OUTSIDE RECORDS SUMMARY | 2024-05-04 23:48 | XMS_ITS | Encounter Summary ---
Author Organization [facility] Address [facility] [place] [address] Care Team Providers Care Assistant Passenger Locomotive Engineer Name Role Phone Prisca Gutierrez MD Primary Care Provider [phone] Reason for Visit * Consultation (Routine) - Specialty Diagnoses / Procedures Referred By Quentin [email or web address] Referred To Contact Hematology and Oncology Diagnoses Essential (hemorrhagic) thrombocythemia Prisca Gutierrez MD [address] [place] [address] [address] [facility] Hem Onc Office [address] [place] [phone] Referral ID Status Reason Start Date Expiration Date V isits Requested Visits Authorized [id number] Consult, [facility] PCP Updated and/or Approved 10/14/2020 04/13/2021 6 6 Encounter Details Date Type Department Care Team (Late st Contact Info) Description 01/26/2021 9:00 AM EDT Office Visit Hematology/Oncology at [address] [phone] Chintan Lozano MD [facility] [address] [place] [address] Kirsty Alvarez APRN [address] [place] [address] [place] [address] Thrombocytosis; Elevated hematocrit; Neutrophilia Social History Tobacco Use Types Packs/Day Years Used Date Smoking Tobacco: Every Day Cigarettes 0.5 10 Smokeless Tobacco: Never Tobacco Cessation:Ready to Q uit: Yes Sex and Gender Information Value Date Recorded Sex Assigned at Not on file Gender Identity Not on file Sexual Orientation Not on file documented as of this encounter Last Filed Vital Signs Vital Sign Reading Time Taken Comments Blood Pressure 146/106 01/26/2021 8:56 AM EDT Pulse 85 01/26/2021 8:56 AM EDT Temperature 36.8 ??C (98.2 ??F) 01/26/2021 8:56 AM ED T Respiratory Rate 18 01/26/2021 8:56 AM EDT Oxygen Saturation 100% 01/26/2021 8:56 AM EDT Inhaled Oxygen Concentration - - Weight 108.9 kg (240 lb) 01/26/2021 8:56 AM EDT Height 165 cm (5' 4.96) 01/26/2021 8:56 AM EDT Body Mass Index 39.99 01/26/2021 8:56 AM EDT documented in this encounter Progress Notes * Chintan Lozano MD - 01/26/2021 9:00 AM EDT Subjective: Patient ID: Dean Amezcua is a 50 y.o. female. HPI The patient is a 50-year-old female who is referred to the [facility] for consultation regarding slater cytosis. She is referred by Dr. Prisca Gutierrez I have had a chance to review the available records and interview and examine the patient. She is apleasant 50-year-old female. She is a smoker but is considering quitting. She also is somewhat overweight. She has hypertension and is being evaluated for potential sleep apnea. We are asked to evaluate her because of her abnormal blood counts. She has had mild elevations of her white count, hemoglobin and platelet count dating back over the last 4 years. Her most recent CBC from 10/06/2020 showed a white count of 11.1, hemoglobin 15.2, hematocrit 46.1, platelets of 428. Over the last 4 years her highest white count has been 15.2. Principally she had an elevation of her neutrophils. Her hematocrit has ranged from 43 up to 47. Her platelet count has ranged from 369 up to 575. She doesn't have any real symptoms related to these counts. She did have a superficial thrombophlebitis a few years ago and was treated with a short course of Eliquis. No deep vein thrombosis. She does not have itching after she showers. She does not have early satiety. There is no history of exposures to toxins chemicals or radiation. Patient Active Problem List Diagnosis Code ??? History of malignant melanoma Z85.820 ??? Rosacea L71.9 Also history of hypertension, benign adrenal mass, prediabetes and potential sleep apnea Current Outpatient Medications: ??? hydroCHLOROthiazide (Hydrodiuril) 25 mg Tablet, Take 25 mg by mouth daily., Disp: , Rfl: ??? amLODIPine (Norvasc) 5 mg Tablet, Take 5 mg by mouth daily., Disp: , Rfl: ??? halobetasol (ULTRAVATE) 0.05 % Ointment, Apply twice daily to psoriasis, Disp: 45 g, Rfl: 1 Allergies Allergen Reactions ??? 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 HENT: Negative for nosebleeds. Respiratory: Negative for cough and shortness of breath. Cardiovascular: Negative for chest pain and palpitations. Gastrointestinal: Negative for abdominal pain and diarrhea. Musculoskeletal: Negative for back pain. Skin: Negative for rash. Neurological: Negative for speech difficulty. Hematological: Negative for adenopathy. Does not bruise/bleed easily. All other systems reviewed and are negative. Objective: Physical Exam Constitutional: General: She is not in acute distress. HENT: Mouth/Throat: Pharynx: No oropharyngeal exudate. Eyes: General: No scleral icterus. Cardiovascular: Rate and Rhythm: Normal rate and regular rhythm. Heart sounds: Normal heart sounds. Pulmonary: Effort: Pulmonary effort is normal. Breath sounds: Normal breath sounds. No wheezing. Abdominal: General: Bowel sounds are normal. Palpations: Abdomen is soft. There is no mass. Tenderness: There is no abdominal tenderness. Lymphadenopathy: Cervical: No cervical adenopathy. Skin: Findings: No rash. Neurological: Mental Status: She is alert and oriented to person, place, and time. Assessment and Plan: 50-year-old female with a persistent mild elevation of white count, red count and platelets dating back over the last 4 years. Of note the elevations in these counts have been persistent but not progressive. She does not have palpable splenomegaly or other symptoms. The main differential is whether this elevation of her counts is reactive versus a primary myeloproliferative neoplasm. In terms of primary myeloproliferative neoplasms she could have early stage polycythemia vera or potentially even CML. Both of these can be detected on peripheral blood with molecular markers for BCR/ABL or JA K-2 mutation. This should apple picker 90 to 95% of all cases of P vera or CML. My recommendation is to send these tests as well as a repeat CBC and a serum erythropoietin level. This should give us a pretty accurate description whether she has an intrinsic marrow disorder such as a myeloproliferative neoplasm. I don't think her counts are severe enough to warrant a bone marrow aspirate and biopsy. My gut feeling though is that her counts are reactive. I suspect she probably does have sleep apnea. Also smoking is known to increase in inflammatory signal in be associated with a slight increase in neutrophils. I took the opportunity to encourage her to stop smoking and to get her sleep studies to be sure if she does have sleep apnea that that gets treated. At this point I don't think she needs close hematologic follow-up especially if her molecular studies are negative. I will update this note once those reports are back but would recommend she follow-up with her primary care doctor and have a repeat CBC 6 to 12 months after she stops smoking and hasher sleep apnea evaluated and treated. The patient is in agreement with these plans Thank you for allowing me to participate in her care * Siobhan Lopez RN - 01/26/2021 9:00 AM EDT MEDICAL ONCOLOGY INITIAL NURSING ASSESSMENT ADVANCE DIRECTIVES: In EDH [ ] Has documents [ ] Will bring in [ ] Does not have IF NO: Advance Directive pamphlet provided : Referral to Care Management : PRESENTING SYSTEMS and PATHOLOGY: as per Dr. Lozano REVIEW OF SYSTEMS: as per Dr. Lozano Prior Radiotherapy: no[ x ] Yes[ ]Site Date Facility Prior Chemotherapy: no[ x ] Yes[ ] Drug: Oncologist- LastTreatment: NO: YES: Claustrophobia or requires sedation for MRIs x Allergy to CT or MRI contrast agent or iodine or shellfish x Diabetic and on metformin x Metal in body, implanted device, worked with metal, body piercings,braces x Dentures or hearing device x Pacemaker x Difficulty breathing while lying flat x Kidney problems/creatinine x Balance difficulty: [ x ]no [ ]yes At risk for fall: [ x ] no [ ] yes If yes, actions implemented to prevent fall. Patient/family instructed to avoid independent ambulation. Use wheelchair and ask for assistance of staff while in the clinic. ADL [ x ] no limits [ ] needs dressing assistance [ ] needs meal assistance Assistive device:[x ]none [ ]cane [ ]walker [ ]wheelchair [ ]other: explain PAIN ASSESSMENT: [ ] out of 10 Location: Description: [ ] Dull [ ] Sharp [ ] Burning [ ] Throbbing [ ] Radiating [ ] Continuous [ ]Intermittent Aggravating Factors: [ ] Movement [ ] Position [ ]Immobility [ ]Other Alleviating Factors: [ ]Medication [ ] Positioning [ ] Other Current Pain Management Plan: [ ]Satisfied [ ] Not satisfied SOCIAL ASSESSMENT: See EDH social assessment information entered. Support Systems: transportation plan: x[ ]private vehicle [ ] RCT needs Social Work referral [ ] Unknown at this time needs Social Work referral Barriers to treatment: none Referrals/Interventions: follow up labs LEARNING STYLE: Visual and verbal, wants written material and verbal discussion. TEACHING: __ NCI ???Chemotherapy and You?? and folder given . NA __ Specific chemotherapy literature provided and reviewed with patient. NA documented in this encounter Plan of Treatment Not on file documented as of this encounter Visit Diagnoses Diagnosis Thrombocytosis Essential thrombocythemia Elevated hematocrit Other hemoglobinopathies Neutrophilia Other specified disease of white blood cells documented in this encounter Care Teams Assistant Passenger Locomotive Engineer Relationship Specialty Start Date End Date Prisca Gutierrez MD Licha L[address]PEZ [address] [place] [id number] PCP - General Family Medicine 01/30/18 documented as of this encounter
--- OUTSIDE RECORDS SUMMARY | 2024-05-04 23:48 | XMS_ITS | Encounter Summary ---
Author Organization [facility] [place] [address] Care Team Providers Care Link Trainer Maintenance Man Name Role Phone Prisca Gutierrez MD Primary Care Provider [phone] Reason for Visit * Reason Onset Date Comments Follow-up 02/02/2021 Encounter Details Date Type Department Care Team (Late st Contact Info) Description 02/02/2021 Telephone Hematology/Oncology at [address] [phone] Cristel Bajwa RN Follow-up Social History Tobacco Use Types Packs/Day Years Used Date Smoking Tobacco: Every Day Cigarettes 0.5 10 Smokeless Tobacco: Never Sex and Gender Information Value Date Recorded Sex Assigned at Not on file Gender Identity Not on file Sexual Orientation Not on file documented as of this encounter Miscellaneous Notes * Telephone Encounter - Cristel Bajwa RN - 02/02/2021 10:46 AM EDT Pt was suppose to get blood work for Dr. Lozano, none done at [facility] or [facility] leb. Called pt and leftmessage for her to call us when she gets this done. documented in this encounter Plan of Treatment Not on file documented as of this encounter Visit Diagnoses Not on filedocumented in this encounter Care Teams Link Trainer Maintenance Man Relationship Specialty Start Date End Date Prisca Gutierrez MD [address] [place] [address] [address] [place], [place] [id number] PCP - General Family Medicine 01/30/18 documented as of this encounter
--- OUTSIDE RECORDS SUMMARY | 2024-05-04 23:48 | XMS_ITS | Encounter Summary ---
[facility] [place] [address] Care Team Providers Care Planning Coordinator Name Role Phone Prisca Gutierrez MD Primary Care Provider [phone] Encounter Details Date Type Department Care Team (Latest Contact Info) Description 08/28/2022 Travel Social History Tobacco Use Types Packs/Day Years [...] on filedocumented in this encounter Care Teams Planning Coordinator Relationship Specialty Start Date End Date Prisca Gutierrez MD [facility] [address] [place] [address] PCP - General Family Medicine 01/30/18 documented as of this encounter
--- OUTSIDE RECORDS SUMMARY | 2024-05-04 23:48 | XMS_ITS | Encounter Summary ---
Author Organization [facility] Address [address] [place] [address] Care Team Providers Care Bulb Tester Name Role Phone Unavailable Primary Care Provider Unavailabl e Encounter Details Date Type Department Care Team (Late st Contact Info) Description 07/03/2002 19:33 EDT Hospital Encounter [facility] - Other [address] [place] [address] Socorro Gutierres MD [address] [place] [phone] Unknown, Provider, Social History Tobacco Use Types Packs/Day Years Used Date Smoking Tobacco: Never Assessed Sex and Gender Information Value Date Recorded Sex Assigned at Not on file Gender Identity Not on file Sexual Orientation Not on file documented as of this encounter Plan of Treatment Not on file documented as of this encounter Procedures Procedure Name Priority Date/Time Associated Diagnosis Comments SURGICAL PATHOLOGY Routine 07/03/2002 0:00 EDT documented in this encounter Results * SURGICAL PATHOLOGY (07/03/2002 0:00 EDT) Pathology Report: SURGICAL PATHOLOGY REPORT Reports generated via electronic interface contain original data; however they are lacking the format of the original report. Caution should be taken when reading/interpreti ng unformatted reports. Name: ? MEHREEN PELAEZ ? Accession #: ? [id number] ? : ? 1970 (Age: 32) ??F ? Collect Date: ? 07/03/2002 ? Location: ? [facility] ? Receive Date: ? 07/03/2002 ? Provider: SOCORRO GUTIERRES MD Copy to: ? Final Pathologic Diagnosis: ? Skin of thigh, right upper medial, shave biopsy: - Acrochordon. Document reviewed and electronically signed by: Jono Ansari MD Report ??Date: 07/06/2002 17:00 By the signature above, the attending physician certifies that he/she has personally conducted a gross and/or microscopic examination of the described specimens and rendered or confirmed the above diagnosis. Specimen(s) Received: ? Skin tag R upper medial thigh Clinical History: ? Skin tag/mole; clinical diagnosis code: 631 Gross Description: ? Received in formalin labelled Karolina-Samira is a 0.5 x 0.3 x 0.2 cm shave biopsy of a bosselated delgado-white papule. ??The specimen is bisected and submitted entirely in one cassette. ??(Yissel Martinez/jocelin End of Report DIRK HERNANDEZ 07/03/2002 07/03/2002 15: 42 EDT Socorro Gutierres MD PATHOLOGY ORDERABLE S DIRK [address] [place] [address] documented in this encounter Visit Diagnoses Not on filedocumented in this encounter
--- OUTSIDE RECORDS SUMMARY | 2024-05-04 23:48 | XMS_ITS | Encounter Summary ---
Author Organization [facility] Address [address] [place] [address] Care Team Providers Care Landing Support Specialist Name Role Phone Unavailable Primary Care Provider Unavailabl e Encounter Details Date Type Department Care Team (Late st Contact Info) Description 10/30/2001 21:32 EST Hospital Encounter [facility] - Other [address] [place] [address] Nelson Guerar MD [address] [facility], [address] [place] [phone] Unknown, Provider, Discharge Disposition: Auto Discharge Social History Tobacco Use Types Packs/Day Years Used Date Smoking Tobacco: Never Assessed Sex and Gender Information Value Date Recorded Sex Assigned at Not on file Gender Identity Not on file Sexual Orientation Not on file documented as of this encounter Discharge Disposition Disposition Code Departure Means Destination Auto Discharge documented in this encounter Plan of Treatment Not on file documented as of this encounter Procedures Procedure Name Priority Date/Time Associated Diagnosis Comments CYTOPATHOLOGY Routine 10/30/2001 0:00 EST documented in this encounter Results * CYTOPATHOLOGY (10/30/2001 0:00 EST) Pathology Report: CYTOPATHOLOGY REPORT Reports generated via electronic interface contain original data; however they are lacking the format of the original report. Caution should be taken when reading/interpreti ng unformatted reports. Name: ? MEHREEN PELAEZ ? Accession #: ? [id number] : ? 1970 (Age: 31) ??F ?Collect Date: ? 10/30/2001 Location: ? [facility] ? Receive Date: ? 10/31/2001 Provider: ?NELSON GUERRA MD Copy to: ? Specimen/Source: ?ThinPrep Pap Test, Cervix/Endocervix Last Menstrual Period: ? 10/17/01 Previous Gynecologic Pathology: ? Yes Treatment History: ? LEEP: 1994 Other: ? Additional clinical information: Normal paps since 1993 HPVA - HPV testing requested if ASC-US on the current ThinPrep Pap test. ? SPECIMEN ADEQUACY ? Satisfactory for Evaluation - transformation zone component present GENERAL CATEGORIZATION ? Negative for Intraepithelial Lesion or Malignancy INTERPRETATION ? Fungal organisms present morphologically consistent with Traci species. ? Document reviewed and electronically signed by: ? JOHN Mckeon(ASCP) ? Report Date: ??11/05/2001 10:57 End of Report DIRK HERNANDEZ 10/30/2001 10/31/2001 Nelson Guerra MD PATHOLOGY ORDERABL ES [address]K [address] [place] [address] documented in this encounter Visit Diagnoses Not on filedocumented in this encounter
--- OUTSIDE RECORDS SUMMARY | 2024-05-04 23:48 | XMS_ITS | Encounter Summary ---
Author Organization [facility] Address [address] [place] [address] Care Team Providers Care Waist Fitter Name Role Phone Sher Lisa MD Primary Care Provider Unavailab le Encounter Details Date Type Department Care Team (Late st Contact Info) Description 01/29/2020 Lab Requisition [facility] [address] [place] [address] Outr Resulting Lab, Provider Social History Tobacco [...] Procedure Name Priority Date/Time Associated Diagnosis Comments ZZCOVID-19 TEST [facility] PCR Today 01/29/2020 11:30 EDT COVID-19 TESTING Routine 01/29/2020 11:3 0 EDT documented in this encounter Results * COVID-19 TEST [facility] PCR (01/29/2020 11:30 EDT) Swab ENTIRE NASOPHARYNX / Unknown 01/29/2020 11:30 EDT 01/31/2020 16:08 EDT Narrative [facility] - 02/01/2020 15:47 EDT Delay in testing. Potential for false negative results. Provider Outr Resulting Lab MICROBIOLOGY - GENERAL ORDERABLES [facility] [address] [place] [address] * COVID-19 TESTING (01/29/2020 11:30 EDT) COVID-19 rt-PCR Result Negative Negative 02/01/2020 15:47 EDT [facility] Comment: Delay in testing. Potential for false negative results. Negative results do not preclude 2019-nCoV infection and should not be used as the sole basis for treatment or other patient management decisions. Negative results must be combined with clinical observations, patient history, and epidemiological information. This test was developed and its performance characteristics determined by [facility]. It has not been cleared or approved by the US Food and Drug Administration. FDA does not require this test to go through premarket FDA review. This test is used for clinical purposes. It should not be regarded as investigational or for research. This laboratory is certified under the Clinical Laboratory Improvement Amendments (CLIA) as qualified to perform high complexity clinical laboratory testing. This test is based on the CDC COVID-19 Emergency Use Authorization (EUA) assay, with minor modification as defined by the FDA Performed on the [employer] Fast. Performing Lab [facility] 02/01/2020 15:47 EDT [facility] Swab ENTIRE NASOPHARYNX / Unknown 01/29/2020 11:30 EDT 01/31/2020 16:08 EDT Provider Outr Resulting Lab MICROBIOLOGY - GENERAL ORDERABLES [facility] [address] [place] [address] documented in this encounter Visit Diagnoses Not on filedocumented in this encounter Care Teams Waist Fitter Relationship Specialty Start Date End Date Sher Lisa MD PCP - General 08/02/15 documented as of this encounter
--- OUTSIDE RECORDS SUMMARY | 2024-05-04 23:48 | XMS_ITS | Clinical Summary ---
Author Organization [facility] Address [address] [place] [address] Care Team Providers Care Classifier Operator Name Role Phone Sher Lisa MD Primary Care Provider Unavailab le Social History Tobacco Use Types Packs/Day Years Used Date Smoking Tobacco: Never Assessed Sex and Gender Information Value Date Recorded Sex Assigned at Not on file Gender Identity Not on file Sexual Orientation Not on file Plan of Treatment Health Maintenance Due Date Last Done Comments Hepatitis B Vaccine (1 of 3 - 19+ 3-dose series) 05/14 COVID-19 Vaccine ( season) 2023 Hepatitis C Screen Completed 12/06/2021 Procedures Procedure Name Priority Date/Time Associated Diagnosis Comments HEPATITIS C AB W REFLEX TO HCV RNA BY PCR Routine 12/06/2021 8:25 EDT from Last 3 Months or Most Recently Relevant to Health Maintenance Results * HEPATITIS C AB W REFLEX TO HCV RNA BY PCR (12/06/2021 8:25 EDT) Hep C Antibody Negative Negative 12/07/2021 9:38 EDT [facility] Blood VENOUS BLOOD / Unknown 12/06/2021 8:25 EDT 12/06/2021 21:26 EDT Provider Outr Resulting Lab CHEMISTRY & BLOOD GAS ORDERABLES [facility] [address] [place] [address] from Last 3 Months or Most Recently Relevant to Health Maintenance Care Teams Classifier Operator Relationship Specialty Start Date End Date Sher Lisa MD PCP - General 08/02/15
--- OUTSIDE RECORDS SUMMARY | 2024-05-04 23:48 | XMS_ITS | Encounter Summary ---
Author Organization [facility] [place] [address] Care Team Providers Care Quality Control Name Role Phone Prisca Gutierrez MD Primary Care Provider [phone] Reason for Visit * Reason Comments Follow-up Skin Check * Consultation (Routine) - Closed Specialty Diagnoses / Procedures Referred By Contac t Referred To Contact Dermatology Diagnoses Psoriasis, unspecified Psoriasis on Feet; Est. Patient-Notes Received Procedures Consult Prisca Gutierrez MD [facility] MOLLY ANDRADE [address] [address] Ronnie Marroquin MD [address] [facility], [place] [address] Referral ID Status Reason Start Date Expiration Date Visits Re quested Visits Authorized [id number] Closed 01/19/2021 01/19/2022 1 1 Encounter Details Date Type Department Care Team (Late st Contact Info) Description 02/28/2021 9:45 AM EDT Office Visit Dermatology at [address] [phone] Ronnie Marroquin MD [address] [facility], MARIBEL Nathan DERMATOLOGY [place], [place] [id number] Poikiloderma of Ulissesatte; Acrcory Social History Tobacco Use Types Packs/Day Years Used Date Smoking Tobacco: Every Day Cigarettes 0.5 10 Smokeless Tobacco: Never Sex and Gender Information Value Date Recorded Sex Assigned at Not on file Gender Identity Not on file Sexual Orientation Not on file documented as of this encounter Progress Notes * Ronnie Marroquin MD - 02/28/2021 9:45 AM EDT Problem: 1. 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 ??History of malignant melanoma, right medial breast, excised by Dr. Mae in [place] 2001 3. 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 4. Cigarette smoker, 1/2 pack a day 5. History of rosacea previously treated with metronidazole 0.75% gel. Dean follows up for a repeat check. The psoriasiform psoriasis on the lateral and medial aspects of her feet is much better using the halobetasol ointment on an as needed basis. She has noted a pauline her neck. She has some skin tags. She does have a general skin checkup. We last communicated with each other via a telehealth telephone visit in January 2020. 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 She has tags present 1 the left and 1 in the right lateral base of her neck, and 1 on the right lower abdomen.She has no evidence of recurrent pigmentation at the melanoma excision site and the benign examination of the head and the neck the chest to the back the hands the arms and the forearms. Her telangiectatic rosacea is well covered and hidden by her make-up. She only has minimal erythema remaining atthe patches of her psoriasiform dermatitis on the medial and lateral aspects of of her feet. Assessment and plan: Psoriasis, psoriasiform dermatitis, right and left medial feet 1. Patient is planning on quitting smoking this year on her birthday [birth year] 2. Discussed how this will likely help the rash. 3. Continue as needed use of halobetasol ointment on an as needed basis. Will refill when she needsit. 4. Discussed psoriasis etiology pathogenesis etc. Poikiloderma of Jorge A 1. Patient reassured 2. No treatment necessary Skin tags 1. 3 sites were anesthetized and removed with electrodesiccation. 2. Indication for the removal is that these are often caught and rubbed by collars/jewelry/chains etc. History of malignant melanoma right medial breast 1. No evidence of recurrence 2. Patient should have benign skin examination 3. We will continue once yearly skin checkups. CC: Prisca Gutierrez MD documented in this encounter Plan of Treatment Not on file documented as of this encounter Visit Diagnoses Diagnosis Poikiloderma of [place] Other dyschromia Acrochordon Unspecified hypertrophic and atrophic condition of skin documented in this encounter Care Teams Quality Control Relationship Specialty Start Date End Date Prisca Gutierrez MD [address] [place] [address] [address] [place] [address] PCP - General Family Medicine 01/30/18 documented as of this encounter
--- OUTSIDE RECORDS SUMMARY | 2024-05-04 23:48 | XMS_ITS | Encounter Summary ---
Author Organization [facility] [place] [address] Care Team Providers Care Counseling Specialist Name Role Phone Prisca Gutierrez MD Primary Care Provider [phone] Reason for Visit * Reason Comments Skin Check Encounter Details Date Type Department Care Team (Late st Contact Info) Description 08/28/2022 4:15 PM EST Office Visit Dermatology at [address] [phone] Ronnie Marroquin MD [address] [place] [address], [place] [address] Psoriasis Social History Tobacco Use Types Packs/Day Years Used Date Smoking Tobacco: Former Cigarettes 0.5 10 Smokeless Tobacco: Former Quit: 10/12/2021 Sex and Gender Information Value Date Recorded Sex Assigned at Not on file Gender Identity Not on file Sexual Orientation Not on file documented as of this encounter Progress Notes * Ronnie Marroquin MD - 08/28/2022 4:15 PM EST Problem: 1. 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 ??History of malignant melanoma, right medial breast, excised by Dr. Mae in [place] 2001 3. 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 4. ??Cigarette smoker, 1/2 pack a day 5. History of rosacea previously treated with metronidazole 0.75% gel. ?? Dean follows up after last being seen in February of last year. Unfortunately her pustular psoriasis is worse. She now has some involvement also on the palmar hands as well as on the soles of her feet. She did quit smoking for a period of about 4 months but then started back up again. She is not sure whether or not that had any positive effect and improved her psoriasis or not. The palmar involvement is new for her. Physical examination reveals a pleasant 52-year-old woman who does have pustular psoriasis of the palmar hands and of his soles of her feet. She been applying halobetasol cream. She has benign examination of the face and neck the chest the back the hands the arms of forearms the thighs and the calves. Assessment plan: Psoriasis pustular left and right medial feet and now on palms of hands as well 1. Palmar hand involvement is mild but new 2. Discussed the option of methotrexate but patient prefers to quit smoking again and see how she does with after that. 3. Instead continue halobetasol ointment applying on a daily basis now also starting to apply to hands as well 4. Return to clinic in 2 months for repeat check. History of malignant melanoma right medial breast 1. Patient was reassured about her benign examination today. 2. Recommend that she continue to be seen on a yearly basis for skin checkups. CC: Prisca Gutierrez MD documented in this encounter Plan of Treatment Not on file documented as of this encounter Visit Diagnoses Diagnosis Psoriasis Other psoriasis documented in this encounter Care Teams Counseling Specialist Relationship Specialty Start Date End Date Prisca Gutierrez MD [facility] [address] [place] [address] PCP - General Family Medicine 01/30/18 documented as of this encounter
--- OUTSIDE RECORDS SUMMARY | 2024-05-04 23:48 | XMS_ITS | Encounter Summary ---
Author Organization [facility] [place] [address] Care Team Providers Care Replanter Name Role Phone Prisca Gutierrez MD Primary Care Provider [phone] Encounter Details Date Type Department Care Team (Late st Contact Info) Description 12/27/2022 Telephone Dermatology at [address] [phone] Jane Cardenas LPN Social History Tobacco Use Types Packs/Day Years Used Date Smoking Tobacco: Former Cigarettes 0.5 10 Smokeless Tobacco: Former Quit: 10/12/2021 Sex and Gender Information Value Date Recorded Sex Assigned at Not on file Gender Identity Not on file Sexual Orientation Not on file documented as of this encounter Miscellaneous Notes * Telephone Encounter - Jane Cardenas LPN - 12/27/2022 5:42 PM EDT Last visit 08/28/22 Patient wants to begin taking MTX. Currently applying halobetasol ointment to feet and hands. Requesting refill. She will be leaving for [place] in two weeks and staying for two weeks. She is stillsmoking. The bottoms of her feet and hands are worse. Reviewed with Dr. Marroquin. Approval to begin MTX, Folic Acid and will refill halobetasol. Patient will need a follow up appointment when she returns along with Labs prior to appointment. Attempted to call patient. Patient unavailable. Message left. When patient returns call. Review how to take medications, fill out lab sheet and send to facility requested by patient. documented in this encounter Plan of Treatment Not on file documented as of this encounter Visit Diagnoses Not on filedocumented in this encounter Care Teams Replanter Relationship Specialty Start Date End Date Prisca Gutierrez MD [address] [place] [address] PCP - General Family Medicine 01/30/18 documented as of this encounter
--- OUTSIDE RECORDS SUMMARY | 2024-05-04 23:48 | XMS_ITS | Encounter Summary ---
[place] [address] Care Team Providers Care Admissions Advisor Name Role Phone Prisca Gutierrez MD Primary Care Provider [phone] Encounter Details Date Type Department Care Team (Late st Contact Info) Description 01/30/2018 Refill Dermatology at [address] [place] [address] Jane Cardenas, MILIEU COUNSELOR Social History Tobacco Use Types Packs/Day Years [...] on filedocumented in this encounter Care Teams Admissions Advisor Relationship Specialty Start Date End Date Prisca Gutierrez MD [facility] MO[address] [place] [address] PCP - General Family Medicine 01/30/18 documented as of this encounter
== END 2024-05-04 23:46 | disposition home or self-care (01) ==
LOC: NCHCN 23:45
PROVIDERS: PCP Family Medicine; Visit Provider Family Medicine
DX: I10 Essential (primary) hypertension (principal); R73.03 Prediabetes
CPT/HCPCS: 80053; 85027; 83036

== ENCOUNTER 2024-08-31 09:46 | Outpatient (REF) | payer BC, SELFPAY ==
[2024-08-31 14:58] LABS: Anion Gap 5.7 mmol/L (3-11); BUN 7 mg/dL (7-18); CO2 31.3 mmol/L (21.0-32.0); CREATININE 0.8 mg/dL (0.55-1.02); Calcium 9.5 mg/dL (8.5-10.1); Chloride 103 mmol/L (98-107); Estimated GFR 88.05 (mL/min/1.73m2); Glucose 109 mg/dL (74-106); Potassium 5.2 mmol/L (3.5-5.1); Sodium 140 mmol/L (136-145)
== END 2024-08-31 09:47 | disposition home or self-care (01) ==
LOC: NCHCN 09:46
PROVIDERS: PCP Family Medicine; Visit Provider Family Medicine
DX: I10 Essential (primary) hypertension (principal)
CPT/HCPCS: 80048

== ENCOUNTER 2024-10-05 11:04 | Outpatient (REF) | payer BC, SELFPAY ==
--- OUTSIDE RECORDS SUMMARY | 2024-10-05 11:09 | XMS_ITS | Encounter Summary ---
Author Organization [facility] Address [address] [place] [address] Care Team Providers Care Truck Driver Instructor Name Role Phone Sher Lisa MD Primary Care Provider Unavailab le Encounter Details Date Type Department Care Team (Late st Contact Info) Description 12/06/2021 Lab Requisition [facility] Pathology & Laboratory Medicine - [facility] [address] [place] [address] Outr Resulting Lab, Provider Social History Tobacco Use Types Packs/Day Years Used Date Smoking Tobacco: Never Assessed Comments Unknown Sex and Gender Information Value Date Recorded Sex Assigned at Not on file Legal Sex Female 17:56 EST Gender Identity Not on file Sexual Orientation [...] C Antibody Negative Negative 12/07/2021 9:38 EDT [facility] Blood VENOUS BLOOD / Unknown 12/06/2021 8:25 EDT 12/06/2021 21:26 EDT us Provider Outr Resulting Lab CHEMISTRY & BLOOD GA S ORDERABLES Final Result [facility] [address] [place] [address] documented in this encounter Visit Diagnoses Not on filedocumented in this encounter Care Teams Truck Driver Instructor Relationship Specialty Start Date End Date Sher Lisa MD PCP - General 08/02/15 documented as of this encounter
--- OUTSIDE RECORDS SUMMARY | 2024-10-05 11:09 | XMS_ITS | Encounter Summary ---
Author Organization [facility] Address [address] [place] [address] Care Team Providers Care Zinc Furnace Charger Name Role Phone Sehr Lisa MD Primary Care Provider Unavailab le Encounter Details Date Type Department Care Team (Late st Contact Info) Description 01/29/2020 Lab Requisition [facility] Pathology & Laboratory Medicine - [address] [address] Outr Resulting Lab, Provider Social History Tobacco [...] Priority Date/Time Associated Diagnosis Comments ZZCOVID-19 TEST [facility] PCR Today 01/29/2020 11:30 EDT COVID-19 TESTING Routine 01/29/2020 11:3 0 EDT documented in this encounter Results * COVID-19 TEST [facility] PCR (01/29/2020 11:30 EDT) Swab ENTIRE NASOPHARYNX / Unknown 01/29/2020 11:30 EDT 01/31/2020 16:08 EDT Narrative [facility] - 02/01/2020 15:47 EDT Delay in testing. Potential for false negative results. us Provider Outr Resulting Lab MICROBIOLOGY - GENER AL ORDERABLES Final Result Performing Organization Address [facility] Co de Phone Number [facility] [address] [place] [address] * COVID-19 TESTING (01/29/2020 11:30 EDT) COVID-19 rt-PCR Result Negative Negative 02/01/2020 15:47 EDT [facility] Comment: Delay in testing. Potential for false negative results. Negative results do not preclude 2019-nCoV infection and should not be used as the sole basis for treatment or other patient management decisions. Negative results must be combined with clinical observations, patient history, and epidemiological information. This test was developed and its performance characteristics determined by [facility]. It has not been cleared or [...] defined by the FDA Performed on the [employer] 7500 Fast. Performing Lab [facility] 02/01/2020 15:47 EDT [facility] Swab ENTIRE NASOPHARYNX / Unknown 01/29/2020 11:30 EDT 01/31/2020 16:08 EDT us Provider Outr Resulting Lab MICROBIOLOGY - GENER AL ORDERABLES Final Result Performing Organization Address City/[facility]/ZIP Co de Phone Number [facility] [address] [place] [address] documented in this encounter Visit Diagnoses Not on filedocumented in this encounter Care Teams Zinc Furnace Charger Relationship Specialty Start Date End Date Sher Lisa MD PCP - General 08/02/15 documented as of this encounter
--- OUTSIDE RECORDS SUMMARY | 2024-10-05 11:09 | XMS_ITS | Encounter Summary ---
Author Organization [facility] Address [address] [place] [address] Care Team Providers Care Political Science Faculty Member Name Role Phone Sher Lisa MD Primary Care Provider Unavailab le Encounter Details Date Type Department Care Team (Late st Contact Info) Description 01/15/2018 Results Only [facility] [phone] Prisca Ramirez MD [address] [phone] Social History Tobacco Use Types [...] ? MEHREEN MICHAEL ? Accession #: ? [id number] ? : ? 1970 (Age: 47) ??F [...] reviewed and electronically signed by: ? JOHN Camarena(ASCP) ? Report ??Date: 01/23/2018 10:58 HPV with Pap Test ? Date Ordered: ? 01/23/2018 ? Status: ?? Signed Out ?Date Complete: ? 01/24/2018 ? By: ??System Interface ? Date Reported: ? 01/24/2018 ? Interpretation RESULT: Negative for HPV. No E6 or E7 mRNA is detected from HPV types 16,18,31,33,35, 39,45,51,52,56,58, 59,66, and 68 by stack attendant mediated amplification. Comments Document reviewed and electronically signed by: ? System Interface ? Report date: 01/24/2018 By the signature above, the attending physician certifies that he/she has personally conducted a gross and/or microscopic examination of the described specimens and rendered or confirmed the above diagnosis. End of Report [facility] 01/15/2018 01/16/2018 us Prisca Ramirez MD PATHOLOGY ORDERABLES Final Resul t [facility] [address] [place] [address] documented in this encounter Visit Diagnoses Not on filedocumented in this encounter Care Teams Political Science Faculty Member Relationship Specialty Start Date End Date Sher Lisa MD PCP - General 08/02/15 documented as of this encounter
--- OUTSIDE RECORDS SUMMARY | 2024-10-05 11:09 | XMS_ITS | Encounter Summary ---
Author Organization [facility] [place] [address] Care Team Providers Care Memory Care Program Resident Name Role Phone Prisca Gutierrez MD Primary Care Provider [phone] Encounter Details Date Type Department Care Team (Late st Contact Info) Description 12/28/2022 Telephone Dermatology at [address] [phone] Alicia Guzman RN Social History [...] her lab orders to Be faxed to [facility]. Patient did schedulee for her 1 month follow up appointment on 02/08/2023. Patient to call office if she has any other questions or concerns documented in this encounter Plan of Treatment Not on file documented as of this encounter Visit Diagnoses Not on filedocumented in this encounter Care Teams Memory Care Program Resident Relationship Specialty Start Date End Date Prisca Gutierrez MD [facility] MOLLY ANDRADE [facility] [address] [place] [address] PCP - General Family Medicine 01/30/18 documented as of this encounter
--- OUTSIDE RECORDS SUMMARY | 2024-10-05 11:09 | XMS_ITS | Encounter Summary ---
Author Organization [facility] [place] [address] Care Team Providers Care Driller Hand Name Role Phone Prisca Gutierrze MD Primary Care Provider [phone] Encounter Details Date Type Department Care Team (Late st Contact Info) Description 07/01/2023 Refill Dermatology at [address] [phone] Alicia Guzman RN Social History [...] the prescription to be called in to [facility] in [place]. Prescription last filled 12/27/2022 Halobetasol propionate 0.05% Apply thin layer topically twice daily to psoriasis as needed. Dispense 45 g with 2 refills. Patient informed . documented in this encounter Plan of Treatment Not on file documented as of this encounter Visit Diagnoses Not on filedocumented in this encounter Care Teams Driller Hand Relationship Specialty Start Date End Date Prisca Gutierrez MD [address] [place] [address] PCP - General Family Medicine 01/30/18 documented as of this encounter
--- OUTSIDE RECORDS SUMMARY | 2024-10-05 11:09 | XMS_ITS | Encounter Summary ---
Author Organization [facility] Address [address] [place] [address] Care Team Providers Care Patent Prosecution Paralegal Name Role Phone Unavailable Primary Care Provider Unavailabl e Encounter Details Date Type Department Care Team (Late st Contact Info) Description 10/17/2011 Results Only [facility] Laboratory Services - [facility] ([facility] [address] [place] [address] Prisca Ramirez MD [address] [phone] Social History Tobacco Use Types [...] ? MEHREEN MICHAEL ? Accession #: ? [id number] ? : ? 1970 (Age: 41) ??F [...] confirmed the above diagnosis. End of Report [facility] 10/17/2011 10/18/2011 us Prisca Ramirez MD PATHOLOGY ORDERABLES Final Resul t [facility] [address] [place] [address] documented in this encounter Visit Diagnoses Not on filedocumented in this encounter
--- OUTSIDE RECORDS SUMMARY | 2024-10-05 11:09 | XMS_ITS | Encounter Summary ---
Author Organization [facility] Address [address] [place] [address] Care Team Providers Care Copyright Clerk Name Role Phone Sher Lisa MD Primary Care Provider Unavailab le Encounter Details Date Type Department Care Team (Late st Contact Info) Description 12/06/2021 Lab Requisition [facility] Pathology & Laboratory Medicine - [facility] [address] [place] [address] Outr Resulting Lab, Provider Social History Tobacco [...] 4th Generation Negative Negative 12/07/2021 9:50 EDT [facility] Comment:If acute HIV-1 infec tion is suspected in a high risk patient, submit plasma specimen for HIV-1 RNA quantitation test. Blood VENOUS BLOOD / Unknown 12/06/2021 8:25 EDT 12/06/2021 21:25 EDT Narrative [facility] - 12/07/2021 9:50 EDT Fourth Generation assay performed on the Siemens Centaur XPT. us Provider Outr Resulting Lab IMMUNOLOGY AND SEROL OGY ORDERABLES Final Result [facility] [address] [place] [address] documented in this encounter Visit Diagnoses Not on filedocumented in this encounter Care Teams Copyright Clerk Relationship Specialty Start Date End Date Sher Lisa MD PCP - General 08/02/15 documented as of this encounter
--- OUTSIDE RECORDS SUMMARY | 2024-10-05 11:09 | XMS_ITS | Clinical Summary ---
Author Organization [facility] Address [address] [place] [address] Care Team Providers Care Sound Equipment Mechanic Name Role Phone Sher Lisa MD Primary [...] 3-dose series) 05/14 COVID-19 Vaccine ( season) 2024 Hepatitis C Screen Completed 12/06/2021 Procedures Procedure Name Priority Date/Time Associated Diagnosis Comments HEPATITIS C AB W REFLEX TO HCV RNA BY PCR Routine 12/06/2021 8:25 EDT from Last 3 Months or Most Recently Relevant to Health Maintenance Results * HEPATITIS C AB W REFLEX TO HCV RNA BY PCR (12/06/2021 8:25 EDT) Hep C Antibody Negative Negative 12/07/2021 9:38 EDT [facility] Blood VENOUS BLOOD / Unknown 12/06/2021 8:25 EDT 12/06/2021 21:26 EDT us Provider Outr Resulting Lab CHEMISTRY & BLOOD GA S ORDERABLES Final Result [facility] [address] [place] [address] from Last 3 Months or Most Recently Relevant to Health Maintenance Care Teams Sound Equipment Mechanic Relationship Specialty Start Date End Date Sher Lisa MD PCP - General 08/02/15
--- OUTSIDE RECORDS SUMMARY | 2024-10-05 11:09 | XMS_ITS | Encounter Summary ---
Author Organization [facility] Address [address] [place] [address] Care Team Providers Care Baler Operator Name Role Phone Unavailable Primary Care Provider Unavailabl e Encounter Details Date Type Department Care Team (Late st Contact Info) Description 05/10/2010 Results Only [facility] Laboratory Services - [facility] ([facility]) [address] [place], [place] [id number] Thais Anderson NP [address] [place] [address] Social History Tobacco Use Types [...] ? MEHREEN MICHAEL ? Accession #: ? [id number] ? : ? 1970 (Age: 39) ??F ?Collect Date: ? 05/10/2010 ? Location: ? [facility] ? Receive Date: ? 05/12/2010 ? Provider: ?THAIS ANDERSON EMERGENCY COMMUNICATIONS OFFICER ? Copy to: ? Specimen/Source: ?Pap Test, [...] of Report ? [facility] 05/10/2010 05/12/2010 us Thais Anderson EMERGENCY COMMUNICATIONS OFFICER PATHOLOGY ORDERABLES Final Res ult [facility] [address] [place] [address] documented in this encounter Visit Diagnoses Not on filedocumented in this encounter
--- OUTSIDE RECORDS SUMMARY | 2024-10-05 11:09 | XMS_ITS | Encounter Summary ---
Author Organization [facility] [place] [address] Care Team Providers Care Housekeeper And Laundry Assistant Name Role Phone Prisca Gutierrez MD Primary Care Provider [phone] Encounter Details Date Type Department Care Team (Late st Contact Info) Description 12/27/2022 Telephone Dermatology at [address] [phone] Jane Cardenas LPN Social History [...] Requesting refill. She will be leaving for [place] in two weeks and staying for two [...] on filedocumented in this encounter Care Teams Housekeeper And Laundry Assistant Relationship Specialty Start Date End Date Prisca Gutierrez MD [address] [place] [address] PCP - General Family Medicine 01/30/18 documented as of this encounter
--- OUTSIDE RECORDS SUMMARY | 2024-10-05 11:09 | XMS_ITS | Encounter Summary ---
[place] [address] Care Team Providers Care Parks And Recreation Worker Name Role Phone Prisca Gutierrez MD Primary Care Provider [phone] Encounter Details Date Type Department Care Team (Late st Contact Info) Description 12/27/2022 Refill Dermatology at [address] [place] [phone] Jane Cardenas, NETWORKING SPECIALIST Social History Tobacco Use Types Packs/Day Years [...] on filedocumented in this encounter Care Teams Parks And Recreation Worker Relationship Specialty Start Date End Date Prisca Gutierrez MD [address] [place] [address] [address] [place] [address] PCP - General Family Medicine 01/30/18 documented as of this encounter
--- OUTSIDE RECORDS SUMMARY | 2024-10-05 11:09 | XMS_ITS | Encounter Summary ---
Author Organization [facility] Address [address] [place] [address] Care Team Providers Care Tax Professional Name Role Phone Sher Lisa MD Primary Care Provider Unavailab le Encounter Details Date Type Department Care Team (Late st Contact Info) Description 10/12/2021 Lab Requisition [facility] Pathology & Laboratory Medicine - [address] [address] Outr Resulting Lab, Provider Social History Tobacco [...] 13 - 39 mg/dL 10/13/2021 11:34 EST [facility] Blood VENOUS BLOOD / Unknown 10/12/2021 5:30 EST 10/12/2021 16:46 EST us Provider Outr Resulting Lab CHEMISTRY & BLOOD GA S ORDERABLES Final Result [facility] [address] [place] [address] documented in this encounter Visit Diagnoses Not on filedocumented in this encounter Care Teams Tax Professional Relationship Specialty Start Date End Date Sher Lisa MD PCP - General 08/02/15 documented as of this encounter
--- OUTSIDE RECORDS SUMMARY | 2024-10-05 11:09 | XMS_ITS | Encounter Summary ---
Author Organization [facility] Address [address] [place] [address] Care Team Providers Care Java Security Engineer Name Role Phone Unavailable Primary Care Provider Unavailabl e Encounter Details Date Type Department Care Team (Late st Contact Info) Description 07/03/2002 Results Only [facility] - Maple conversion [address] [place] [address] Socorro Pressley MD [address] [place] [phone] Social History Tobacco Use Types Packs/Day [...] Result No Chlamydia trachomatis DNA detected by stocking inspector mediated amplification. [facility] Report Status Final [id number] [facility] 07/03/2002 11:2 7 EDT 07/03/2002 11:27 EDT us Socorro Pressley MD HISTORICAL LAB FOR SQ LOAD Final Result Performing Organization Address [facility] Co de Phone Number [facility] [address] [place] [address] * N.GONORRHOEAE PROBE (07/03/2002 11:27 EDT) Specimen Description Unknown [facility] Result No Neisseria gonorrhoeae DNA detected by stocking inspector mediated amplification. [facility] Report Status Final [id number] [facility] 07/03/2002 11:2 7 EDT 07/03/2002 11:27 EDT us Socorro Pressley MD HISTORICAL LAB FOR SQ LOAD Final Result Performing Organization Address [facility] Co de Phone Number [facility] [address] [place] [address] documented in this encounter Visit Diagnoses Not on filedocumented in this encounter
--- OUTSIDE RECORDS SUMMARY | 2024-10-05 11:09 | XMS_ITS | Clinical Summary ---
Author Organization [facility] Address [facility] [place] [address] Care Team Providers Care Elastic Attacher Overlock Name Role Phone Prisca Gutierrez MD Primary Care Provider [phone] Allergies Active Allergy Reactions Criticality Noted Date [...] Hepatitis B vaccine (0-59 yrs) (1) 1990 Tetanus/Diphtheria/Pertussis Vaccines (1 - Tdap) 05/14 HPV test 2001 PAP Smear 2001 Breast Cancer Share Decision Needed 2011 Breast Cancer screening 2011 Zoster vaccine (1 of 2) 2021 Covid-19 Vaccine (1 - 2023-25 season) 2024 Influenza (Flu) vaccine (1 o f 1 - Influenza standard series) 05/24/2024 Care Teams Elastic Attacher Overlock Relationship Specialty Start Date End Date Prisca Gutierrez MD [address] [place] [address] PCP - General Family Medicine 01/30/18
--- OUTSIDE RECORDS SUMMARY | 2024-10-05 11:09 | XMS_ITS | Encounter Summary ---
Author Organization [facility] Address [address] [place] [address] Care Team Providers Care Ore Crusher Name Role Phone Unavailable Primary Care Provider Unavailabl e Encounter Details Date Type Department Care Team (Late st Contact Info) Description 07/03/2002 19:33 EDT Hospital Encounter [facility] - Other [address] [place] [address] Socorro Gutierres MD [address] [place] [phone] Unknown, Provider, Social History Tobacco Use [...] ? MEHREEN PELAEZ ? Accession #: ? [id number] ? : ? 1970 (Age: 32) ??F [...] Gross Description: ? Received in formalin labelled Goldie is a 0.5 x 0.3 x 0.2 cm shave biopsy of a bosselated delgado-white papule. ??The specimen is bisected and submitted entirely in one cassette. ??(Yissel Martinez/jocelin End of Report [facility] 07/03/2002 07/03/2002 15: 42 EDT us Socorro Gutierres MD PATHOLOGY ORDERABLES Final Result [facility] [address] [place] [address] documented in this encounter Visit Diagnoses Not on filedocumented in this encounter
--- OUTSIDE RECORDS SUMMARY | 2024-10-05 11:09 | XMS_ITS | Encounter Summary ---
Author Organization [facility] Address [address] [place] [address] Care Team Providers Care Outbound Sales Consultant Name Role Phone Unavailable Primary Care Provider Unavailabl e Encounter Details Date Type Department Care Team (Late st Contact Info) Description 10/30/2001 21:32 EST Hospital Encounter [facility] - Other [address] [place] [address] Nelson Guerra MD [address] [facility] [address] [place] [phone] Unknown, Provider, Discharge Disposition: Auto Discharge Social [...] ? MEHREEN PELAEZ ? Accession #: ? [id number] : ? 1970 (Age: 31) ??F ?Collect [...] End of Report [facility] 10/30/2001 10/31/2001 us Nelson Guerra MD PATHOLOGY ORDERABLES Final Result [facility] [address] [place] [address] documented in this encounter Visit Diagnoses Not on filedocumented in this encounter
--- OUTSIDE RECORDS SUMMARY | 2024-10-05 11:09 | XMS_ITS | Referral Summary ---
Author Organization [facility] Address [address] [place] [address] Care Team Providers Care Bulk Sealer Name Role Phone Sher Lisa MD Primary [...] Antibody Negative Negative 12/07/2021 9:38 EDT [facility] Blood VENOUS BLOOD / Unknown 12/06/2021 8:25 EDT 12/06/2021 21:26 EDT us Provider Outr Resulting Lab CHEMISTRY & BLOOD GA S ORDERABLES Final Result [facility] [address] [place] [address] from Last 3 Months or Most Recently Relevant to Health Maintenance Care Teams Bulk Sealer Relationship Specialty Start Date End Date Sher Lisa MD PCP - General 08/02/15
--- OUTSIDE RECORDS SUMMARY | 2024-10-05 11:09 | XMS_ITS | Encounter Summary ---
[place] [address] Care Team Providers Care Medical Program Specialist Name Role Phone Prisca Gutierrez MD Primary Care Provider [phone] Reason for Visit * Reason Comments Medication Refill Encounter Details Date Type Department Care Team (Late st Contact Info) Description 06/28/2023 Refill Dermatology at [place] [address] [facility] [place] [phone] Ronnie Marroquin MD [address] [place] [address] Social History Tobacco Use Types Packs/Day Years [...] on filedocumented in this encounter Care Teams Medical Program Specialist Relationship Specialty Start Date End Date Prisca Gutierrez MD [address] [place] [address] PCP - General Family Medicine 01/30/18 documented as of this encounter
--- OUTSIDE RECORDS SUMMARY | 2024-10-05 11:09 | XMS_ITS | Encounter Summary ---
Author Organization [facility] Address [address] [place] [address] Care Team Providers Care Senior Medical Billing Specialist Name Role Phone Sher Lisa MD Primary Care Provider Unavailab le Encounter Details Date Type Department Care Team (Late st Contact Info) Description 12/24/2022 Lab Requisition [facility] Pathology & Laboratory Medicine - [facility] [address] [place] [address] Prisca Gutierrez MD [address] [place] [phone] Encounter for other general examination Social [...] types, PCR Negative Negative 01/03/2023 16:03 EDT [facility] Comment:No E6 or E7 mRNA is detected from HPV types 16,18,31,33,35,39,45,51,52,56,58,59,66, and 68 by planograph operator mediated amplification. Papanicolaou smear specimen (specimen) CERVIX UTERI STRUCTURE / Unknown 12/21/2022 8:55 EDT 01/02/2023 11:40 EDT us Prisca Gutierrez MD MICROBIOLOGY - GENERAL ORDERABLE S Final Result [facility] [address] [place] [address] * PAP TEST (12/21/2022 8:55 EDT) Specimens A. Cervix and/or Endocervix , ThinPrep Imaging System with Manual Evaluation 01/03/2023 16:03 T [facility] Specimen Adequacy Satisfactory for Evaluation - transformation zone component present 01/03/2023 16:03 T [facility] General Categorization Negative for intraepithelial lesion or malignancy 01/03/2023 16:03 T [facility] Attestation . 01/03/2023 16:03 [facility] at 1603 Clinical History See below 01/04/20 23 16:03 T [facility] HPV The result for the Human Papillomavirus (HPV) Detection-High Risk Types is Negative. No E6 or E7 mRNA is detected from HPV types 16,18,31,33,35,39 ,45,51,52,56,58,5 9,66, and 68 by planograph operator mediated amplification.Rosa ting was performed on specimen [id number] and was resulted on 01/03/2023 1603 EDT by EDGAR, LAB INSTRUMENT RESULTS IN 01/03/2023 16:03 T [facility] Performing Lab [facility] 01/03/2023 16:03 T [facility] Scanned Images 01/03/2023 16:03 T [facility] Papanicolaou smear specimen (specimen) CERVIX UTERI STRUCTURE / Unknown 12/21/2022 8:55 EDT 12/24/2022 12:54 EDT us Prisca Gutierrez MD PATHOLOGY ORDERABLES Final Resul t [facility] [address] [place] [address] documented in this encounter Visit Diagnoses Diagnosis Encounter for other general examination documented in this encounter Care Teams Senior Medical Billing Specialist Relationship Specialty Start Date End Date Sher Lisa MD PCP - General 08/02/15 documented as of this encounter
--- OUTSIDE RECORDS SUMMARY | 2024-10-05 11:09 | XMS_ITS | Encounter Summary ---
Author Organization [facility] [place] [address] Care Team Providers Care Dental Manager Name Role Phone Prisca Gutierrez MD Primary Care Provider [phone] Encounter Details Date Type Department Care Team [...] on filedocumented in this encounter Care Teams Dental Manager Relationship Specialty Start Date End Date Prisca Gutierrez MD [facility] [address] [place] [address] PCP - General Family Medicine 01/30/18 documented as of this encounter
--- OUTSIDE RECORDS SUMMARY | 2024-10-05 11:10 | XMS_ITS | Encounter Summary ---
[place] [address] Care Team Providers Care Retanned Leather Roller Name Role Phone Prisca Gutierrez MD Primary Care Provider [phone] Encounter Details Date Type Department Care Team (Late st Contact Info) Description 07/20/2022 Refill Dermatology at [address] [place] [address] Alicia Guzman, RN Social History [...] on filedocumented in this encounter Care Teams Retanned Leather Roller Relationship Specialty Start Date End Date Prisca Gutierrez MD [address] [place] [address] [address] [place] [address] PCP - General Family Medicine 01/30/18 documented as of this encounter
--- OUTSIDE RECORDS SUMMARY | 2024-10-05 11:10 | XMS_ITS | Encounter Summary ---
Author Organization [facility] [place] [address] Care Team Providers Care Tea Tree Farm Worker Name Role Phone Prisca Gutierrez MD Primary Care Provider [phone] Encounter Details Date Type Department Care Team (Late st Contact Info) Description 03/19/2022 Refill Dermatology at [address] [place] [address] Jane Cardenas LPN Social History [...] Approval by Dr. Marroquin. Order sent to [facility] per patient request. documented in this encounter Plan of Treatment Not on file documented as of this encounter Visit Diagnoses Not on filedocumented in this encounter Care Teams Tea Tree Farm Worker Relationship Specialty Start Date End Date Prisca Gutierrez MD [address] [place] [address] PCP - General Family Medicine 01/30/18 documented as of this encounter
--- OUTSIDE RECORDS SUMMARY | 2024-10-05 11:10 | XMS_ITS | Encounter Summary ---
[place] [address] Care Team Providers Care Advanced Seal Delivery System Name Role Phone Prisca Gutierrez MD Primary Care Provider Reason for Referral * Allergy Testing (Routine) - Closed Specialty Diagnoses / Procedures Referred By Quentin zaragoza Referred To Contact Allergy Diagnoses Hx of allergic reaction Angioneurotic edema, subsequent encounter Prisca Gutierrez MD [address] [place] [address] [facility] [address] [place] [address] Referral ID Status Reason Start Date Expiration Date V isits Requested Visits Authorized [id number] Closed Consult, Test & Treat PCP Updated and/or Approved 01/19/2022 01/19/2023 6 6 Encounter Details Date Type Department Care Team (Latest Contact Info) Description 01/19/2022 Transcribe Orders eDH Incoming Referrals [phone] Prisca Gutierrez MD [address] [place] [address] Hx of allergic reaction; Angioneurotic [...] encounter documented in this encounter Care Teams Advanced Seal Delivery System Relationship Specialty Start Date End Date Prisca Gutierrez MD [facility] [address] [facility] [place] [address] PCP - General Family Medicine 01/30/18 documented as of this encounter
--- OUTSIDE RECORDS SUMMARY | 2024-10-05 11:10 | XMS_ITS | Encounter Summary ---
Author Organization [facility] [place] [address] Care Team Providers Care Helix Coil Winder Name Role Phone Prisca Gutierrez MD Primary Care Provider [phone] Encounter Details Date Type Department Care Team (Late st Contact Info) Description 02/04/2020 8:30 AM EDT TH Visit ([facility]) Dermatology at [address] [phone] Ronnie Marroquin MD [address] [facility], [place] [address] Psoriasis Social History Tobacco Use Types Packs/Day [...] medial breast, excised by Dr. Mae in [place] 2001 3. Patient lived for 10 years in [place] 4. Cigarette smoker, 1/2 pack a day 5. [facility]. Dean follows up after last [...] saw me last in January 2018 at [place] for time her feet cleared up pretty [...] psoriasis documented in this encounter Care Teams Helix Coil Winder Relationship Specialty Start Date End Date Prisca Gutierrez MD [facility] [address] [place] [address] PCP - General Family Medicine 01/30/18 documented as of this encounter
--- OUTSIDE RECORDS SUMMARY | 2024-10-05 11:10 | XMS_ITS | Encounter Summary ---
Author Organization [facility] [address] Care Team Providers Care Lead Sewage Plant Operator Name Role Phone Prisca Gutierrez MD Primary Care Provider [phone] Encounter Details Date Type Department Care Team (Latest Contact Info) Description 02/07/2021 10:16 PM EDT - 02/07/2021 11:59 PM EDT Hospital [place] [phone] Discharge Disposition: Home Social History Tobacco Use [...] is used in quantitative reverse transcriptase PCR ([employer] qPCR BCR-ABL IS Kit, [employer])) for the detection of the e13/a2 or e14/a2 major breakpoint BCR-ABL transcripts corresponding to the p210 fusion protein. This assay is validated to detect these fusion transcripts at concentrations as low as 0.002% BCR-ABL1 (IS) or a log reduction of 4.7 (MR4.7). LIMITATIONS AND DISCLAIMERS: ??This assay is designed to detect the [id number] BCR-ABL1 transcripts (e13/a2 and e14/a2) only. This assay is not designed to detect p190 (e19/a2) or other less common BCR-ABL1 fusion transcripts. This test was developed and its performance characteristics determined by the [facility] ([facility] at [facility]. It has not been cleared or approved by the FDA. The laboratory is regulated under CLIA as qualified to perform high-complexity testing. This test is used for clinical purposes. It should not be regarded as investigational or for research. [facility] Comment: [VERIFIED DATE]02.15.21 Verified By:Nayana PhD, Gray Nathan Molecular Pathologist (Electronic Signature) Blood Venous Draw / Unknown 02/07/2021 9:20 AM EDT 02/08/2021 7:53 AM EDT Narrative Resulting Agency Comment Spec In Lab Dr Angely Sims MD [place] [address] documented in this encounter Visit Diagnoses Not on filedocumented in this encounter Care Teams Lead Sewage Plant Operator Relationship Specialty Start Date End Date Prisca Gutierrez MD [address] [place] [address] PCP - General Family Medicine 01/30/18 documented as of this encounter
--- OUTSIDE RECORDS SUMMARY | 2024-10-05 11:10 | XMS_ITS | Encounter Summary ---
[place] [address] Care Team Providers Care Software Test Analyst Name Role Phone Prisca Gutierrez MD Primary Care Provider [phone] Reason for Visit * Reason Comments Follow-up Skin Check * Consultation (Routine) - Specialty Diagnoses / Procedures Referred By Contac t Referred To Contact Dermatology Diagnoses Rash and other nonspecific skin eruption Rash Procedures Consult Prisca Gutierrez MD [address] [place] [address] [address] Ronnie Marroquin MD [address] [place] [address], [facility] [place] [address] Referral ID Status Reason Start Date Expiration Date V isits Requested Visits Authorized [id number] 01/07/2018 01/07/2019 1 1 Encounter Details Date Type Department Care Team (Late st Contact Info) Description 01/30/2018 4:15 PM EDT Office Visit Dermatology at [address] [place] [address] Ronnie Marroquin MD [address] [facility], [facility] A DERMATOLOGY [place], [place] [id number] Psoriasis Social History Tobacco Use Types Packs/Day [...] medial breast, excised by Dr. Mae in [place] 2001 3. Patient is a 10 years in [place] Dean follows up and for about a [...] of clobetasol to her right aid in [place] with 1 refill. 2. Dry skin, then apply clobetasol and then use tape occlusion to sheeter helper in the penetration of clobetasol into [...] psoriasis documented in this encounter Care Teams Software Test Analyst Relationship Specialty Start Date End Date Prisca Gutierrez MD [facility] [address] [place] [address] PCP - General Family Medicine 01/30/18 documented as of this encounter
--- OUTSIDE RECORDS SUMMARY | 2024-10-05 11:10 | XMS_ITS | Encounter Summary ---
[place] [address] Care Team Providers Care Director Global Development Name Role Phone Ashlyn Mahoney APRN Primary Care Provider [phone] Reason for Visit * Reason Comments Rosacea Encounter Details Date Type Department Care Team (Late st Contact Info) Description 02/20/2013 9:00 AM EDT Office Visit Dermatology [address] [facility] [address] [place] [address] Ronnie Marroquin MD [address] [place] [address] History of malignant melanoma (Primary Dx); Rosacea [...] medial breast, excised by Dr. Mae in [place] 2001. 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 She was diagnosed with melanoma, and this was excised, and she has done well since. She did not require sentinel lymph node biopsy or interferon. She had regular followups while she was in [place] but no evidence of new areas of melanoma nor recurrence at the old site. She also is concerned about worsening rosacea and wonders what can be done for this. She gets a little bit of sun and tans a little bit; it is minimally apparent. It becomes more apparent during a [place] winter. She was given MetroGel to try [...] Plan: 1. History of malignant melanoma 2001, [place]. a. Patient reassured about benign examination today. [...] Rosacea documented in this encounter Care Teams Director Global Development Relationship Specialty Start Date End Date Ashlyn Mahoney APRN PCP - General 08/15/10 11/18/16 documented as of this encounter
--- OUTSIDE RECORDS SUMMARY | 2024-10-05 11:10 | XMS_ITS | Encounter Summary ---
Author Organization [facility] Address [facility] [place] [address] Care Team Providers Care Core Drilling Supervisor Name Role Phone Prisca Gutierrez MD Primary Care Provider [phone] Reason for Visit * Consultation (Routine) - Specialty Diagnoses / Procedures Referred By Quentin zaragoza Referred To Contact Hematology and Oncology Diagnoses Essential (hemorrhagic) thrombocythemia Prisca Gutierrez MD [address] [place] [address] [address] [facility] Hem Onc Office [address] [place] [phone] Referral ID Status Reason Start Date Expiration Date V isits Requested Visits Authorized [id number] Consult, Test & Treat [facility] PCP Updated and/or Approved 10/14/2020 04/13/2021 6 6 Encounter Details Date Type Department Care Team (Late st Contact Info) Description 01/26/2021 9:00 AM EDT Office Visit Hematology/Oncology at [address] [phone] Chintan Lozano MD [facility] DR HEMATOLOGY [place] [address] Kirsty Alvarez APRN [address] [place] [address] [place] [address] Thrombocytosis; Elevated hematocrit; Neutrophilia Social [...] 50-year-old female who is referred to 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 She [...] BCR/ABL or JA K-2 mutation. This should rock picker 90 to 95% of all cases [...] cells documented in this encounter Care Teams Core Drilling Supervisor Relationship Specialty Start Date End Date Prisca Gutierrez MD [address] [place] [address] PCP - General Family Medicine 01/30/18 documented as of this encounter
--- OUTSIDE RECORDS SUMMARY | 2024-10-05 11:10 | XMS_ITS | Encounter Summary ---
[place] [address] Care Team Providers Care Product Development Specialist Name Role Phone Prisca Gutierrez MD Primary Care Provider [phone] Encounter Details Date Type Department Care Team (Late st Contact Info) Description 01/30/2018 Refill Dermatology at [address] [place] [address] Jane Cardenas, DERRICK CAR OPERATOR Social History Tobacco Use Types Packs/Day Years [...] on filedocumented in this encounter Care Teams Product Development Specialist Relationship Specialty Start Date End Date Prisca Gutierrez MD [facility] [address] [place] [address] PCP - General Family Medicine 01/30/18 documented as of this encounter
--- OUTSIDE RECORDS SUMMARY | 2024-10-05 11:10 | XMS_ITS | Encounter Summary ---
Author Organization [facility] [place] [address] Care Team Providers Care Special Needs Babysitter Name Role Phone Prisca Gutierrez MD Primary Care Provider [phone] Reason for Visit * Reason Onset Date Comments Follow-up 02/02/2021 Encounter Details Date Type Department Care Team (Late st Contact Info) Description 02/02/2021 Telephone Hematology/Oncology at [address] [phone] Cristel Bajwa RN Follow-up Social History Tobacco Use Types Packs/Day Years Used Date Smoking Tobacco: Every Day Cigarettes 0.5 10 Smokeless Tobacco: Never Sex and Gender Information Value Date Recorded Sex Assigned at Not on file Gender Identity Not on file Sexual Orientation Not on file documented as of this encounter Miscellaneous Notes * Telephone Encounter - Cristle Bajwa RN - 02/02/2021 10:46 AM EDT Pt was suppose to get blood work for Dr. Lozano, none done at [facility] or [facility]. Called pt and leftmessage for her to call us when she gets this done. documented in this encounter Plan of Treatment Not on file documented as of this encounter Visit Diagnoses Not on filedocumented in this encounter Care Teams Special Needs Babysitter Relationship Specialty Start Date End Date Prisca Gutierrez MD [address] [place] [address] [address] [place], [place] [id number] PCP - General Family Medicine 01/30/18 documented as of this encounter
--- OUTSIDE RECORDS SUMMARY | 2024-10-05 11:10 | XMS_ITS | Encounter Summary ---
Author Organization [facility] [address] Care Team Providers Care Printed Circuit Board Panels Plater Name Role Phone Prisca Gutierrez MD Primary Care Provider [phone] Reason for Visit * Allergy Testing (Routine) - Closed Specialty Diagnoses / Procedures Referred By Quentin t Referred To Contact Allergy Diagnoses Hx of allergic reaction Angioneurotic edema, subsequent encounter Prisca Gutierrez MD [address] [place] [address] [address] [facility] [address] [place] [phone] Referral ID Status Reason Start Date Expiration Date V isits Requested Visits Authorized [id number] Closed Consult, Test & Treat PCP Updated and/or Approved 01/19/2022 01/19/2023 6 6 Encounter Details Date Type Department Care Team (Late st Contact Info) Description 01/30/2022 8:30 AM EDT [place] [address] Yudelka Aguiar MD [facility] [place] [address] Angioedema, initial encounter Social History [...] from the original note were not included. [facility] Section of Allergy and Clinical Immunology Date [...] sure timing. Work is typically from 8-[employer]. She had COVID-19 about 1 month ago, [...] Medical Records: I reviewed referral record and [facility] records. Assessment and Plan: Dean Nathan IsiSamira [...] if needed, telehealth [place] Yudelka Akhtar MD Paint Coating Machine Operator, Allergy [place] [address] [email or web address] documented in this encounter Plan of [...] C1Q (JANUARY) 23(H) 12 - 22 mg/dL [facility] Comment: ADDITIONAL INFORMATION This test was developed and its performance characteristics determined by [facility] in a manner consistent with CLIA requirements. This test has not been cleared or approved by the U.S. Food and Drug Administration. Test Performed by: [facility] [place] [id number] Field Property Loss Specialist: Satya Newell M.D. Ph.D.; CLIA# [id number] Blood 01/30/2022 9:32 AM EDT 01/30/2022 3:47 PM EDT Narrative Resulting Agency Comment Spec In Lab Yudelka Akhtar MD LAB SEND OUT SONA ELMORE [facility] [place] [address] * TSH [place] (01/30/2022 9:32 AM EDT) [facility] Signature Thyroid Stimulating Hormone 2.52 0.27 - 4.20 mcIU/mL [facility] Comment: Reference Interval (mcIU/mL): Females: ??First Trimester: 0.23-3.88 ??Second Trimester: 0.22-3.90 ??Third Trimester: 0.44-4.66 Blood 01/30/2022 9:32 AM EDT 01/30/2022 9:45 AM EDT Narrative Resulting Agency Comment Spec In Lab Yudelka Akhtar MD CHEMISTRY ORDERAB LES Performing Organization Address City/[facility] Co de Phone Number [facility] [place] [address] * Protein Electrophoresis, serum (01/30/2022 9:32 AM EDT) Total Prot Electrophoresis 7.2 6.1 - 8.0 g/dL [facility] Albumin Electrophoresis 4.33 3.60 - 6.00 g/dL [facility] Alpha 1 Globulin 0.18 0.10 - 0.30 g/dL [facility] Alpha 2 Globulin 0.73 0.40 - 0.90 g/dL [facility] Beta Globulin 0.95 0.50 - 1.00 g/dL [facility] Gamma Globulin 1.01 0.50 - 1.30 g/dL [facility] M1 Band None Detected None Detected [facility] Blood 01/30/2022 9:32 AM EDT 01/30/2022 9:45 AM EDT Narrative Resulting Agency Comment Spec In Lab Yudelka Akhtar MD CHEMISTRY ORDERAB LES Performing Organization Address [facility] Co de Phone Number [facility] [place] [address] * Tryptase (01/30/2022 9:32 AM EDT) Tryptase 4.1 <=8.4 ng/mL [facility] Comment: Total tryptase concentrations that are persistently greater than 20 ng/mL may be consistent with systemic mastocytosis. Blood 01/30/2022 9:32 AM EDT 01/30/2022 11:30 AM EDT Narrative Resulting Agency Comment Spec In Lab Yudelka Akhtar MD CHEMISTRY ORDERAB LES Performing Organization Address City/[facility]/ZIP Co de Phone Number [facility] [place] [address] * C3 Complement (01/30/2022 9:32 AM EDT) Complement C3 148 90 - 180 mg/dL [facility] Blood 01/30/2022 9:32 AM EDT 01/30/2022 9:45 AM EDT Narrative Resulting Agency Comment Spec In Lab Yudelka Akhtar MD CHEMISTRY ORDERAB LES Performing Organization Address City/[facility] Co de Phone Number [facility] [place] [address] * C4 Complement (01/30/2022 9:32 AM EDT) Complement C4 33 10 - 40 mg/dL [facility] Blood 01/30/2022 9:32 AM EDT 01/30/2022 9:45 AM EDT Narrative Resulting Agency Comment Spec In Lab Yudelka Akhtar MD CHEMISTRY ORDERAB LES Performing Organization Address City/[facility] Co de Phone Number [facility] [place] [address] documented in this encounter Visit Diagnoses Diagnosis Angioedema, initial encounter documented in this encounter Care Teams Printed Circuit Board Panels Plater Relationship Specialty Start Date End Date Prisca Gutierrez MD [address] [place] [address] PCP - General Family Medicine 01/30/18 documented as of this encounter
--- OUTSIDE RECORDS SUMMARY | 2024-10-05 11:10 | XMS_ITS | Encounter Summary ---
Author [facility] [place] [address] Care Team Providers Care Flat Polisher Name Role Phone Prisca Gutierrez MD Primary Care Provider [phone] Encounter Details Date Type Department Care Team (Late st Contact Info) Description 12/20/2021 Refill Dermatology at [address] [place] [address] Jane Cardenas LPN Social History [...] ointment. Applies as needed. Prescription sent to [facility] per pt request. documented in this encounter Plan of Treatment Not on file documented as of this encounter Visit Diagnoses Not on filedocumented in this encounter Care Teams Flat Polisher Relationship Specialty Start Date End Date Prisca Gutierrez MD [address] [place] [address] [address] [place] [address] PCP - General Family Medicine 5/10/18 documented as of this encounter
--- OUTSIDE RECORDS SUMMARY | 2024-10-05 11:10 | XMS_ITS | Encounter Summary ---
Author Organization [facility] [place] [address] Care Team Providers Care Lot Associate Name Role Phone Prisca Gutierrez MD Primary Care Provider [phone] Reason for Visit * Reason Comments Skin Check Encounter Details Date Type Department Care Team (Late st Contact Info) Description 08/28/2022 4:15 PM EST Office Visit Dermatology at [address] [phone] Ronnie Marroquin MD [address] [place] [address], [place] [address] Psoriasis Social History Tobacco Use Types Packs/Day [...] medial breast, excised by Dr. Mae in [place] 2001 3. 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 4. ??Cigarette smoker, 1/2 pack a day [...] psoriasis documented in this encounter Care Teams Lot Associate Relationship Specialty Start Date End Date Prisca Gutierrez MD [facility] [address] [place] [address] PCP - General Family Medicine 01/30/18 documented as of this encounter
--- OUTSIDE RECORDS SUMMARY | 2024-10-05 11:10 | XMS_ITS | Encounter Summary ---
[place] [address] Care Team Providers Care Special Education Supervisor Name Role Phone Prisca Gutierrez MD Primary Care Provider [phone] Encounter Details Date Type Department Care Team (Late st Contact Info) Description 02/04/2020 Refill Dermatology at [address] [place] [address] Jane Cardenas, CENTER SALES AND SERVICE ASSOCIATE Social History Tobacco Use Types Packs/Day Years [...] filedocumented in this encounter Care Teams Special Education Supervisor Relationship Specialty Start Date End Date Prisca Gutierrez MD [facility] [address] [place] [address] PCP - General Family Medicine 01/30/18 documented as of this encounter
--- OUTSIDE RECORDS SUMMARY | 2024-10-05 11:10 | XMS_ITS | Encounter Summary ---
Author Organization [facility] [place] [address] Care Team Providers Care Meat Packer Name Role Phone Prisca Gutierrez MD Primary Care Provider [phone] Reason for Visit * Reason Comments Follow-up Skin Check * Consultation (Routine) - Closed Specialty Diagnoses / Procedures Referred By Contac t Referred To Contact Dermatology Diagnoses Psoriasis, unspecified Psoriasis on Feet; Est. Patient-Notes Received Procedures Consult Prisca Gutierrez MD [facility] [address] [address] Ronnie Marroquin MD [address] [facility], MARIBEL [place] [address] Referral ID Status Reason Start Date Expiration Date Visits Re quested Visits Authorized [id number] Closed 01/19/2021 01/19/2022 1 1 Encounter Details Date Type Department Care Team (Late st Contact Info) Description 02/28/2021 9:45 AM EDT Office Visit Dermatology at [address] [phone] Ronnie Marroquin MD [address] [facility], MARIBEL Nathan DERMATOLOGY [place], [place] [id number] 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 Mae in [place] 2001 3. 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 4. Cigarette smoker, 1/2 pack a day [...] skin documented in this encounter Care Teams Meat Packer Relationship Specialty Start Date End Date Prisca Gutierrez MD [address] [place] [address] [address] [place] [address] PCP - General Family Medicine 01/30/18 documented as of this encounter
[2024-10-05 16:07] LABS: Anion Gap 5.4 mmol/L (3-11); BUN 12 mg/dL (7-18); CO2 29.6 mmol/L (21.0-32.0); CREATININE 0.9 mg/dL (0.55-1.02); Calcium 9.2 mg/dL (8.5-10.1); Chloride 106 mmol/L (98-107); Estimated GFR 76.44 (mL/min/1.73m2); Glucose 111 mg/dL (74-106); Potassium 4.5 mmol/L (3.5-5.1); Sodium 141 mmol/L (136-145)
== END 2024-10-05 11:05 | disposition home or self-care (01) ==
LOC: NCHCN 11:04
PROVIDERS: PCP Family Medicine; Visit Provider Family Medicine
DX: E87.5 Hyperkalemia (principal)
CPT/HCPCS: 80048

== ENCOUNTER 2025-06-18 16:28 | Outpatient (REF) | payer BC, SELFPAY ==
[2025-06-18 20:59] LABS: HCT 41.7 % (36.0-46.0); HGB 13.6 g/dL (11.2-15.7); MCH 30.6 pg (27.0-33.0); MCHC 32.6 % (32.0-36.0); MCV 94 fL (80-95); MPV 9.5 fL (8.0-11.0); Platelet Count 511 10^3/uL (130-400); RBC 4.44 10^6/uL (3.93-5.22); RDW 13.0 % (11.7-14.6); RDW-SD 44.8 fL; WBC 9.89 10^3/uL (4.4-10.8)
[2025-06-18 21:17] LABS: ALT 37 U/L (14-59); AST 18 U/L (15-37); Albumin 3.4 g/dL (3.4-5.0); Alkaline Phosphatase 122 U/L (46-116); Anion Gap 8.4 mmol/L (3-11); BUN 11 mg/dL (7-18); Bilirubin, Total 0.2 mg/dL (0.2-1.0); CO2 29.6 mmol/L (21.0-32.0); Calcium 9.4 mg/dL (8.5-10.1); Chloride 104 mmol/L (98-107); Estimated GFR 87.50 (mL/min/1.73m2); Glucose 138 mg/dL (74-106); Potassium 4.2 mmol/L (3.5-5.1); Sodium 142 mmol/L (136-145); Total Protein 7.4 g/dL (6.4-8.2)
[2025-06-18 21:21] LABS: Hemoglobin A1C 5.9 % (<5.7)
== END 2025-06-18 16:29 | disposition home or self-care (01) ==
LOC: NCHCN 16:28
PROVIDERS: PCP Family Medicine; Visit Provider Family Medicine
DX: I10 Essential (primary) hypertension (principal)
CPT/HCPCS: 80053; 85027; 83036

== ENCOUNTER → 2025-09-07 00:20 | Outpatient (CLI) | payer BC, SELFPAY ==
--- NOTE | 2025-09-07 09:20 | DI.MAMMO_ITS ---
Exam(s) MAMMO SCREENING EXAM: MAMMO SCREENING CLINICAL HISTORY: SCREENING,Z12.31 TECHNIQUE: Bilateral full field digital CC and MLO mammographic images were obtained with 3D tomosynthesis and utilizing computer aided detection (CAD). COMPARISON: Comparison is made with prior examinations. FINDINGS: Masses/Architectural Distortion: No suspicious masses or areas of architectural distortion are present. Microcalcifications: No suspicious pleomorphic-type are seen. Skin Thickening/Nipple Retraction: None. IMPRESSION: 1. No significant interval change with no specific features of malignancy noted. 2. Unless there is more urgent need, screening mammography is recommended, as per [employer] guidelines. BI-RADS Category 1 - Negative Breast Density - Category B - There are scattered areas of fibroglandular density. Breast density Category C or D implies that the patient has dense breast tissue. Dense breast tissue can make it harder to find cancer on a mammogram. Dense breast tissue is also associated with an increased risk of breast cancer. This information about the result of the mammogram report was provided to the patient to raise their awareness. Use this report when you speak with the patient about their risks for breast cancer, which includes their family history. At that time, you may recommend additional screening tests (Ultrasound or MRI) as these tests may add significant information. A negative radiographic report should not delay biopsy if a dominant or clinically suspicious mass is present. Up to ten percent of cancers are not identified on mammography. A negative report may reinforce clinical impression. Adenosis and dense breasts may obscure an underlying neoplasm. False positive reports average 6 to 10%. Patient will receive a letter notifying them of these results.
== END ==
LOC: DI 00:20
PROVIDERS: PCP Family Medicine; Visit Provider Family Medicine
DX: Z12.31 Encounter for screening mammogram for malignant neoplasm of breast (principal)
CPT/HCPCS: 77063; 77067